=== PATIENT | female | born 1935 | race Caucasian/White ===

== ENCOUNTER 2017-09-07 16:40 | Inpatient (IN) | payer MEDICARE, BC ==
[~2017-09-07] VITALS: Ht 160 cm; Wt 63.6 kg
[~2017-09-07 16:40] MED LIST: AMLO2.5T2 PO; CLON0.1T PO; CLON0.5T23 PO; HYDR-4069 PO; LEVO15TA5 PO; VALS80TA2 PO
[2017-09-07] MEDS ORDERED: ipratropium/albuterol 3ml nebule NEB ONE (17:30)
[2017-09-07 17:44] LABS: BASOPHILS # (AUTO) 0.1 X10'3 (0-0.2); BASOPHILS % (AUTO) 1.2 % (0-1); EOSINOPHILS # (AUTO) 0.1 X10'3 (0-0.9); EOSINOPHILS % (AUTO) 2.3 % (0-6); HEMATOCRIT 30.7 % (35.0-45.0); HEMOGLOBIN 10.6 g/dl (12.0-16.0); LYMPHOCYTES # (AUTO) 1.5 X10'3 (1.1-4.8); LYMPHOCYTES % (AUTO) 27.3 % (21-51); MEAN CORPUSCULAR HGB CONC 34.6 % (33.0-36.5); MEAN CORPUSCULAR VOLUME 89.5 FL (78-98); MEAN PLATELET VOLUME 7.1 FL (7.4-10.4); MONOCYTES # (AUTO) 0.6 X10'3 (0-0.9); MONOCYTES % (AUTO) 10.8 % (2-12); NEUTROPHILS # (AUTO) 3.1 X10'3 (1.8-7.7); NEUTROPHILS % (AUTO) 58.4 % (42-75); PLATELET COUNT 258 X10'3 (140-440); RED BLOOD COUNT 3.44 X10'6 (4.20-5.60); RED CELL DISTRIBUTION WIDTH 14.5 % (11.5-14.5); WHITE BLOOD COUNT 5.4 X10'3 (4.5-11.0)
[2017-09-07 17:52] LABS: PARTIAL THROMBOPLASTIN TIME 29 SECONDS (22-32); PROTHROMBIN TIME 10.6 SECONDS (9.0-12.0)
[2017-09-07 18:00] LABS: ALANINE AMINOTRANSFERASE 21 U/L (12-78); ALBUMIN 3.6 G/DL (3.4-5.0); ALBUMIN/GLOBULIN RATIO 0.8 (1.1-1.5); ALKALINE PHOSPHATASE 50 IU/L (46-116); ANION GAP 11 (8-16); ASPARTATE AMINO TRANSFERASE 23 U/L (10-37); BILIRUBIN,TOTAL 0.4 MG/DL (0.1-1.0); BLOOD UREA NITROGEN 20 MG/DL (7-18); BUN/CREATININE RATIO 16.4 (6.6-38.0); CALCIUM 9.5 MG/DL (8.5-10.1); CHLORIDE 88 MMOL/L (99-107); CREATININE 1.22 MG/DL (0.40-0.90); GLUCOSE 91 MG/DL (70-104); POTASSIUM 4.1 MMOL/L (3.5-5.1); SODIUM 123 MMOL/L (135-145); TOTAL CARBON DIOXIDE 24.3 MMOL/L (24-32); TOTAL PROTEIN 8.3 G/DL (6.4-8.2); eGFR 42 ML/MIN
[2017-09-07] MEDS ORDERED: cloNIDine 0.1 mg tablet PO ONE (18:45)
[2017-09-07] MEDS ORDERED: nitroGLYCERIN 1gm ointment UD TP ONE (19:55)
[2017-09-07] MEDS ORDERED: furosemide 10 MG/1 ML 10ml inj IV ONE (19:55)
[2017-09-07] MEDS ORDERED: HYDR-4069 PO (20:01)
[2017-09-07] MEDS ORDERED: CLIN-100 PO (20:01)
[2017-09-07] MEDS ORDERED: CLON0.5T23 PO (20:01)
[2017-09-07] MEDS ORDERED: VALS160T2 PO (20:01)
[2017-09-07] MEDS ORDERED: ASPI-611 PO (20:01)
[2017-09-07] MEDS ORDERED: TRAM50TA2 PO (20:01)
[2017-09-07] MEDS ORDERED: hydrALAZINE 20mg/ml inj. IV ONE (21:05)
[2017-09-07] MEDS ORDERED: mag hydrox/Alum hydrox/simeth 30ml oral suspension PO PRN (22:00)
[2017-09-07] MEDS ORDERED: acetaminophen 325mg tablet PO PRN (22:00)
[2017-09-07] MEDS ORDERED: magnesium hydroxide 30ml (MOM) UD suspension PO PRN (22:00)
[2017-09-07] MEDS ORDERED: ondansetron/PF 4mg/2ml inj IV PRN (22:00)
[2017-09-07] MEDS ORDERED: PREVCR TOP (22:18)
[2017-09-07] MEDS ORDERED: AMLO10TA13 PO (22:23)
[2017-09-07 23:50] VITALS: BP 205/74
[2017-09-08] VITALS (8 sets, daily range): BP systolic 122–236; BP diastolic 65–92
[2017-09-08] MEDS: hydrALAZINE 25 MG tablet PO SCH ×4 (00:07→23:09)
[2017-09-08] MEDS: heparin, porcine 5000 units/ml vial SQ SCH ×3 (00:14→16:05)
[2017-09-08] MEDS ORDERED: amLODIPine 5mg tablet PO STA (01:31)
[2017-09-08] MEDS ORDERED: nitroGLYCERIN 1gm ointment UD TP ONE ×2 (02:25→03:25)
[2017-09-08] MEDS: clindamycin 150mg capsule PO SCH ×4 (02:38→19:13)
[2017-09-08] MEDS ORDERED: enalaprilat dihydrate 2.5mg/2ml vial IV ONE (03:25)
[2017-09-08] MEDS ORDERED: losartan 50mg tablet PO ONE (04:15)
[2017-09-08 06:14] LABS: BASOPHILS # (AUTO) 0.1 X10'3 (0-0.2); EOSINOPHILS # (AUTO) 0.2 X10'3 (0-0.9); HEMATOCRIT 33.3 % (35.0-45.0); HEMOGLOBIN 11.4 g/dl (12.0-16.0); LYMPHOCYTES # (AUTO) 1.2 X10'3 (1.1-4.8); LYMPHOCYTES % (AUTO) 22.9 % (21-51); MEAN CORPUSCULAR HGB CONC 34.2 % (33.0-36.5); MEAN CORPUSCULAR VOLUME 90.7 FL (78-98); MEAN PLATELET VOLUME 7.7 FL (7.4-10.4); MONOCYTES # (AUTO) 0.7 X10'3 (0-0.9); MONOCYTES % (AUTO) 13.6 % (2-12); NEUTROPHILS # (AUTO) 3.1 X10'3 (1.8-7.7); NEUTROPHILS % (AUTO) 58.5 % (42-75); PLATELET COUNT 288 X10'3 (140-440); RED BLOOD COUNT 3.67 X10'6 (4.20-5.60); RED CELL DISTRIBUTION WIDTH 14.7 % (11.5-14.5); WHITE BLOOD COUNT 5.2 X10'3 (4.5-11.0)
[2017-09-08 06:27] LABS: ALANINE AMINOTRANSFERASE 23 U/L (12-78); ALBUMIN 3.8 G/DL (3.4-5.0); ALBUMIN/GLOBULIN RATIO 0.7 (1.1-1.5); ALKALINE PHOSPHATASE 54 IU/L (46-116); ANION GAP 10 (8-16); ASPARTATE AMINO TRANSFERASE 20 U/L (10-37); BILIRUBIN,TOTAL 0.4 MG/DL (0.1-1.0); BLOOD UREA NITROGEN 20 MG/DL (7-18); BUN/CREATININE RATIO 15.6 (6.6-38.0); CALCIUM 10.2 MG/DL (8.5-10.1); CHLORIDE 89 MMOL/L (99-107); CREATININE 1.28 MG/DL (0.40-0.90); GLUCOSE 97 MG/DL (70-104); POTASSIUM 3.7 MMOL/L (3.5-5.1); SODIUM 126 MMOL/L (135-145); TOTAL CARBON DIOXIDE 27.4 MMOL/L (24-32); TOTAL PROTEIN 8.9 G/DL (6.4-8.2); eGFR 40 ML/MIN
[2017-09-08] MEDS: traMADol 50MG tablet PO SCH ×2 (07:49→19:13)
[2017-09-08] MEDS: amLODIPine 5mg tablet PO SCH ×2 (07:49→19:13)
[2017-09-08] MEDS ORDERED: iohexol 350MG/ML 100ml bottle IV ONE (11:14)
[2017-09-08] MEDS ORDERED: CETI-102 PO (13:02)
[2017-09-08] MEDS ORDERED: FLUT16SP10 (13:03)
[2017-09-08] MEDS ORDERED: CALC-965 PO (13:04)
[2017-09-08] MEDS ORDERED: MULT-955 PO (13:05)
[2017-09-08] MEDS: lactobacillus rhamnosus 10,000 MMU CELLS/CAPSULE PO SCH (19:13)
[2017-09-08] MEDS ORDERED: non-formulary drug (Clonazepam 1 TAB) PO SCH (21:00)
[2017-09-08] MEDS ORDERED: non-formulary drug (Aspirin (Aspir 81) 1 TAB) PO SCH (21:00)
[2017-09-08] MEDS: clonazePAM 0.5mg tablet PO SCH (21:31)
[2017-09-08] MEDS: aspirin 81mg tablet.DR PO SCH (21:31)
[2017-09-09] VITALS (9 sets, daily range): BP systolic 132–213; BP diastolic 54–91
[2017-09-09] MEDS: clindamycin 150mg capsule PO SCH ×4 (01:05→20:41)
[2017-09-09] MEDS: heparin, porcine 5000 units/ml vial SQ SCH ×3 (01:05→15:46)
[2017-09-09 04:59] LABS: BASOPHILS # (AUTO) 0.1 X10'3 (0-0.2); BASOPHILS % (AUTO) 1.1 % (0-1); EOSINOPHILS # (AUTO) 0.3 X10'3 (0-0.9); EOSINOPHILS % (AUTO) 4.5 % (0-6); HEMATOCRIT 32.1 % (35.0-45.0); LYMPHOCYTES # (AUTO) 1.3 X10'3 (1.1-4.8); MEAN CORPUSCULAR HEMOGLOBIN 30.7 PG (27.0-31.0); MEAN CORPUSCULAR HGB CONC 34.3 % (33.0-36.5); MEAN CORPUSCULAR VOLUME 89.6 FL (78-98); MEAN PLATELET VOLUME 7.8 FL (7.4-10.4); MONOCYTES # (AUTO) 0.9 X10'3 (0-0.9); MONOCYTES % (AUTO) 13.2 % (2-12); NEUTROPHILS # (AUTO) 4.4 X10'3 (1.8-7.7); NEUTROPHILS % (AUTO) 63.2 % (42-75); PLATELET COUNT 270 X10'3 (140-440); RED BLOOD COUNT 3.59 X10'6 (4.20-5.60); RED CELL DISTRIBUTION WIDTH 14.5 % (11.5-14.5)
[2017-09-09 05:35] LABS: ALANINE AMINOTRANSFERASE 20 U/L (12-78); ALBUMIN 3.5 G/DL (3.4-5.0); ALBUMIN/GLOBULIN RATIO 0.7 (1.1-1.5); ALKALINE PHOSPHATASE 50 IU/L (46-116); ANION GAP 12 (8-16); ASPARTATE AMINO TRANSFERASE 22 U/L (10-37); BILIRUBIN,TOTAL 0.3 MG/DL (0.1-1.0); BLOOD UREA NITROGEN 29 MG/DL (7-18); BUN/CREATININE RATIO 17.5 (6.6-38.0); CALCIUM 9.3 MG/DL (8.5-10.1); CHLORIDE 91 MMOL/L (99-107); CREATININE 1.66 MG/DL (0.40-0.90); GLUCOSE 100 MG/DL (70-104); POTASSIUM 3.9 MMOL/L (3.5-5.1); SODIUM 127 MMOL/L (135-145); TOTAL PROTEIN 8.4 G/DL (6.4-8.2); eGFR 30 ML/MIN
[2017-09-09] MEDS: amLODIPine 5mg tablet PO SCH ×2 (07:42→20:41)
[2017-09-09] MEDS: traMADol 50MG tablet PO SCH ×2 (07:43→20:41)
[2017-09-09] MEDS: lactobacillus rhamnosus 10,000 MMU CELLS/CAPSULE PO SCH ×2 (07:43→20:41)
[2017-09-09] MEDS: hydrALAZINE 25 MG tablet PO SCH ×2 (07:43→15:46)
[2017-09-09] MEDS ORDERED: hydrALAZINE 20mg/ml inj. IV PRN (09:15)
[2017-09-09] MEDS: cloNIDine 0.1 mg tablet PO SCH ×3 (09:36→20:42)
[2017-09-09] MEDS: normal saline 1000ml 1,000 ML IV SCH (13:21)
[2017-09-09] MEDS: aspirin 81mg tablet.DR PO SCH (20:41)
[2017-09-09] MEDS: clonazePAM 0.5mg tablet PO SCH (20:44)
[2017-09-10] MEDS: hydrALAZINE 25 MG tablet PO SCH ×3 (00:53→17:02)
[2017-09-10] MEDS: heparin, porcine 5000 units/ml vial SQ SCH ×3 (00:53→17:00)
[2017-09-10] MEDS: clindamycin 150mg capsule PO SCH ×4 (01:00→20:43)
[2017-09-10 03:00] VITALS: BP 135/53
[2017-09-10] MEDS: normal saline 1000ml 1,000 ML IV SCH ×3 (03:28→21:02)
[2017-09-10 05:30] VITALS: BP 143/54
[2017-09-10 05:59] LABS: BASOPHILS # (AUTO) 0.1 X10'3 (0-0.2); BASOPHILS % (AUTO) 1.5 % (0-1); EOSINOPHILS # (AUTO) 0.4 X10'3 (0-0.9); EOSINOPHILS % (AUTO) 8.1 % (0-6); HEMATOCRIT 28.5 % (35.0-45.0); HEMOGLOBIN 9.8 g/dl (12.0-16.0); LYMPHOCYTES # (AUTO) 1.6 X10'3 (1.1-4.8); LYMPHOCYTES % (AUTO) 31.7 % (21-51); MEAN CORPUSCULAR HEMOGLOBIN 30.6 PG (27.0-31.0); MEAN CORPUSCULAR HGB CONC 34.2 % (33.0-36.5); MEAN CORPUSCULAR VOLUME 89.5 FL (78-98); MONOCYTES # (AUTO) 0.7 X10'3 (0-0.9); MONOCYTES % (AUTO) 15.1 % (2-12); NEUTROPHILS # (AUTO) 2.1 X10'3 (1.8-7.7); NEUTROPHILS % (AUTO) 43.6 % (42-75); PLATELET COUNT 227 X10'3 (140-440); RED BLOOD COUNT 3.19 X10'6 (4.20-5.60); RED CELL DISTRIBUTION WIDTH 14.5 % (11.5-14.5); WHITE BLOOD COUNT 4.9 X10'3 (4.5-11.0)
[2017-09-10 06:13] LABS: ALANINE AMINOTRANSFERASE 21 U/L (12-78); ALBUMIN/GLOBULIN RATIO 0.7 (1.1-1.5); ANION GAP 8 (8-16); ASPARTATE AMINO TRANSFERASE 21 U/L (10-37); BILIRUBIN,TOTAL 0.2 MG/DL (0.1-1.0); BLOOD UREA NITROGEN 38 MG/DL (7-18); BUN/CREATININE RATIO 17.9 (6.6-38.0); CALCIUM 8.1 MG/DL (8.5-10.1); CHLORIDE 95 MMOL/L (99-107); CREATININE 2.12 MG/DL (0.40-0.90); GLUCOSE 87 MG/DL (70-104); POTASSIUM 4.5 MMOL/L (3.5-5.1); SODIUM 127 MMOL/L (135-145); TOTAL CARBON DIOXIDE 24.5 MMOL/L (24-32); TOTAL PROTEIN 7.3 G/DL (6.4-8.2); eGFR 22 ML/MIN
[2017-09-10 06:14] LABS: ALKALINE PHOSPHATASE 44 IU/L (46-116)
[2017-09-10] MEDS: amLODIPine 5mg tablet PO SCH ×2 (07:33→20:43)
[2017-09-10] MEDS: traMADol 50MG tablet PO SCH ×2 (07:33→20:43)
[2017-09-10] MEDS: lactobacillus rhamnosus 10,000 MMU CELLS/CAPSULE PO SCH ×2 (07:33→20:43)
[2017-09-10] MEDS: cloNIDine 0.1 mg tablet PO SCH ×3 (07:33→20:43)
[2017-09-10 11:00] VITALS: BP 130/46
[2017-09-10 15:00] VITALS: BP 143/53
[2017-09-10 19:00] VITALS: BP 180/58
[2017-09-10] MEDS: aspirin 81mg tablet.DR PO SCH (20:43)
[2017-09-10] MEDS: clonazePAM 0.5mg tablet PO SCH (20:48)
[2017-09-10 23:00] VITALS: BP 166/60
[2017-09-11] MEDS: heparin, porcine 5000 units/ml vial SQ SCH ×2 (00:57→07:52)
[2017-09-11] MEDS: hydrALAZINE 25 MG tablet PO SCH ×2 (00:57→07:53)
[2017-09-11] MEDS: clindamycin 150mg capsule PO SCH ×2 (01:00→07:52)
[2017-09-11 03:00] VITALS: BP 170/55
[2017-09-11 05:34] LABS: BASOPHILS # (AUTO) 0.1 X10'3 (0-0.2); BASOPHILS % (AUTO) 1.5 % (0-1); EOSINOPHILS # (AUTO) 0.5 X10'3 (0-0.9); EOSINOPHILS % (AUTO) 8.6 % (0-6); HEMATOCRIT 26.8 % (35.0-45.0); HEMOGLOBIN 9.1 g/dl (12.0-16.0); LYMPHOCYTES # (AUTO) 1.6 X10'3 (1.1-4.8); LYMPHOCYTES % (AUTO) 28.1 % (21-51); MEAN CORPUSCULAR HEMOGLOBIN 30.4 PG (27.0-31.0); MEAN CORPUSCULAR HGB CONC 33.9 % (33.0-36.5); MEAN CORPUSCULAR VOLUME 89.8 FL (78-98); MEAN PLATELET VOLUME 7.9 FL (7.4-10.4); MONOCYTES # (AUTO) 0.7 X10'3 (0-0.9); MONOCYTES % (AUTO) 12.9 % (2-12); NEUTROPHILS # (AUTO) 2.7 X10'3 (1.8-7.7); NEUTROPHILS % (AUTO) 48.9 % (42-75); PLATELET COUNT 233 X10'3 (140-440); RED BLOOD COUNT 2.99 X10'6 (4.20-5.60); RED CELL DISTRIBUTION WIDTH 14.7 % (11.5-14.5); WHITE BLOOD COUNT 5.5 X10'3 (4.5-11.0)
[2017-09-11 05:59] LABS: ANION GAP 8 (8-16); BILIRUBIN,TOTAL 0.3 MG/DL (0.1-1.0); BLOOD UREA NITROGEN 31 MG/DL (7-18); BUN/CREATININE RATIO 19.5 (6.6-38.0); CALCIUM 8.1 MG/DL (8.5-10.1); CHLORIDE 97 MMOL/L (99-107); CREATININE 1.59 MG/DL (0.40-0.90); GLUCOSE 85 MG/DL (70-104); POTASSIUM 4.6 MMOL/L (3.5-5.1); SODIUM 127 MMOL/L (135-145); TOTAL CARBON DIOXIDE 22.5 MMOL/L (24-32); eGFR 31 ML/MIN
[2017-09-11 06:00] VITALS: BP 174/60
[2017-09-11 06:00] LABS: ALANINE AMINOTRANSFERASE 22 U/L (12-78); ALBUMIN/GLOBULIN RATIO 0.7 (1.1-1.5); ALKALINE PHOSPHATASE 47 IU/L (46-116); ASPARTATE AMINO TRANSFERASE 22 U/L (10-37); TOTAL PROTEIN 7.1 G/DL (6.4-8.2)
[2017-09-11] MEDS: cloNIDine 0.1 mg tablet PO SCH (07:53)
[2017-09-11] MEDS: lactobacillus rhamnosus 10,000 MMU CELLS/CAPSULE PO SCH (07:53)
[2017-09-11] MEDS: traMADol 50MG tablet PO SCH (07:53)
[2017-09-11] MEDS: amLODIPine 5mg tablet PO SCH (07:53)
[2017-09-11 11:00] VITALS: BP 134/58
== END 2017-09-11 15:00 | DRG 682 ==
LOC: ER 16:40 → ED HOLD 21:56 → PCU 3S 23:45
PROVIDERS: ADMIT Internal Medicine; ATTEND Family Medicine
PROC: B3201ZZ Computerized Tomography (CT Scan) of Thoracic Aorta using Low Osmolar Contrast (ICD-10-PCS; principal; 2017-09-08)
DX: N17.9 Acute kidney failure, unspecified (principal); J96.21 Acute and chronic respiratory failure with hypoxia; I16.1 Hypertensive emergency; E87.1 Hypo-osmolality and hyponatremia; G45.9 Transient cerebral ischemic attack, unspecified; I12.9 Hypertensive chronic kidney disease with stage 1 through stage 4 chronic kidney disease, or unspecified chronic kidney disease; I70.1 Atherosclerosis of renal artery; M35.00 Sjogren syndrome, unspecified; N18.9 Chronic kidney disease, unspecified; F17.200 Nicotine dependence, unspecified, uncomplicated; S99.929D Unspecified injury of unspecified foot, subsequent encounter; Z90.710 Acquired absence of both cervix and uterus; Z88.2 Allergy status to sulfonamides; Z88.0 Allergy status to penicillin; Z88.8 Allergy status to other drugs, medicaments and biological substances; Z79.82 Long term (current) use of aspirin; Z79.899 Other long term (current) drug therapy; Z85.41 Personal history of malignant neoplasm of cervix uteri; W20.8XXD Other cause of strike by thrown, projected or falling object, subsequent encounter; Y92.89 Other specified places as the place of occurrence of the external cause
CPT/HCPCS: 36415; 70450; 71045; 71275; 74174; 80053; 83880; 84484; 85025; 85610; 85730; 87070; 93005; 93306; 93975; 94640; 94760; 96374; 96375; 97116; 97162; 97530; 99285; J0360; J1644; J1940; J7030; Q9967

== ENCOUNTER 2017-10-09 22:32 | Inpatient (IN) | payer MEDICARE, BC ==
[~2017-10-09] VITALS: Ht 160 cm; Wt 62.7 kg
[~2017-10-09 22:32] MED LIST changes: -AMLO2.5T2 PO; +ASPI-611 PO; +CALC-965 PO; +CETI-102 PO; +FLUT16SP10; +MULT-955 PO; +PREVCR TOP; +TRAM50TA2 PO; +VALS160T2 PO; -VALS80TA2 PO
[2017-10-09 23:20] LABS: BASOPHILS % (AUTO) 0.3 % (0-1); EOSINOPHILS # (AUTO) 0.1 X10'3 (0-0.9); EOSINOPHILS % (AUTO) 1.1 % (0-6); HEMATOCRIT 37.1 % (35.0-45.0); HEMOGLOBIN 12.4 g/dl (12.0-16.0); LYMPHOCYTES % (AUTO) 15.1 % (21-51); MEAN CORPUSCULAR HEMOGLOBIN 30.3 PG (27.0-31.0); MEAN CORPUSCULAR HGB CONC 33.4 % (33.0-36.5); MEAN CORPUSCULAR VOLUME 90.6 FL (78-98); MEAN PLATELET VOLUME 7.6 FL (7.4-10.4); MONOCYTES # (AUTO) 0.3 X10'3 (0-0.9); MONOCYTES % (AUTO) 3.8 % (2-12); NEUTROPHILS # (AUTO) 5.3 X10'3 (1.8-7.7); NEUTROPHILS % (AUTO) 79.7 % (42-75); PLATELET COUNT 324 X10'3 (140-440); RED CELL DISTRIBUTION WIDTH 14.7 % (11.5-14.5); WHITE BLOOD COUNT 6.6 X10'3 (4.5-11.0)
[2017-10-09 23:33] LABS: PARTIAL THROMBOPLASTIN TIME 27 SECONDS (22-32); PROTHROMBIN TIME 10.7 SECONDS (9.0-12.0)
[2017-10-09 23:37] LABS: ALANINE AMINOTRANSFERASE 22 U/L (12-78); ALBUMIN 3.7 G/DL (3.4-5.0); ALBUMIN/GLOBULIN RATIO 0.6 (1.1-1.5); ALKALINE PHOSPHATASE 65 IU/L (46-116); ANION GAP 10 (8-16); ASPARTATE AMINO TRANSFERASE 20 U/L (10-37); BILIRUBIN,TOTAL 0.4 MG/DL (0.1-1.0); BLOOD UREA NITROGEN 21 MG/DL (7-18); BUN/CREATININE RATIO 22.3 (6.6-38.0); CHLORIDE 92 MMOL/L (99-107); CREATININE 0.94 MG/DL (0.40-0.90); GLUCOSE 176 MG/DL (70-104); SODIUM 127 MMOL/L (135-145); TOTAL CARBON DIOXIDE 24.8 MMOL/L (24-32); TOTAL PROTEIN 9.5 G/DL (6.4-8.2); eGFR 57 ML/MIN
[2017-10-09 23:41] LABS: CLARITY,URINE CLOUDY (Clear); COLOR,URINE YELLOW (Yellow); GLUCOSE, URINE NEGATIVE (Neg); KETONES,URINE 15 mg/dl (Neg); LEUKOCYTE ESTERASE ,URINE TRACE (Neg); NITRITES, URINE NEGATIVE (Neg); OCCULT BLOOD,URINE TRACE-INTACT (Neg); PROTEIN,URINE 100 mg/dl (Neg); UROBILINOGEN,URINE 0.2 E.U/dL (0.2-1.0)
[2017-10-09 23:46] LABS: UA COLLECTION TYPE FOLEY CATH
[2017-10-09 23:47] LABS: BACTERIA,URINE 4+ /HPF (Neg); SQUAMOUS EPITHELIAL CELL,UR FEW /LPF (FEW); WBC CLUMPS,URINE MODERATE /HPF (NEGATIVE); WBC,URINE 50-100 /HPF (0-4)
[2017-10-09] MEDS ORDERED: hydrALAZINE 20mg/ml inj. IV ONE (23:50)
[2017-10-10] MEDS ORDERED: normal saline 1000ML IV soln IVB ONE ×2 (00:15→03:25)
[2017-10-10] MEDS ORDERED: cloNIDine 0.1 mg tablet PO ONE (00:15)
[2017-10-10] MEDS ORDERED: normal saline 1000ml 1,000 ML IV ONE (00:15)
[2017-10-10] MEDS ORDERED: hyDRALAzine 10mg tablet PO SCH ×2 (00:25→03:20)
[2017-10-10] MEDS: diatr meglu/diatrizoate 30ml oral sol.-(3 dose) bottle PO SCH ×3 (00:33→01:45)
[2017-10-10] MEDS ORDERED: CefTRIAXone 2gm/D5W 50ml 50 ML IV ONE (00:45)
[2017-10-10] MEDS ORDERED: iohexol 300mg/ml 100ml inj. ONE (01:45)
[2017-10-10] MEDS ORDERED: hyDRALAzine 10mg tablet PO ONE (03:20)
[2017-10-10] MEDS ORDERED: hydrALAZINE 20mg/ml inj. IV ONE (03:20)
[2017-10-10] MEDS ORDERED: magnesium hydroxide 30ml (MOM) UD suspension PO PRN (04:25)
[2017-10-10] MEDS ORDERED: morphine 4 MG/ML inj SYRINge IV PRN (04:25)
[2017-10-10] MEDS ORDERED: acetaminophen 325mg tablet PO PRN ×2 (04:25)
[2017-10-10] MEDS ORDERED: mag hydrox/Alum hydrox/simeth 30ml oral suspension PO PRN (04:25)
[2017-10-10] MEDS ORDERED: ondansetron/PF 4mg/2ml inj IV PRN (04:25)
[2017-10-10] MEDS: normal saline 1000ml 1,000 ML IV SCH ×2 (05:03→16:08)
[2017-10-10] MEDS: metroNIDAZOLE-Flagyl 500mg/NS 100 ML IV SCH ×3 (08:12→23:54)
[2017-10-10] MEDS: cloNIDine 0.1 mg tablet PO SCH ×3 (08:15→23:29)
[2017-10-10] MEDS: losartan 50mg tablet PO SCH (08:15)
[2017-10-10] MEDS: hydrALAZINE 25 MG tablet PO SCH ×3 (08:16→23:29)
[2017-10-10] MEDS: lactobacillus rhamnosus 10,000 MMU CELLS/CAPSULE PO SCH ×2 (08:16→20:04)
[2017-10-10] MEDS ORDERED: amLODIPine 5mg tablet PO ONE (09:25)
[2017-10-10] MEDS: levoFLOXACIN-Levaquin 500mg/D5 100 ML IV SCH (09:38)
[2017-10-10 11:25] VITALS: BP 150/71
[2017-10-10] MEDS ORDERED: nitroGLYCERIN 0.4mg/hour patch TD ONE (11:50)
[2017-10-10] MEDS ORDERED: AMLO10TA4 PO (12:07)
[2017-10-10] MEDS ORDERED: SINCALIDE IV ONE (12:10)
[2017-10-10] MEDS ORDERED: NORMAL SALINE IV ONE (12:10)
[2017-10-10 18:46] VITALS: BP 135/59
[2017-10-10] MEDS: clonazePAM 0.5mg tablet PO SCH (20:04)
[2017-10-10] MEDS ORDERED: non-formulary drug (Clonazepam 1 TAB) PO SCH (21:00)
[2017-10-10] MEDS ORDERED: clonazePAM 0.5mg tablet PO SCH (21:00)
[2017-10-10 23:26] VITALS: BP 103/76
[2017-10-11] MEDS: normal saline 1000ml 1,000 ML IV SCH ×3 (00:22→20:22)
[2017-10-11 05:13] LABS: BASOPHILS # (AUTO) 0.1 X10'3 (0-0.2); BASOPHILS % (AUTO) 0.9 % (0-1); EOSINOPHILS # (AUTO) 0.1 X10'3 (0-0.9); EOSINOPHILS % (AUTO) 1.7 % (0-6); HEMATOCRIT 29.2 % (35.0-45.0); HEMOGLOBIN 9.9 g/dl (12.0-16.0); LYMPHOCYTES # (AUTO) 1.4 X10'3 (1.1-4.8); LYMPHOCYTES % (AUTO) 18.2 % (21-51); MEAN CORPUSCULAR HEMOGLOBIN 30.4 PG (27.0-31.0); MEAN CORPUSCULAR HGB CONC 33.7 % (33.0-36.5); MEAN PLATELET VOLUME 7.7 FL (7.4-10.4); MONOCYTES # (AUTO) 0.7 X10'3 (0-0.9); MONOCYTES % (AUTO) 9.3 % (2-12); NEUTROPHILS # (AUTO) 5.6 X10'3 (1.8-7.7); NEUTROPHILS % (AUTO) 69.9 % (42-75); PLATELET COUNT 257 X10'3 (140-440); RED BLOOD COUNT 3.25 X10'6 (4.20-5.60); RED CELL DISTRIBUTION WIDTH 14.9 % (11.5-14.5)
[2017-10-11] MEDS: hydrALAZINE 20mg/ml inj. IV PRN (05:39)
[2017-10-11 06:07] LABS: ALBUMIN 2.8 G/DL (3.4-5.0); ANION GAP 9 (8-16); BLOOD UREA NITROGEN 22 MG/DL (7-18); BUN/CREATININE RATIO 21.6 (6.6-38.0); CALCIUM 7.9 MG/DL (8.5-10.1); CHLORIDE 102 MMOL/L (99-107); CREATININE 1.02 MG/DL (0.40-0.90); GLUCOSE 90 MG/DL (70-104); POTASSIUM 3.6 MMOL/L (3.5-5.1); SODIUM 132 MMOL/L (135-145); TOTAL CARBON DIOXIDE 21.3 MMOL/L (24-32); eGFR 52 ML/MIN
[2017-10-11 07:13] VITALS: BP 144/71
[2017-10-11] MEDS: levoFLOXACIN-Levaquin 500mg/D5 100 ML IV SCH (07:49)
[2017-10-11] MEDS: metroNIDAZOLE-Flagyl 500mg/NS 100 ML IV SCH ×3 (07:49→23:06)
[2017-10-11] MEDS: cloNIDine 0.1 mg tablet PO SCH ×3 (07:50→23:06)
[2017-10-11] MEDS: lactobacillus rhamnosus 10,000 MMU CELLS/CAPSULE PO SCH ×2 (07:50→20:31)
[2017-10-11] MEDS: amLODIPine 5mg tablet PO SCH (07:50)
[2017-10-11] MEDS: losartan 50mg tablet PO SCH (07:50)
[2017-10-11] MEDS: [UNRECOGNIZED DRUG - OTHER] PO SCH (07:50)
[2017-10-11] MEDS: hydrALAZINE 25 MG tablet PO SCH ×3 (07:50→23:06)
[2017-10-11] MEDS ORDERED: amLODIPine 5mg tablet PO SCH (08:00)
[2017-10-11] MEDS ORDERED: nitroGLYCERIN 0.4mg/hour patch TD SCH (08:00)
[2017-10-11 11:21] VITALS: BP 122/54
[2017-10-11 18:00] VITALS: BP 157/75
[2017-10-11] MEDS: clonazePAM 0.5mg tablet PO SCH (20:31)
[2017-10-11 22:00] VITALS: BP 142/67
[2017-10-12 06:32] LABS: BASOPHILS # (AUTO) 0.1 X10'3 (0-0.2); BASOPHILS % (AUTO) 0.8 % (0-1); EOSINOPHILS # (AUTO) 0.2 X10'3 (0-0.9); EOSINOPHILS % (AUTO) 3.2 % (0-6); HEMATOCRIT 27.2 % (35.0-45.0); LYMPHOCYTES # (AUTO) 1.6 X10'3 (1.1-4.8); LYMPHOCYTES % (AUTO) 23.6 % (21-51); MEAN CORPUSCULAR HEMOGLOBIN 30.1 PG (27.0-31.0); MEAN CORPUSCULAR HGB CONC 33.2 % (33.0-36.5); MEAN CORPUSCULAR VOLUME 90.8 FL (78-98); MEAN PLATELET VOLUME 7.7 FL (7.4-10.4); MONOCYTES # (AUTO) 0.8 X10'3 (0-0.9); MONOCYTES % (AUTO) 12.2 % (2-12); NEUTROPHILS % (AUTO) 60.2 % (42-75); PLATELET COUNT 226 X10'3 (140-440); RED BLOOD COUNT 2.99 X10'6 (4.20-5.60); RED CELL DISTRIBUTION WIDTH 14.9 % (11.5-14.5); WHITE BLOOD COUNT 6.7 X10'3 (4.5-11.0)
[2017-10-12] MEDS: hydrALAZINE 20mg/ml inj. IV PRN (06:36)
[2017-10-12 06:45] LABS: ALBUMIN 2.7 G/DL (3.4-5.0); ANION GAP 5 (8-16); BLOOD UREA NITROGEN 20 MG/DL (7-18); BUN/CREATININE RATIO 22.5 (6.6-38.0); CALCIUM 7.7 MG/DL (8.5-10.1); CHLORIDE 103 MMOL/L (99-107); CREATININE 0.89 MG/DL (0.40-0.90); GLUCOSE 89 MG/DL (70-104); POTASSIUM 3.4 MMOL/L (3.5-5.1); SODIUM 131 MMOL/L (135-145); TOTAL CARBON DIOXIDE 22.8 MMOL/L (24-32); eGFR 61 ML/MIN
[2017-10-12] MEDS: [UNRECOGNIZED DRUG - OTHER] PO SCH (08:00)
[2017-10-12] MEDS: levoFLOXACIN-Levaquin 500mg/D5 100 ML IV SCH ×2 (09:02→13:48)
[2017-10-12] MEDS: pantoprazole 40 MG vial IV SCH (09:02)
[2017-10-12] MEDS: metroNIDAZOLE-Flagyl 500mg/NS 100 ML IV SCH ×3 (09:02→23:52)
[2017-10-12] MEDS: losartan 50mg tablet PO SCH (09:03)
[2017-10-12] MEDS: lactobacillus rhamnosus 10,000 MMU CELLS/CAPSULE PO SCH ×2 (09:03→20:22)
[2017-10-12] MEDS: amLODIPine 5mg tablet PO SCH (09:03)
[2017-10-12] MEDS: cloNIDine 0.1 mg tablet PO SCH ×3 (09:03→23:52)
[2017-10-12] MEDS: hydrALAZINE 25 MG tablet PO SCH ×3 (09:03→23:53)
[2017-10-12] MEDS: normal saline 1000ml 1,000 ML IV SCH ×2 (09:04→16:22)
[2017-10-12 09:08] VITALS: BP 158/97
[2017-10-12] MEDS ORDERED: polyvinyl alcohol ophthalmic drops 15ml bottle EACHEYE PRN (13:10)
[2017-10-12 14:00] VITALS: BP 154/68
[2017-10-12 18:00] VITALS: BP 157/65
[2017-10-12] MEDS: clonazePAM 0.5mg tablet PO SCH (20:22)
[2017-10-12 22:00] VITALS: BP 144/59
[2017-10-13] MEDS: normal saline 1000ml 1,000 ML IV SCH (02:22)
[2017-10-13 05:00] VITALS: BP 154/69
[2017-10-13 07:17] LABS: ALBUMIN 3.1 G/DL (3.4-5.0); ANION GAP 11 (8-16); BLOOD UREA NITROGEN 16 MG/DL (7-18); BUN/CREATININE RATIO 15.7 (6.6-38.0); CALCIUM 8.1 MG/DL (8.5-10.1); CHLORIDE 100 MMOL/L (99-107); CREATININE 1.02 MG/DL (0.40-0.90); GLUCOSE 92 MG/DL (70-104); POTASSIUM 3.3 MMOL/L (3.5-5.1); SODIUM 132 MMOL/L (135-145); TOTAL CARBON DIOXIDE 20.9 MMOL/L (24-32); eGFR 52 ML/MIN
[2017-10-13 07:29] LABS: BASOPHILS % (AUTO) 0.4 % (0-1); EOSINOPHILS # (AUTO) 0.4 X10'3 (0-0.9); EOSINOPHILS % (AUTO) 4.8 % (0-6); HEMATOCRIT 30.5 % (35.0-45.0); HEMOGLOBIN 10.3 g/dl (12.0-16.0); LYMPHOCYTES # (AUTO) 1.5 X10'3 (1.1-4.8); MEAN CORPUSCULAR HEMOGLOBIN 30.3 PG (27.0-31.0); MEAN CORPUSCULAR HGB CONC 33.7 % (33.0-36.5); MONOCYTES # (AUTO) 0.9 X10'3 (0-0.9); MONOCYTES % (AUTO) 10.5 % (2-12); NEUTROPHILS # (AUTO) 5.7 X10'3 (1.8-7.7); NEUTROPHILS % (AUTO) 66.3 % (42-75); PLATELET COUNT 248 X10'3 (140-440); RED CELL DISTRIBUTION WIDTH 15.5 % (11.5-14.5); WHITE BLOOD COUNT 8.6 X10'3 (4.5-11.0)
[2017-10-13] MEDS: [UNRECOGNIZED DRUG - OTHER] PO SCH (08:00)
[2017-10-13] MEDS: amLODIPine 5mg tablet PO SCH (08:02)
[2017-10-13] MEDS: hydrALAZINE 25 MG tablet PO SCH ×2 (08:03→15:26)
[2017-10-13] MEDS: lactobacillus rhamnosus 10,000 MMU CELLS/CAPSULE PO SCH (08:03)
[2017-10-13] MEDS: pantoprazole 40 MG vial IV SCH (08:03)
[2017-10-13] MEDS: losartan 50mg tablet PO SCH (08:03)
[2017-10-13] MEDS: levoFLOXACIN-Levaquin 500mg/D5 100 ML IV SCH (08:03)
[2017-10-13] MEDS: cloNIDine 0.1 mg tablet PO SCH ×2 (08:03→15:26)
[2017-10-13 12:00] VITALS: BP 156/55
[2017-10-13] MEDS ORDERED: CIPR-230 PO (12:22)
[2017-10-13] MEDS: metroNIDAZOLE-Flagyl 500mg/NS 100 ML IV SCH ×2 (14:57→15:26)
[2017-10-13] MEDS ORDERED: potassium Cl 20 mEq SR tablet PO PRN ×2 (16:50)
[2017-10-13] MEDS ORDERED: potassium Cl 40MEQ/NS 500ml 500 ML IV PRN ×2 (16:50)
== END 2017-10-13 17:15 | disposition home health service (06) | DRG 690 ==
LOC: ER 22:34 → ED HOLD 10-10 04:22 → ORTHO 4S 10-10 11:31
PROVIDERS: ADMIT Internal Medicine; ATTEND Internal Medicine
PROC: BW211ZZ Computerized Tomography (CT Scan) of Abdomen and Pelvis using Low Osmolar Contrast (ICD-10-PCS; principal; 2017-10-10)
PROC: CF141ZZ Planar Nuclear Medicine Imaging of Gallbladder using Technetium 99m (Tc-99m) (ICD-10-PCS; 2017-10-10)
PROC: 5A09357 Assistance with Respiratory Ventilation, Less than 24 Consecutive Hours, Continuous Positive Airway Pressure (ICD-10-PCS; 2017-10-12)
DX: N39.0 Urinary tract infection, site not specified (principal); N17.9 Acute kidney failure, unspecified; E87.1 Hypo-osmolality and hyponatremia; K80.20 Calculus of gallbladder without cholecystitis without obstruction; I16.0 Hypertensive urgency; I12.9 Hypertensive chronic kidney disease with stage 1 through stage 4 chronic kidney disease, or unspecified chronic kidney disease; R29.810 Facial weakness; R47.1 Dysarthria and anarthria; B96.1 Klebsiella pneumoniae [K. pneumoniae] as the cause of diseases classified elsewhere; I70.1 Atherosclerosis of renal artery; N18.9 Chronic kidney disease, unspecified; Z85.41 Personal history of malignant neoplasm of cervix uteri; Z87.891 Personal history of nicotine dependence; Z88.0 Allergy status to penicillin; Z88.2 Allergy status to sulfonamides; Z88.8 Allergy status to other drugs, medicaments and biological substances; Z90.710 Acquired absence of both cervix and uterus; Z79.82 Long term (current) use of aspirin; Z79.899 Other long term (current) drug therapy; Z91.19 Patient's noncompliance with other medical treatment and regimen
CPT/HCPCS: 36415; 70450; 71045; 74177; 76700; 78226; 80048; 80053; 81001; 82948; 83690; 84145; 85025; 85610; 85730; 87040; 87077; 87088; 87186; 96365; 96375; 96376; 97110; 97116; 97162; 97530; 99285; A6250; A9537; C9113; J0360; J0696; J1956; J2805; J3490; J7030; J7040; Q9963; Q9967

== ENCOUNTER 2017-10-18 12:28 | Emergency (ER) | payer MEDICARE, BC ==
[~2017-10-18] VITALS: Ht 160 cm; Wt 76.4 kg
[~2017-10-18 12:28] MED LIST changes: +AMLO10TA4 PO; +CIPR-230 PO
[2017-10-18 13:18] LABS: BASOPHILS % (AUTO) 0.8 % (0-1); EOSINOPHILS # (AUTO) 0.2 X10'3 (0-0.9); EOSINOPHILS % (AUTO) 3.4 % (0-6); HEMATOCRIT 27.2 % (35.0-45.0); LYMPHOCYTES # (AUTO) 1.3 X10'3 (1.1-4.8); LYMPHOCYTES % (AUTO) 24.1 % (21-51); MEAN CORPUSCULAR HEMOGLOBIN 30.3 PG (27.0-31.0); MEAN CORPUSCULAR HGB CONC 32.9 % (33.0-36.5); MEAN PLATELET VOLUME 7.1 FL (7.4-10.4); MONOCYTES # (AUTO) 0.7 X10'3 (0-0.9); MONOCYTES % (AUTO) 13.6 % (2-12); NEUTROPHILS # (AUTO) 3.1 X10'3 (1.8-7.7); NEUTROPHILS % (AUTO) 58.1 % (42-75); PLATELET COUNT 267 X10'3 (140-440); RED BLOOD COUNT 2.96 X10'6 (4.20-5.60); RED CELL DISTRIBUTION WIDTH 16.3 % (11.5-14.5); WHITE BLOOD COUNT 5.4 X10'3 (4.5-11.0)
[2017-10-18 13:30] LABS: INR 1.1 INR; PROTHROMBIN TIME 10.9 SECONDS (9.0-12.0)
[2017-10-18 13:39] LABS: ALANINE AMINOTRANSFERASE 26 U/L (12-78); ALBUMIN 3.1 G/DL (3.4-5.0); ALBUMIN/GLOBULIN RATIO 0.7 (1.1-1.5); ALKALINE PHOSPHATASE 40 IU/L (46-116); AMYLASE 21 U/L (25-115); ANION GAP 9 (8-16); ASPARTATE AMINO TRANSFERASE 21 U/L (10-37); BILIRUBIN,TOTAL 0.3 MG/DL (0.1-1.0); BLOOD UREA NITROGEN 18 MG/DL (7-18); BUN/CREATININE RATIO 15.1 (6.6-38.0); CALCIUM 8.8 MG/DL (8.5-10.1); CHLORIDE 98 MMOL/L (99-107); CREATININE 1.19 MG/DL (0.40-0.90); GLUCOSE 98 MG/DL (70-104); LIPASE 73 U/L (73-393); POTASSIUM 3.6 MMOL/L (3.5-5.1); SODIUM 132 MMOL/L (135-145); TOTAL CARBON DIOXIDE 24.7 MMOL/L (24-32); TOTAL PROTEIN 7.5 G/DL (6.4-8.2); eGFR 44 ML/MIN
[2017-10-18] MEDS ORDERED: normal saline 1000ML IV soln IVB ONE (14:45)
[2017-10-18] MEDS ORDERED: dicyclomine 10 MG capsule PO ONE (16:25)
[2017-10-18 16:54] VITALS: BP 157/59
[2017-10-20 10:38] LABS: OCCULT BLOOD STOOL NEGATIVE (Neg)
== END 2017-10-18 16:55 | disposition home or self-care (01) ==
LOC: ER 12:28
DX: E86.0 Dehydration (principal); R19.7 Diarrhea, unspecified; N18.9 Chronic kidney disease, unspecified; I12.9 Hypertensive chronic kidney disease with stage 1 through stage 4 chronic kidney disease, or unspecified chronic kidney disease; Z90.710 Acquired absence of both cervix and uterus; Z88.0 Allergy status to penicillin; Z88.8 Allergy status to other drugs, medicaments and biological substances; Z79.82 Long term (current) use of aspirin; Z79.899 Other long term (current) drug therapy; Z88.2 Allergy status to sulfonamides
CPT/HCPCS: 36415; 80053; 82150; 82272; 83690; 85025; 85610; 99284; J7030

== ENCOUNTER 2018-03-28 08:27 | Inpatient (IN) | payer MEDICARE, BC | END 2018-03-30 13:40 | disposition home health service (06) | LOC: ER 08:27 → ED HOLD 12:37 → ORTHO 4S 20:02 | DX: I12.9 Hypertensive chronic kidney disease with stage 1 through stage 4 chronic kidney disease, or unspecified chronic kidney disease (principal); I63.9 Cerebral infarction, unspecified; N39.0 Urinary tract infection, site not specified; I65.09 Occlusion and stenosis of unspecified vertebral artery; J43.9 Emphysema, unspecified; N18.9 Chronic kidney disease, unspecified ==

== ENCOUNTER 2018-07-15 15:38 | Inpatient (IN) | payer MEDICARE, BC ==
[~2018-07-15] VITALS: Ht 160 cm; Wt 65.5 kg
[~2018-07-15 15:38] MED LIST changes: -AMLO10TA4 PO; +AMLO5TAB PO; +ATOR20TA66 PO; -CIPR-230 PO; +CLOP75TA35 PO; -FLUT16SP10; +LEVO500T89 PO; -PREVCR TOP; -TRAM50TA2 PO; -VALS160T2 PO
--- NOTE | 2018-07-15 15:49 | NUR ---
Patient to CT.
[2018-07-15 15:56] LABS: BASOPHILS # (AUTO) 0.1 X10'3 (0-0.2); EOSINOPHILS # (AUTO) 0.1 X10'3 (0-0.9); LYMPHOCYTES # (AUTO) 1.8 X10'3 (1.1-4.8); MEAN CORPUSCULAR HGB CONC 33.8 g/dL (33.0-36.5); MONOCYTES # (AUTO) 1.1 X10'3 (0-0.9); MONOCYTES % (AUTO) 14.9 % (2-12); RED BLOOD COUNT 3.99 X10'6 (4.20-5.60)
[2018-07-15 15:58] LABS: BASOPHILS % (AUTO) 1.7 % (0-1); EOSINOPHILS % (AUTO) 0.8 % (0-6); HEMATOCRIT 36.9 % (35.0-45.0); HEMOGLOBIN 12.5 g/dl (12.0-16.0); LYMPHOCYTES % (AUTO) 25.3 % (21-51); MEAN CORPUSCULAR HEMOGLOBIN 31.3 PG (27.0-31.0); MEAN CORPUSCULAR VOLUME 92.5 FL (78-98); MEAN PLATELET VOLUME 8.2 FL (7.4-10.4); NEUTROPHILS % (AUTO) 57.3 % (42-75); PLATELET COUNT 288 X10'3 (140-440); RED CELL DISTRIBUTION WIDTH 14.3 % (11.5-14.5); WHITE BLOOD COUNT 7.1 X10'3 (4.5-11.0)
[2018-07-15 16:10] LABS: ALANINE AMINOTRANSFERASE 23 U/L (12-78); ALBUMIN 4.3 G/DL (3.4-5.0); ALKALINE PHOSPHATASE 53 IU/L (46-116); ANION GAP 11 (8-16); ASPARTATE AMINO TRANSFERASE 26 U/L (10-37); BILIRUBIN,TOTAL 0.2 MG/DL (0.1-1.0); BLOOD UREA NITROGEN 21 MG/DL (7-18); BUN/CREATININE RATIO 17.9 (6.6-38.0); CALCIUM 10.4 MG/DL (8.5-10.1); CHLORIDE 95 MMOL/L (99-107); CREATININE 1.17 MG/DL (0.40-0.90); GLUCOSE 69 MG/DL (70-104); SODIUM 132 MMOL/L (135-145); TOTAL CARBON DIOXIDE 25.6 MMOL/L (24-32); TOTAL PROTEIN 8.8 G/DL (6.4-8.2); eGFR 44 ML/MIN
[2018-07-15 16:13] LABS: TROPONIN I 0.07 NG/ML (0.0-0.05)
[2018-07-15 16:18] LABS: POTASSIUM 3.8 MMOL/L (3.5-5.1)
[2018-07-15 16:19] LABS: INR 1.1 INR; PARTIAL THROMBOPLASTIN TIME 30 SECONDS (22-32)
[2018-07-15 17:57] LABS: CLARITY,URINE CLOUDY (Clear); COLOR,URINE YELLOW (Yellow); GLUCOSE, URINE NEGATIVE (Neg); KETONES,URINE NEGATIVE (Neg); LEUKOCYTE ESTERASE ,URINE LARGE (Neg); NITRITES, URINE NEGATIVE (Neg); OCCULT BLOOD,URINE NEGATIVE (Neg); PH,URINE 6.5 (4.8-8.0); PROTEIN,URINE TRACE mg/dl (Neg); UROBILINOGEN,URINE 0.2 E.U/dL (0.2-1.0)
[2018-07-15 18:17] LABS: UA COLLECTION TYPE NON-SPECIFIED
[2018-07-15 18:18] LABS: RBC,URINE 0-2 /HPF (0-2); WBC,URINE TNTC /HPF (0-4)
[2018-07-15 18:19] LABS: BACTERIA,URINE 3+ /HPF (Neg); HYALINE CASTS 0-3 /LPF (NEGATIVE); MUCUS STRANDS FEW /LPF (Neg); SQUAMOUS EPITHELIAL CELL,UR FEW /LPF (FEW); WBC CLUMPS,URINE MODERATE /HPF (NEGATIVE)
--- NOTE | 2018-07-15 18:32 | NUR ---
Tele Neuro consult in progress now, Rn Jo-Ann at bedside assisting with evaluation. Awaiting Stroke RN. Assuming care from Myranda Day shift RN.
--- NOTE | 2018-07-15 18:57 | NUR ---
daughter, fitz, at bedside (#[phone]). dell alvarez talking with pt and daughter about plan for admission d/t poss stroke and that pt has uti and plan for mri in the am also reports that pt can eat and drink. Pt lives alone and fell this am at 4 and was on the floor and found by caregiver at 10 am when ems collected her and brought her to hospital. daughter states pt "always has a uti" and pt states she has "only one kidney that works well". bp 178/83, denies any pain.
[2018-07-15] MEDS ORDERED: potassium Cl 20 mEq SR tablet PO PRN ×2 (20:10)
[2018-07-15] MEDS ORDERED: potassium Cl 40MEQ/NS 500ml 500 ML IV PRN ×2 (20:10)
[2018-07-15] MEDS ORDERED: magnesium Cl slow-release 64mg tablet PO PRN (20:10)
[2018-07-15] MEDS ORDERED: mag hydrox/Alum hydrox/simeth 30ml oral suspension PO PRN (20:10)
[2018-07-15] MEDS ORDERED: acetaminophen 325mg tablet PO PRN ×2 (20:10)
[2018-07-15] MEDS ORDERED: magnesium hydroxide 30ml (MOM) UD suspension PO PRN (20:10)
[2018-07-15] MEDS ORDERED: magnesium 2GM in 50ml NS 50 ML IV PRN (20:10)
[2018-07-15] MEDS ORDERED: magnesium 4gm in 100ml NS 100 ML IV PRN (20:10)
[2018-07-15] MEDS ORDERED: CLON-529 PO (21:27)
[2018-07-15] MEDS ORDERED: AMLO-94 PO (21:27)
[2018-07-15] MEDS ORDERED: PANT40SU2 PO (21:27)
[2018-07-16] VITALS (9 sets, daily range): BP systolic 176–218; BP diastolic 74–98
--- NOTE | 2018-07-16 01:56 | NUR ---
Patient in room ORTHO 4007. I have received report from Lary BARBOSA and had the opportunity to ask questions and assume patient care.
[2018-07-16 04:30] LABS: BASOPHILS % (AUTO) 0.2 % (0-1); EOSINOPHILS # (AUTO) 0.1 X10'3 (0-0.9); EOSINOPHILS % (AUTO) 1.8 % (0-6); HEMATOCRIT 33.1 % (35.0-45.0); HEMOGLOBIN 11.4 g/dl (12.0-16.0); LYMPHOCYTES % (AUTO) 28.4 % (21-51); MEAN CORPUSCULAR HEMOGLOBIN 31.4 PG (27.0-31.0); MEAN CORPUSCULAR HGB CONC 34.3 g/dL (33.0-36.5); MEAN CORPUSCULAR VOLUME 91.7 FL (78-98); MEAN PLATELET VOLUME 7.9 FL (7.4-10.4); MONOCYTES # (AUTO) 0.8 X10'3 (0-0.9); MONOCYTES % (AUTO) 11.7 % (2-12); NEUTROPHILS # (AUTO) 4.2 X10'3 (1.8-7.7); NEUTROPHILS % (AUTO) 57.9 % (42-75); PLATELET COUNT 289 X10'3 (140-440); RED BLOOD COUNT 3.61 X10'6 (4.20-5.60); RED CELL DISTRIBUTION WIDTH 14.5 % (11.5-14.5); WHITE BLOOD COUNT 7.2 X10'3 (4.5-11.0)
[2018-07-16 04:42] LABS: ALBUMIN 3.9 G/DL (3.4-5.0); ANION GAP 10 (8-16); BLOOD UREA NITROGEN 18 MG/DL (7-18); BUN/CREATININE RATIO 17.6 (6.6-38.0); CHLORIDE 97 MMOL/L (99-107); CHOL/HDL RATIO 2.7 (0.00-4.99); CHOLESTEROL 104 MG/DL (0-200); CREATININE 1.02 MG/DL (0.40-0.90); GLUCOSE 88 MG/DL (70-104); HDL CHOLESTEROL 39 MG/DL (35-60); LDL CHOLESTEROL 57 MG/DL (50-100); MAGNESIUM 1.8 MG/DL (1.5-2.4); POTASSIUM 3.7 MMOL/L (3.5-5.1); SODIUM 132 MMOL/L (135-145); TOTAL CARBON DIOXIDE 25.2 MMOL/L (24-32); TRIGLYCERIDES 51 MG/DL (20-135); TROPONIN I 0.05 NG/ML (0.0-0.05); eGFR 52 ML/MIN
--- NOTE | 2018-07-16 06:10 | NUR ---
Patient in room ORTHO 4007. I have received report from LETTY BARBOSA and had the opportunity to ask questions and assume patient care.
--- NOTE | 2018-07-16 06:30 | NUR ---
NOTED BP AT 0500 WAS 197/79, NO PRN HTN MEDS GIVEN OR ORDERED. ABOVE RECOMMENDED PARAMETERS. WILL CONTINUE TO MONITOR.
--- NOTE | 2018-07-16 06:46 | NUR ---
promotional table spacer PAGER ID: [phone] MESSAGE: DALLIN [phone] RE: WES 4007 BP 210/90 ONLY HAS HYDRALAZINE 25MG SCHEDULED AT 0800
[2018-07-16] MEDS ORDERED: hydrALAZINE 20mg/ml inj. IV PRN (06:55)
[2018-07-16] MEDS ORDERED: LEVOMEFOLATE CALCIUM PO SCH (08:00)
[2018-07-16] MEDS: K and/or MAG REPLACEMENT MC SCH (08:00)
[2018-07-16] MEDS: atorvastatin 20mg tablet PO SCH (09:50)
[2018-07-16] MEDS: hydrALAZINE 25 MG tablet PO SCH ×2 (09:50→20:29)
[2018-07-16] MEDS: multivitamins, therapeutics tablet PO SCH (09:51)
[2018-07-16] MEDS: enoxaparin 40mg/0.4ml syringe SQ SCH (09:51)
[2018-07-16] MEDS: clopidogrel 75mg tablet PO SCH (09:51)
[2018-07-16] MEDS: calcium carbonate/vitamin D3 tablet PO SCH (09:51)
--- NOTE | 2018-07-16 11:31 | NUR ---
PAGER ID: [phone] MESSAGE: DALLIN [phone] RE: POSITIVE STROKE, MRA REPORT RECOMMENDS CAROTID, NO ORDER.
--- NOTE | 2018-07-16 15:41 | NUR ---
PAGER ID: [phone] MESSAGE: DALLIN [phone] RE: WES [id number] PT'S SON IS HERE IF YOU HAVE TIME TO DISCUSS RESULTS.
--- NOTE | 2018-07-16 18:20 | NUR ---
Problems reprioritized. Patient report given, questions answered & plan of care reviewed with LETTY BARBOSA.
--- NOTE | 2018-07-16 19:00 | NUR ---
Patient in room ORTHO 4007. I have received report from Sandy BARBOSA and had the opportunity to ask questions and assume patient care.
[2018-07-16] MEDS: clonazePAM 0.5mg tablet PO SCH (20:29)
[2018-07-16] MEDS: aspirin 81mg tablet.DR PO SCH (20:29)
--- NOTE | 2018-07-16 21:49 | NUR ---
I called Dr. Faria the labor relations analyst hospitalist regarding need for antibiotic for positive UA and micro growing hemolytic strep in the urine. He does not want any antibiotics ordered at this time since it might be contaminated since she has no elevated wbc on lab and no fever.
[2018-07-17] VITALS (10 sets, daily range): BP systolic 186–225; BP diastolic 80–120
--- NOTE | 2018-07-17 02:47 | NUR ---
PT systolic blood pressure was slightly above the suggested parameter set by the neurologist. Dr Faria was called and he wanted to get a manual blood pressure. The manual blood pressure was lower and within the parameter. DR Faria was satisfied with that, no new orders for now.
--- NOTE | 2018-07-17 06:10 | NUR ---
Patient in room ORTHO 4007. I have received report from LETTY BARBOSA and had the opportunity to ask questions and assume patient care.
[2018-07-17 06:59] LABS: BASOPHILS # (AUTO) 0.1 X10'3 (0-0.2); BASOPHILS % (AUTO) 1.4 % (0-1); EOSINOPHILS # (AUTO) 0.1 X10'3 (0-0.9); EOSINOPHILS % (AUTO) 1.3 % (0-6); HEMATOCRIT 36.5 % (35.0-45.0); HEMOGLOBIN 12.5 g/dl (12.0-16.0); LYMPHOCYTES # (AUTO) 1.8 X10'3 (1.1-4.8); LYMPHOCYTES % (AUTO) 23.5 % (21-51); MEAN CORPUSCULAR HEMOGLOBIN 31.4 PG (27.0-31.0); MEAN CORPUSCULAR HGB CONC 34.1 g/dL (33.0-36.5); MEAN CORPUSCULAR VOLUME 92.1 FL (78-98); MONOCYTES # (AUTO) 0.9 X10'3 (0-0.9); MONOCYTES % (AUTO) 11.6 % (2-12); NEUTROPHILS # (AUTO) 4.7 X10'3 (1.8-7.7); NEUTROPHILS % (AUTO) 62.2 % (42-75); PLATELET COUNT 308 X10'3 (140-440); RED BLOOD COUNT 3.96 X10'6 (4.20-5.60); RED CELL DISTRIBUTION WIDTH 14.4 % (11.5-14.5); WHITE BLOOD COUNT 7.6 X10'3 (4.5-11.0)
[2018-07-17 07:14] LABS: ALBUMIN 4.1 G/DL (3.4-5.0); ANION GAP 12 (8-16); BLOOD UREA NITROGEN 15 MG/DL (7-18); BUN/CREATININE RATIO 15.2 (6.6-38.0); CALCIUM 9.7 MG/DL (8.5-10.1); CHLORIDE 96 MMOL/L (99-107); CREATININE 0.99 MG/DL (0.40-0.90); GLUCOSE 95 MG/DL (70-104); MAGNESIUM 1.7 MG/DL (1.5-2.4); POTASSIUM 3.9 MMOL/L (3.5-5.1); SODIUM 132 MMOL/L (135-145); TOTAL CARBON DIOXIDE 23.8 MMOL/L (24-32); eGFR 54 ML/MIN
[2018-07-17] MEDS: hydrALAZINE 25 MG tablet PO SCH ×2 (07:20→16:01)
[2018-07-17] MEDS: enoxaparin 40mg/0.4ml syringe SQ SCH (07:21)
[2018-07-17] MEDS: atorvastatin 20mg tablet PO SCH (07:21)
[2018-07-17] MEDS: clopidogrel 75mg tablet PO SCH (07:21)
[2018-07-17] MEDS: multivitamins, therapeutics tablet PO SCH (07:21)
[2018-07-17] MEDS: calcium carbonate/vitamin D3 tablet PO SCH (07:21)
[2018-07-17] MEDS: K and/or MAG REPLACEMENT MC SCH (07:26)
[2018-07-17] MEDS: polyvinyl alcohol ophthalmic drops 15ml bottle EACHEYE PRN (07:26)
--- NOTE | 2018-07-17 09:41 | NUR ---
PAGER ID: [phone] MESSAGE: DALLIN [phone] RE: WES 4007 BP STILL ELEVATED, 191/92 DO YOU STILL WANT TO KEEP IT THIS HIGH??
[2018-07-17] MEDS ORDERED: amLODIPine 5mg tablet PO SCH (11:30)
[2018-07-17] MEDS ORDERED: lisinopril 20mg tablet PO SCH (11:30)
[2018-07-17] MEDS: pantoprazole 40mg Tablet.DR PO SCH (11:35)
--- NOTE | 2018-07-17 14:20 | NUR ---
PAGER ID: [phone] MESSAGE: DALLIN [phone] RE: WES [id number] FYI PT UNABLE TO TAKE LISINOPRIL, HAS ALLERGY. GAVE AMLODIPINE BP NOW 210/91.
[2018-07-17] MEDS: AMLODIPINE BENAZEPRIL PO SCH (16:30)
--- NOTE | 2018-07-17 18:05 | NUR ---
Problems reprioritized. Patient report given, questions answered & plan of care reviewed with LETTY BARBOSA.
--- NOTE | 2018-07-17 19:00 | NUR ---
Patient in room ORTHO 4007. I have received report from Sandy BARBOSA and had the opportunity to ask questions and assume patient care.
--- NOTE | 2018-07-17 19:54 | NUR ---
Pt ataxia on RUE is worse, all other deficits appear to be the same. Dr Faria notified, He also want to go off of the neurologist's recommendations for one more day regarding the parameters for blood pressure.
[2018-07-17] MEDS: clonazePAM 0.5mg tablet PO SCH (20:43)
[2018-07-17] MEDS: aspirin 81mg tablet.DR PO SCH (20:43)
[2018-07-17] MEDS: ciprofloxacin 250mg tablet PO SCH (22:00)
[2018-07-18 02:00] VITALS: BP 205/97
[2018-07-18 06:00] VITALS: BP 220/103
[2018-07-18 07:13] LABS: ALBUMIN 3.9 G/DL (3.4-5.0); ANION GAP 10 (8-16); BASOPHILS # (AUTO) 0.1 X10'3 (0-0.2); BASOPHILS % (AUTO) 1.4 % (0-1); BLOOD UREA NITROGEN 19 MG/DL (7-18); BUN/CREATININE RATIO 18.8 (6.6-38.0); CALCIUM 9.4 MG/DL (8.5-10.1); CHLORIDE 94 MMOL/L (99-107); CREATININE 1.01 MG/DL (0.40-0.90); EOSINOPHILS # (AUTO) 0.1 X10'3 (0-0.9); EOSINOPHILS % (AUTO) 1.6 % (0-6); GLUCOSE 98 MG/DL (70-104); HEMATOCRIT 36.5 % (35.0-45.0); HEMOGLOBIN 12.5 g/dl (12.0-16.0); LYMPHOCYTES # (AUTO) 1.8 X10'3 (1.1-4.8); LYMPHOCYTES % (AUTO) 24.7 % (21-51); MAGNESIUM 1.7 MG/DL (1.5-2.4); MEAN CORPUSCULAR HEMOGLOBIN 31.6 PG (27.0-31.0); MEAN CORPUSCULAR HGB CONC 34.2 g/dL (33.0-36.5); MEAN CORPUSCULAR VOLUME 92.3 FL (78-98); MONOCYTES # (AUTO) 0.8 X10'3 (0-0.9); MONOCYTES % (AUTO) 11.4 % (2-12); NEUTROPHILS # (AUTO) 4.5 X10'3 (1.8-7.7); NEUTROPHILS % (AUTO) 60.9 % (42-75); PLATELET COUNT 286 X10'3 (140-440); RED BLOOD COUNT 3.95 X10'6 (4.20-5.60); RED CELL DISTRIBUTION WIDTH 14.3 % (11.5-14.5); SODIUM 129 MMOL/L (135-145); TOTAL CARBON DIOXIDE 24.8 MMOL/L (24-32); WHITE BLOOD COUNT 7.4 X10'3 (4.5-11.0); eGFR 53 ML/MIN
[2018-07-18] MEDS: multivitamins, therapeutics tablet PO SCH (07:17)
[2018-07-18] MEDS: atorvastatin 20mg tablet PO SCH (07:17)
[2018-07-18] MEDS: pantoprazole 40mg Tablet.DR PO SCH (07:17)
[2018-07-18] MEDS: hydrALAZINE 25 MG tablet PO SCH ×3 (07:17→16:18)
[2018-07-18] MEDS: clopidogrel 75mg tablet PO SCH (07:17)
[2018-07-18] MEDS: enoxaparin 40mg/0.4ml syringe SQ SCH (07:18)
[2018-07-18] MEDS: polyvinyl alcohol ophthalmic drops 15ml bottle EACHEYE PRN (07:18)
[2018-07-18] MEDS: K and/or MAG REPLACEMENT MC SCH (07:31)
[2018-07-18] MEDS: AMLODIPINE BENAZEPRIL PO SCH (07:31)
[2018-07-18] MEDS: ondansetron/PF 4mg/2ml inj IV PRN ×2 (08:59→17:46)
[2018-07-18 10:00] VITALS: BP 170/82
[2018-07-18] MEDS: ciprofloxacin 250mg tablet PO SCH ×2 (10:09→20:37)
[2018-07-18] MEDS ORDERED: LOSA50TA3 PO (10:16)
[2018-07-18] MEDS ORDERED: AMLO10TA13 PO (10:23)
--- NOTE | 2018-07-18 10:25 | NUR ---
Paged Dr Garza regarding updated med rec and need for losartan to be addressed.
[2018-07-18] MEDS: amLODIPine 5mg tablet PO SCH (11:20)
[2018-07-18 14:00] VITALS: BP 193/90
--- NOTE | 2018-07-18 15:10 | NUR ---
Dr Garza here, discussed updated med rec, Dr states she will address order for losartan.
--- NOTE | 2018-07-18 17:30 | NUR ---
Call to Dr Garza regarding losartan. New order
--- NOTE | 2018-07-18 17:47 | NUR ---
PT CO NAUSEA, TREATED WITH ZOFRAN
[2018-07-18] MEDS: losartan 50mg tablet PO SCH (17:48)
[2018-07-18 18:00] VITALS: BP 211/133
--- NOTE | 2018-07-18 18:33 | NUR ---
Report to Isha BARBOSA
--- NOTE | 2018-07-18 19:05 | NUR ---
REPORT REC'D FROM CHELSEY MANZANO.
[2018-07-18] MEDS: aspirin 81mg tablet.DR PO SCH (20:37)
[2018-07-18] MEDS: clonazePAM 0.5mg tablet PO SCH (20:37)
[2018-07-18] MEDS: lactobacillus rhamnosus 10,000 MMU CELLS/CAPSULE PO SCH (20:37)
[2018-07-18 22:00] VITALS: BP 191/92
[2018-07-19] MEDS: hydrALAZINE 25 MG tablet PO SCH ×2 (00:18→07:46)
[2018-07-19 05:27] LABS: BASOPHILS # (AUTO) 0.1 X10'3 (0-0.2); EOSINOPHILS # (AUTO) 0.1 X10'3 (0-0.9); EOSINOPHILS % (AUTO) 1.4 % (0-6); HEMATOCRIT 36.2 % (35.0-45.0); HEMOGLOBIN 12.2 g/dl (12.0-16.0); MEAN CORPUSCULAR HEMOGLOBIN 31.5 PG (27.0-31.0); MEAN CORPUSCULAR HGB CONC 33.8 g/dL (33.0-36.5); MEAN CORPUSCULAR VOLUME 93.1 FL (78-98); MEAN PLATELET VOLUME 7.7 FL (7.4-10.4); MONOCYTES # (AUTO) 0.7 X10'3 (0-0.9); MONOCYTES % (AUTO) 12.2 % (2-12); NEUTROPHILS # (AUTO) 3.2 X10'3 (1.8-7.7); NEUTROPHILS % (AUTO) 52.4 % (42-75); PLATELET COUNT 281 X10'3 (140-440); RED BLOOD COUNT 3.89 X10'6 (4.20-5.60); RED CELL DISTRIBUTION WIDTH 14.5 % (11.5-14.5); WHITE BLOOD COUNT 6.1 X10'3 (4.5-11.0)
[2018-07-19 05:43] LABS: ALBUMIN 3.7 G/DL (3.4-5.0); ANION GAP 9 (8-16); BLOOD UREA NITROGEN 25 MG/DL (7-18); BUN/CREATININE RATIO 21.2 (6.6-38.0); CALCIUM 9.1 MG/DL (8.5-10.1); CHLORIDE 94 MMOL/L (99-107); CREATININE 1.18 MG/DL (0.40-0.90); GLUCOSE 98 MG/DL (70-104); MAGNESIUM 1.8 MG/DL (1.5-2.4); SODIUM 128 MMOL/L (135-145); TOTAL CARBON DIOXIDE 25.5 MMOL/L (24-32); eGFR 44 ML/MIN
[2018-07-19 06:00] VITALS: BP 159/64
--- NOTE | 2018-07-19 06:23 | NUR ---
Patient in room ORTHO 4007. I have received report from Hanna BARBOSA and had the opportunity to ask questions and assume patient care.
[2018-07-19] MEDS: pantoprazole 40mg Tablet.DR PO SCH (07:43)
[2018-07-19] MEDS: losartan 50mg tablet PO SCH (07:49)
[2018-07-19] MEDS: lactobacillus rhamnosus 10,000 MMU CELLS/CAPSULE PO SCH (07:50)
[2018-07-19] MEDS: atorvastatin 20mg tablet PO SCH (07:52)
[2018-07-19] MEDS: amLODIPine 5mg tablet PO SCH (07:53)
[2018-07-19] MEDS: clopidogrel 75mg tablet PO SCH (07:55)
[2018-07-19] MEDS: multivitamins, therapeutics tablet PO SCH (07:57)
[2018-07-19] MEDS: K and/or MAG REPLACEMENT MC SCH (08:00)
[2018-07-19] MEDS: enoxaparin 40mg/0.4ml syringe SQ SCH (08:00)
[2018-07-19 08:57] VITALS: BP 154/69
[2018-07-19] MEDS ORDERED: HYDR-4069 PO (08:58)
[2018-07-19] MEDS ORDERED: CIPR250T4 PO (08:58)
[2018-07-19] MEDS: ciprofloxacin 250mg tablet PO SCH (10:58)
--- NOTE | 2018-07-19 11:58 | NUR ---
Student Medication Administration:For this medication-pass time frame [id number], all medications were reviewed, administered and documented per hospital policy by Latesha Lee. Student documentation:I have reviewed and agree with all interventions, assessments performed and documented by Latesha Lee.
[2018-07-19 12:07] VITALS: BP 152/58
== END 2018-07-19 13:30 | DRG 65 ==
LOC: ER 15:38 → ORTHO 4S 07-16 01:37 → CMPBEDREQ 07-17 15:12
PROVIDERS: ADMIT Hospitalist; ATTEND Internal Medicine
DX: I63.9 Cerebral infarction, unspecified (principal); N39.0 Urinary tract infection, site not specified; N18.9 Chronic kidney disease, unspecified; R32 Unspecified urinary incontinence; F43.10 Post-traumatic stress disorder, unspecified; I12.9 Hypertensive chronic kidney disease with stage 1 through stage 4 chronic kidney disease, or unspecified chronic kidney disease; B95.2 Enterococcus as the cause of diseases classified elsewhere; Z79.02 Long term (current) use of antithrombotics/antiplatelets; Z90.710 Acquired absence of both cervix and uterus; Z87.891 Personal history of nicotine dependence; Z88.0 Allergy status to penicillin; Z88.2 Allergy status to sulfonamides; Z88.8 Allergy status to other drugs, medicaments and biological substances; Z90.49 Acquired absence of other specified parts of digestive tract; Z85.41 Personal history of malignant neoplasm of cervix uteri; W18.39XA Other fall on same level, initial encounter; Y93.89 Activity, other specified; Y92.89 Other specified places as the place of occurrence of the external cause; Y99.8 Other external cause status
CPT/HCPCS: 36415; 70450; 70544; 70547; 70551; 71045; 80048; 80053; 80061; 81001; 83735; 84484; 85025; 85610; 85730; 87070; 87077; 87088; 87186; 93005; 93306; 93880; 97110; 97116; 97162; 97530; 99285; G0378; J0360; J1650; J2405

== ENCOUNTER 2018-10-07 15:40 | Inpatient (IN) | payer MEDICARE, BC ==
[~2018-10-07] VITALS: Ht 160 cm; Wt 65.0 kg
[~2018-10-07 15:40] MED LIST changes: +AMLO10TA13 PO; -AMLO5TAB PO; -CETI-102 PO; +CIPR250T4 PO; +CLON-529 PO; -CLON0.1T PO; -LEVO500T89 PO; +LOSA50TA3 PO; +PANT40SU2 PO
--- NOTE | 2018-10-07 16:13 | NUR ---
BIB WC WITH DAUGHTER. C/O GENERAL WEAKNESS X 2 WEEKS. HX UTI. LABWORK DONE AT PMD OFFICE AND SUGGESTED THAT PATIENT COME TO ER FOR FURTHER WORKUP.
--- NOTE | 2018-10-07 17:09 | NUR ---
straight cath for urinalysis and sent to the lab. tolerated well.
[2018-10-07 17:22] LABS: BASOPHILS # (AUTO) 0.1 X10'3 (0-0.2); BASOPHILS % (AUTO) 1.9 % (0-1); EOSINOPHILS # (AUTO) 0.2 X10'3 (0-0.9); EOSINOPHILS % (AUTO) 5.5 % (0-6); HEMATOCRIT 27.9 % (35.0-45.0); HEMOGLOBIN 9.4 g/dl (12.0-16.0); LYMPHOCYTES # (AUTO) 1.3 X10'3 (1.1-4.8); MEAN CORPUSCULAR HEMOGLOBIN 31.2 PG (27.0-31.0); MEAN CORPUSCULAR HGB CONC 33.8 g/dL (33.0-36.5); MEAN CORPUSCULAR VOLUME 92.2 FL (78-98); MEAN PLATELET VOLUME 7.3 FL (7.4-10.4); MONOCYTES # (AUTO) 0.6 X10'3 (0-0.9); MONOCYTES % (AUTO) 14.3 % (2-12); NEUTROPHILS # (AUTO) 2.1 X10'3 (1.8-7.7); NEUTROPHILS % (AUTO) 48.3 % (42-75); PLATELET COUNT 281 X10'3 (140-440); RED BLOOD COUNT 3.02 X10'6 (4.20-5.60); RED CELL DISTRIBUTION WIDTH 14.3 % (11.5-14.5); WHITE BLOOD COUNT 4.3 X10'3 (4.5-11.0)
[2018-10-07 17:23] LABS: CLARITY,URINE SLIGHTLY CLOUDY (Clear); COLOR,URINE YELLOW (Yellow); GLUCOSE, URINE NEGATIVE (Neg); KETONES,URINE NEGATIVE (Neg); LEUKOCYTE ESTERASE ,URINE LARGE (Neg); NITRITES, URINE POSITIVE (Neg); OCCULT BLOOD,URINE TRACE-INTACT (Neg); PROTEIN,URINE NEGATIVE (Neg); UROBILINOGEN,URINE 0.2 E.U/dL (0.2-1.0)
[2018-10-07 17:27] LABS: UA COLLECTION TYPE STRAIGHT CATH
[2018-10-07 17:30] LABS: BACTERIA,URINE 3+ /HPF (Neg); RBC,URINE 0-2 /HPF (0-2); SQUAMOUS EPITHELIAL CELL,UR FEW /LPF (FEW)
[2018-10-07 17:31] LABS: RENAL CELLS, URINE FEW /HPF; TRANSITIONAL EPI CELLS,URINE FEW /HPF; WBC CLUMPS,URINE MODERATE /HPF (NEGATIVE)
[2018-10-07 17:42] LABS: ALANINE AMINOTRANSFERASE 27 U/L (12-78); ALBUMIN 3.7 G/DL (3.4-5.0); ALBUMIN/GLOBULIN RATIO 0.8 (1.1-1.5); ALKALINE PHOSPHATASE 58 IU/L (46-116); ANION GAP 11 (8-16); ASPARTATE AMINO TRANSFERASE 22 U/L (10-37); BILIRUBIN,TOTAL 0.3 MG/DL (0.1-1.0); BLOOD UREA NITROGEN 30 MG/DL (7-18); BUN/CREATININE RATIO 15.6 (6.6-38.0); CHLORIDE 92 MMOL/L (99-107); CREATININE 1.92 MG/DL (0.40-0.90); GLUCOSE 94 MG/DL (70-104); POTASSIUM 4.8 MMOL/L (3.5-5.1); SODIUM 126 MMOL/L (135-145); TOTAL CARBON DIOXIDE 23.5 MMOL/L (24-32); TOTAL PROTEIN 8.1 G/DL (6.4-8.2); eGFR 25 ML/MIN
[2018-10-07] MEDS ORDERED: normal saline 1000ML IV soln IVB ONE (18:10)
[2018-10-07 18:31] LABS: OCCULT BLOOD STOOL NEGATIVE (Neg)
[2018-10-07] MEDS ORDERED: potassium Cl 20 mEq SR tablet PO PRN ×2 (20:05)
[2018-10-07] MEDS ORDERED: mag hydrox/Alum hydrox/simeth 30ml oral suspension PO PRN (20:05)
[2018-10-07] MEDS ORDERED: potassium CL 10mEq/100ml bag 100 ML IV PRN ×2 (20:05)
[2018-10-07] MEDS ORDERED: ondansetron/PF 4mg/2ml inj IV PRN (20:05)
[2018-10-07] MEDS ORDERED: magnesium 2GM in 50ml NS 50 ML IV PRN (20:05)
[2018-10-07] MEDS ORDERED: magnesium Cl slow-release 64mg tablet PO PRN (20:05)
[2018-10-07] MEDS ORDERED: magnesium 4gm in 100ml NS 100 ML IV PRN (20:05)
[2018-10-07] MEDS ORDERED: docusate sod 100mg capsule PO PRN (20:05)
[2018-10-07] MEDS ORDERED: acetaminophen 325mg tablet PO PRN (20:05)
[2018-10-07] MEDS: CefTRIAXone/D5W-Rocephin 1gm 50 ML IV SCH (20:12)
[2018-10-07] MEDS: normal saline 1000ml 1,000 ML IV SCH (20:13)
--- NOTE | 2018-10-07 21:30 | NUR ---
Patient in room ORTHO 4012. I have received report from CHELSEY De La Torre and had the opportunity to ask questions and assume patient care.
[2018-10-07 22:00] VITALS: BP 189/71
[2018-10-07 23:00] VITALS: BP 190/78
[2018-10-07] MEDS ORDERED: cloNIDine 0.1 mg tablet PO ONE (23:15)
[2018-10-07] MEDS ORDERED: lactobacillus rhamnosus 10,000 MMU CELLS/CAPSULE PO ONE (23:15)
[2018-10-07] MEDS ORDERED: clonazePAM 0.5mg tablet PO ONE (23:20)
[2018-10-07] MEDS: Melatonin 3mg tablet PO SCH (23:22)
[2018-10-07] MEDS: hydrALAZINE 25 MG tablet PO SCH (23:23)
[2018-10-08 01:40] VITALS: BP 148/63
[2018-10-08 06:00] VITALS: BP 191/72
[2018-10-08] MEDS: normal saline 1000ml 1,000 ML IV SCH ×2 (06:04→16:42)
[2018-10-08 06:24] LABS: BASOPHILS # (AUTO) 0.1 X10'3 (0-0.2); EOSINOPHILS # (AUTO) 0.2 X10'3 (0-0.9); EOSINOPHILS % (AUTO) 3.3 % (0-6); HEMOGLOBIN 10.3 g/dl (12.0-16.0); LYMPHOCYTES # (AUTO) 1.2 X10'3 (1.1-4.8); LYMPHOCYTES % (AUTO) 17.5 % (21-51); MEAN CORPUSCULAR HEMOGLOBIN 31.3 PG (27.0-31.0); MEAN CORPUSCULAR HGB CONC 34.2 g/dL (33.0-36.5); MEAN CORPUSCULAR VOLUME 91.8 FL (78-98); MEAN PLATELET VOLUME 7.3 FL (7.4-10.4); MONOCYTES # (AUTO) 0.5 X10'3 (0-0.9); MONOCYTES % (AUTO) 8.2 % (2-12); NEUTROPHILS # (AUTO) 4.7 X10'3 (1.8-7.7); PLATELET COUNT 303 X10'3 (140-440); RED BLOOD COUNT 3.27 X10'6 (4.20-5.60); RED CELL DISTRIBUTION WIDTH 14.3 % (11.5-14.5); WHITE BLOOD COUNT 6.7 X10'3 (4.5-11.0)
--- NOTE | 2018-10-08 06:37 | NUR ---
Problems reprioritized. Patient report given, questions answered & plan of care reviewed with Joe Moreira.
[2018-10-08 06:54] LABS: ALANINE AMINOTRANSFERASE 24 U/L (12-78); ALBUMIN 3.4 G/DL (3.4-5.0); ALBUMIN/GLOBULIN RATIO 0.8 (1.1-1.5); ALKALINE PHOSPHATASE 54 IU/L (46-116); ANION GAP 11 (8-16); ASPARTATE AMINO TRANSFERASE 19 U/L (10-37); BILIRUBIN,TOTAL 0.3 MG/DL (0.1-1.0); BLOOD UREA NITROGEN 22 MG/DL (7-18); BUN/CREATININE RATIO 15.7 (6.6-38.0); CALCIUM 8.7 MG/DL (8.5-10.1); CHLORIDE 100 MMOL/L (99-107); GLUCOSE 78 MG/DL (70-104); MAGNESIUM 1.7 MG/DL (1.5-2.4); POTASSIUM 4.1 MMOL/L (3.5-5.1); SODIUM 134 MMOL/L (135-145); TOTAL CARBON DIOXIDE 23.2 MMOL/L (24-32); TOTAL PROTEIN 7.9 G/DL (6.4-8.2); eGFR 36 ML/MIN
[2018-10-08] MEDS ORDERED: clopidogrel 75mg tablet PO SCH (08:00)
[2018-10-08] MEDS: K and/or MAG REPLACEMENT MC SCH (08:00)
[2018-10-08] MEDS: LEVOMEFOLATE CALCIUM PO SCH (08:00)
[2018-10-08] MEDS: calcium carbonate/vitamin D3 tablet PO SCH (09:25)
[2018-10-08] MEDS: lactobacillus rhamnosus 10,000 MMU CELLS/CAPSULE PO SCH ×2 (09:25→20:02)
[2018-10-08] MEDS: losartan 50mg tablet PO SCH (09:25)
[2018-10-08] MEDS: multivitamins, therapeutics tablet PO SCH (09:25)
[2018-10-08] MEDS: CefTRIAXone/D5W-Rocephin 1gm 50 ML IV SCH (09:25)
[2018-10-08] MEDS: amLODIPine 5mg tablet PO SCH (09:26)
[2018-10-08] MEDS: atorvastatin 20mg tablet PO SCH (09:26)
[2018-10-08] MEDS: pantoprazole 40mg Tablet.DR PO SCH (09:26)
[2018-10-08] MEDS: hydrALAZINE 25 MG tablet PO SCH ×2 (09:27→16:42)
[2018-10-08] MEDS: cloNIDine 0.1 mg tablet PO SCH ×2 (09:27→20:02)
[2018-10-08] MEDS: clopidogrel 75mg tablet PO SCH (09:27)
[2018-10-08] MEDS: aspirin 81mg tablet.DR PO SCH (09:27)
--- NOTE | 2018-10-08 15:14 | NUR ---
PRESSURE ULCER EDUCATION: DEFINITION: A pressure ulcer is an area of skin that breaks down when you stay in one position too long. The constant pressure against the skin reduces the blood flow to that area and the affected tissue dies. CAUSES: "Being bedridden or in a wheelchair "Fragile skin "Having a chronic condition, such as diabetes or vascular disease "Inability to move certain parts of your body without assistance "Older age "Incontinence of urine or stool SYMPTOMS: "A reddened area that DOES NOT turn white when pressed on - this can be the beginning of a pressure ulcer "A blister, deep sore or a crater - these can be advanced pressure ulcers FIRST AID: "Relieve the pressure on this area "Keep the area clean and dry "Call your primary doctor if you see any of the above symptoms "DO NOT massage the area "DO NOT use a donut shaped or ring shaped pillow- these actually interfere with the blood flow and cause complications PREVENTION: "Check for pressure ulcers everyday "Change position at least every two hours to relieve pressure "Use items that help relieve pressure- pillows, sheepskin, foam padding, and powders. "Keep skin clean and dry "Eat healthy well balanced meals "Exercise daily IF YOU SEE ANY OF THESE SYMPTOMS WHILE IN THE HOSPITAL - TELL YOUR NURSE IMMEDIATELY. IF YOU SEE ANY OF THESE SYMPTOMS WHILE AT HOME OR HAVE ANY QUESTIONS OR CONCERNS ABOUT PRESSURE ULCERS - CALL YOUR PRIMARY DOCTOR IMMEDIATELY. Addendum: 10/08/18 at 1514 by Maria Alejandra Prince RN Amended: Links added.
--- NOTE | 2018-10-08 17:27 | NUR ---
Pt satting at 87-90 at rest. Request PRN O2. Dr Junior verbal Ok for order.
[2018-10-08 18:00] VITALS: BP 148/58
[2018-10-08] MEDS: ipratropium/albuterol 3ml nebule NEB SCH (19:38)
[2018-10-08] MEDS: Melatonin 3mg tablet PO SCH (20:01)
[2018-10-08] MEDS: clonazePAM 0.5mg tablet PO SCH (20:02)
[2018-10-08] MEDS ORDERED: aspirin 81mg tablet.DR PO SCH (21:00)
[2018-10-08 22:00] VITALS: BP 161/63
[2018-10-09] MEDS: hydrALAZINE 25 MG tablet PO SCH ×3 (00:06→15:09)
[2018-10-09] MEDS: normal saline 1000ml 1,000 ML IV SCH ×2 (02:01→12:14)
[2018-10-09 06:10] VITALS: BP 176/66
--- NOTE | 2018-10-09 06:12 | NUR ---
Problems reprioritized. Patient report given, questions answered & plan of care reviewed with CHELSEY JAVIER. Patient slept well throughout the night. Easily aroused for medications and VS. Home CPAP in place during sleeping hours.
--- NOTE | 2018-10-09 06:31 | NUR ---
Patient in room ORTHO 4012. I have received report from Kassidy BARBOSA and had the opportunity to ask questions and assume patient care.
[2018-10-09 07:49] LABS: ALBUMIN 3.1 G/DL (3.4-5.0); ANION GAP 9 (8-16); BILIRUBIN,TOTAL 0.2 MG/DL (0.1-1.0); BLOOD UREA NITROGEN 19 MG/DL (7-18); BUN/CREATININE RATIO 17.3 (6.6-38.0); CALCIUM 8.4 MG/DL (8.5-10.1); CHLORIDE 104 MMOL/L (99-107); GLUCOSE 76 MG/DL (70-104); MAGNESIUM 1.8 MG/DL (1.5-2.4); SODIUM 136 MMOL/L (135-145); TOTAL CARBON DIOXIDE 22.6 MMOL/L (24-32); TOTAL PROTEIN 7.3 G/DL (6.4-8.2); eGFR 48 ML/MIN
[2018-10-09 07:50] LABS: ALANINE AMINOTRANSFERASE 21 U/L (12-78); ALBUMIN/GLOBULIN RATIO 0.7 (1.1-1.5); ALKALINE PHOSPHATASE 50 IU/L (46-116); ASPARTATE AMINO TRANSFERASE 18 U/L (10-37)
[2018-10-09 07:54] LABS: BASOPHILS # (AUTO) 0.1 X10'3 (0-0.2); BASOPHILS % (AUTO) 1.3 % (0-1); EOSINOPHILS # (AUTO) 0.2 X10'3 (0-0.9); EOSINOPHILS % (AUTO) 5.1 % (0-6); HEMATOCRIT 27.3 % (35.0-45.0); LYMPHOCYTES # (AUTO) 1.3 X10'3 (1.1-4.8); LYMPHOCYTES % (AUTO) 33.9 % (21-51); MEAN CORPUSCULAR HEMOGLOBIN 31.1 PG (27.0-31.0); MEAN CORPUSCULAR HGB CONC 33.1 g/dL (33.0-36.5); MEAN PLATELET VOLUME 7.6 FL (7.4-10.4); MONOCYTES # (AUTO) 0.5 X10'3 (0-0.9); MONOCYTES % (AUTO) 12.2 % (2-12); NEUTROPHILS # (AUTO) 1.9 X10'3 (1.8-7.7); NEUTROPHILS % (AUTO) 47.5 % (42-75); PLATELET COUNT 262 X10'3 (140-440); RED CELL DISTRIBUTION WIDTH 14.6 % (11.5-14.5)
[2018-10-09] MEDS: K and/or MAG REPLACEMENT MC SCH (08:00)
[2018-10-09] MEDS: LEVOMEFOLATE CALCIUM PO SCH (08:00)
[2018-10-09] MEDS: ipratropium/albuterol 3ml nebule NEB SCH ×2 (08:34→18:51)
[2018-10-09] MEDS: pantoprazole 40mg Tablet.DR PO SCH (08:52)
[2018-10-09] MEDS: clopidogrel 75mg tablet PO SCH (08:52)
[2018-10-09] MEDS: cloNIDine 0.1 mg tablet PO SCH ×2 (08:52→19:16)
[2018-10-09] MEDS: amLODIPine 5mg tablet PO SCH (08:52)
[2018-10-09] MEDS: aspirin 81mg tablet.DR PO SCH (08:52)
[2018-10-09] MEDS: lactobacillus rhamnosus 10,000 MMU CELLS/CAPSULE PO SCH ×2 (08:52→19:16)
[2018-10-09] MEDS: calcium carbonate/vitamin D3 tablet PO SCH (08:52)
[2018-10-09] MEDS: atorvastatin 20mg tablet PO SCH (08:52)
[2018-10-09] MEDS: losartan 50mg tablet PO SCH (08:52)
[2018-10-09] MEDS: multivitamins, therapeutics tablet PO SCH (08:52)
[2018-10-09] MEDS: CefTRIAXone/D5W-Rocephin 1gm 50 ML IV SCH (08:53)
[2018-10-09 10:00] VITALS: BP 173/70
--- NOTE | 2018-10-09 10:31 | NUR ---
Nutrition consult re: altered healing, multiple comorbidities. Per [facility] notes patient with SDTI to coccygeal area with no noted open areas. Maurizio 18. Pt currently on heart healthy diet with documented 50-100% PO intake meeting nutrient needs. Pt admit with metabolic encephalopathy secondary to UTI, blood and urine cultures pending. Pt with hx inflammatory bowel disease, currently receiving routine MVI and Oysco D tablet. No further nutrition intervention warranted at this time. Will continue to follow. Addendum: 10/09/18 at [address] Amended: Links added.
[2018-10-09 13:14] VITALS: BP 171/74
[2018-10-09] MEDS ORDERED: hydrALAZINE 20mg/ml inj. IV ONE (17:10)
--- NOTE | 2018-10-09 17:54 | NUR ---
I paged Dr. Junior about patient BP not coming down, he ordered hydralazine IV. Addendum: 10/09/18 at 1755 by Nai Klein RN Dr. Junior decreased IV fluids to 50ml/hr also.
[2018-10-09 18:00] VITALS: BP 178/70
--- NOTE | 2018-10-09 18:20 | NUR ---
Patient report given to Kassidy Cochran RN
[2018-10-09] MEDS: Melatonin 3mg tablet PO SCH (19:16)
[2018-10-09] MEDS: clonazePAM 0.5mg tablet PO SCH (19:16)
[2018-10-09 22:00] VITALS: BP 153/58
[2018-10-10] MEDS: hydrALAZINE 25 MG tablet PO SCH ×4 (00:12→23:16)
[2018-10-10] MEDS: normal saline 1000ml 1,000 ML IV SCH ×2 (03:34→22:51)
[2018-10-10 06:00] VITALS: BP 162/72
--- NOTE | 2018-10-10 06:00 | NUR ---
Patient in room ORTHO 4012. I have received report from and had the opportunity to ask questions and assume patient care CHELSEY Beverly.
--- NOTE | 2018-10-10 06:40 | NUR ---
Problems reprioritized. Patient report given, questions answered & plan of care reviewed with CHELSEY Moreira.
[2018-10-10 06:45] LABS: BASOPHILS # (AUTO) 0.1 X10'3 (0-0.2); BASOPHILS % (AUTO) 1.5 % (0-1); EOSINOPHILS # (AUTO) 0.4 X10'3 (0-0.9); EOSINOPHILS % (AUTO) 6.6 % (0-6); HEMATOCRIT 24.9 % (35.0-45.0); HEMOGLOBIN 8.5 g/dl (12.0-16.0); LYMPHOCYTES # (AUTO) 1.6 X10'3 (1.1-4.8); LYMPHOCYTES % (AUTO) 27.3 % (21-51); MEAN CORPUSCULAR HEMOGLOBIN 31.5 PG (27.0-31.0); MEAN CORPUSCULAR VOLUME 92.7 FL (78-98); MEAN PLATELET VOLUME 7.6 FL (7.4-10.4); MONOCYTES # (AUTO) 0.7 X10'3 (0-0.9); MONOCYTES % (AUTO) 11.2 % (2-12); NEUTROPHILS # (AUTO) 3.2 X10'3 (1.8-7.7); NEUTROPHILS % (AUTO) 53.4 % (42-75); PLATELET COUNT 239 X10'3 (140-440); RED BLOOD COUNT 2.68 X10'6 (4.20-5.60); RED CELL DISTRIBUTION WIDTH 14.3 % (11.5-14.5)
[2018-10-10 06:50] LABS: ALBUMIN 2.9 G/DL (3.4-5.0); ALBUMIN/GLOBULIN RATIO 0.7 (1.1-1.5); ANION GAP 10 (8-16); ASPARTATE AMINO TRANSFERASE 12 U/L (10-37); BILIRUBIN,TOTAL 0.2 MG/DL (0.1-1.0); BLOOD UREA NITROGEN 17 MG/DL (7-18); BUN/CREATININE RATIO 17.7 (6.6-38.0); CALCIUM 8.7 MG/DL (8.5-10.1); CHLORIDE 105 MMOL/L (99-107); CREATININE 0.96 MG/DL (0.40-0.90); GLUCOSE 84 MG/DL (70-104); MAGNESIUM 1.8 MG/DL (1.5-2.4); POTASSIUM 4.1 MMOL/L (3.5-5.1); SODIUM 137 MMOL/L (135-145); TOTAL CARBON DIOXIDE 21.8 MMOL/L (24-32); eGFR 56 ML/MIN
[2018-10-10 06:51] LABS: ALANINE AMINOTRANSFERASE 19 U/L (12-78); ALKALINE PHOSPHATASE 43 IU/L (46-116)
[2018-10-10] MEDS: ipratropium/albuterol 3ml nebule NEB SCH ×2 (07:13→19:50)
[2018-10-10] MEDS: K and/or MAG REPLACEMENT MC SCH (08:00)
[2018-10-10] MEDS: LEVOMEFOLATE CALCIUM PO SCH (08:00)
[2018-10-10] MEDS: lactobacillus rhamnosus 10,000 MMU CELLS/CAPSULE PO SCH ×2 (08:53→20:04)
[2018-10-10] MEDS: aspirin 81mg tablet.DR PO SCH (08:53)
[2018-10-10] MEDS: losartan 50mg tablet PO SCH (08:53)
[2018-10-10] MEDS: atorvastatin 20mg tablet PO SCH (08:53)
[2018-10-10] MEDS: clopidogrel 75mg tablet PO SCH (08:53)
[2018-10-10] MEDS: multivitamins, therapeutics tablet PO SCH (08:53)
[2018-10-10] MEDS: calcium carbonate/vitamin D3 tablet PO SCH (08:53)
[2018-10-10] MEDS: pantoprazole 40mg Tablet.DR PO SCH (08:53)
[2018-10-10] MEDS: cloNIDine 0.1 mg tablet PO SCH ×2 (08:54→20:04)
[2018-10-10] MEDS: CefTRIAXone/D5W-Rocephin 1gm 50 ML IV SCH (08:54)
[2018-10-10] MEDS: amLODIPine 5mg tablet PO SCH (08:54)
[2018-10-10 10:00] VITALS: BP 170/80
[2018-10-10 17:00] VITALS: BP 183/74
--- NOTE | 2018-10-10 18:00 | NUR ---
Problems reprioritized. Patient report given, questions answered & plan of care reviewed with CHELSEY Payton.
[2018-10-10 18:30] VITALS: BP 134/80
[2018-10-10] MEDS: clonazePAM 0.5mg tablet PO SCH (20:04)
[2018-10-10] MEDS: Melatonin 3mg tablet PO SCH (20:04)
[2018-10-10] MEDS: hydrALAZINE 20mg/ml inj. IV PRN (21:50)
[2018-10-10 22:00] VITALS: BP 173/63
[2018-10-11 00:43] VITALS: BP 161/66
--- NOTE | 2018-10-11 06:13 | NUR ---
Problems reprioritized. Patient report given, questions answered & plan of care reviewed with CHELSEY Sheriff.
[2018-10-11] MEDS: hydrALAZINE 20mg/ml inj. IV PRN (06:18)
--- NOTE | 2018-10-11 06:37 | NUR ---
Received report from Tata BARBOSA
[2018-10-11 06:43] VITALS: BP 200/74
[2018-10-11 07:10] LABS: BASOPHILS # (AUTO) 0.1 X10'3 (0-0.2); BASOPHILS % (AUTO) 1.1 % (0-1); EOSINOPHILS # (AUTO) 0.4 X10'3 (0-0.9); EOSINOPHILS % (AUTO) 4.6 % (0-6); HEMOGLOBIN 9.3 g/dl (12.0-16.0); LYMPHOCYTES # (AUTO) 1.2 X10'3 (1.1-4.8); LYMPHOCYTES % (AUTO) 14.9 % (21-51); MEAN CORPUSCULAR HEMOGLOBIN 31.5 PG (27.0-31.0); MEAN CORPUSCULAR HGB CONC 34.4 g/dL (33.0-36.5); MEAN CORPUSCULAR VOLUME 91.6 FL (78-98); MEAN PLATELET VOLUME 7.4 FL (7.4-10.4); MONOCYTES # (AUTO) 0.9 X10'3 (0-0.9); MONOCYTES % (AUTO) 10.9 % (2-12); NEUTROPHILS # (AUTO) 5.5 X10'3 (1.8-7.7); NEUTROPHILS % (AUTO) 68.5 % (42-75); PLATELET COUNT 270 X10'3 (140-440); RED BLOOD COUNT 2.95 X10'6 (4.20-5.60); RED CELL DISTRIBUTION WIDTH 14.6 % (11.5-14.5)
[2018-10-11 07:20] LABS: CHLORIDE 102 MMOL/L (99-107); GLUCOSE 89 MG/DL (70-104); POTASSIUM 3.9 MMOL/L (3.5-5.1); SODIUM 137 MMOL/L (135-145)
[2018-10-11 07:21] LABS: ALANINE AMINOTRANSFERASE 19 U/L (12-78); ALBUMIN 3.1 G/DL (3.4-5.0); ALBUMIN/GLOBULIN RATIO 0.7 (1.1-1.5); ALKALINE PHOSPHATASE 45 IU/L (46-116); ANION GAP 14 (8-16); ASPARTATE AMINO TRANSFERASE 18 U/L (10-37); BILIRUBIN,TOTAL 0.3 MG/DL (0.1-1.0); BLOOD UREA NITROGEN 15 MG/DL (7-18); BUN/CREATININE RATIO 17.2 (6.6-38.0); CALCIUM 8.5 MG/DL (8.5-10.1); CREATININE 0.87 MG/DL (0.40-0.90); MAGNESIUM 1.7 MG/DL (1.5-2.4); TOTAL PROTEIN 7.3 G/DL (6.4-8.2); eGFR 62 ML/MIN
[2018-10-11] MEDS: K and/or MAG REPLACEMENT MC SCH (08:00)
[2018-10-11] MEDS: LEVOMEFOLATE CALCIUM PO SCH (08:00)
[2018-10-11] MEDS: ipratropium/albuterol 3ml nebule NEB SCH (08:15)
[2018-10-11] MEDS: CefTRIAXone/D5W-Rocephin 1gm 50 ML IV SCH (08:23)
[2018-10-11] MEDS: multivitamins, therapeutics tablet PO SCH (08:23)
[2018-10-11] MEDS: clopidogrel 75mg tablet PO SCH (08:23)
[2018-10-11] MEDS: atorvastatin 20mg tablet PO SCH (08:24)
[2018-10-11] MEDS: aspirin 81mg tablet.DR PO SCH (08:24)
[2018-10-11] MEDS: hydrALAZINE 25 MG tablet PO SCH (08:24)
[2018-10-11] MEDS: amLODIPine 5mg tablet PO SCH (08:24)
[2018-10-11] MEDS: losartan 50mg tablet PO SCH (08:24)
[2018-10-11] MEDS: cloNIDine 0.1 mg tablet PO SCH (08:24)
[2018-10-11] MEDS: pantoprazole 40mg Tablet.DR PO SCH (08:24)
[2018-10-11] MEDS: calcium carbonate/vitamin D3 tablet PO SCH (08:24)
[2018-10-11] MEDS: lactobacillus rhamnosus 10,000 MMU CELLS/CAPSULE PO SCH (08:24)
[2018-10-11 10:35] VITALS: BP 144/60
[2018-10-11 11:44] VITALS: BP 126/58
--- NOTE | 2018-10-11 11:53 | NUR ---
F/u: Pt PO 50% avg meals fluctuating decent given age and AOx1. Receiving MVI. Pt refused breakfast this AM; LBM documented 10/06 receiving colace but per RN LBM 10/10 in report. Will continue to monitor. Rec: 1. continue heart healthy diet 2. routine bowel care; hx IBD 3. wt per rx Addendum: 10/11/18 at [address] Amended: Links added.
[2018-10-11] MEDS ORDERED: CEPH500C5 PO (12:18)
[2018-10-11] MEDS ORDERED: LACT1CAP26 PO (12:18)
--- NOTE | 2018-10-11 15:20 | NUR ---
Patient was discharged iv and tele was removed from patient. Patient was alert and oriented at time of discharge. Patient left with son in there car together.
== END 2018-10-11 15:19 | disposition home health service (06) | DRG 91 ==
LOC: ER 15:41 → ORTHO 4S 21:03 → CMPBEDREQ 21:34
PROVIDERS: ADMIT Family Medicine; ATTEND Family Medicine
PROC: 5A09357 Assistance with Respiratory Ventilation, Less than 24 Consecutive Hours, Continuous Positive Airway Pressure (ICD-10-PCS; principal; 2018-10-08)
PROC: 5A09357 Assistance with Respiratory Ventilation, Less than 24 Consecutive Hours, Continuous Positive Airway Pressure (ICD-10-PCS; 2018-10-09)
PROC: 5A09357 Assistance with Respiratory Ventilation, Less than 24 Consecutive Hours, Continuous Positive Airway Pressure (ICD-10-PCS; 2018-10-10)
DX: G92 Toxic encephalopathy (principal); N17.0 Acute kidney failure with tubular necrosis; N39.0 Urinary tract infection, site not specified; D62 Acute posthemorrhagic anemia; E87.1 Hypo-osmolality and hyponatremia; E86.0 Dehydration; I65.09 Occlusion and stenosis of unspecified vertebral artery; E78.5 Hyperlipidemia, unspecified; I12.9 Hypertensive chronic kidney disease with stage 1 through stage 4 chronic kidney disease, or unspecified chronic kidney disease; N18.9 Chronic kidney disease, unspecified; I65.03 Occlusion and stenosis of bilateral vertebral arteries; T36.8X5A Adverse effect of other systemic antibiotics, initial encounter; Z79.02 Long term (current) use of antithrombotics/antiplatelets; Z79.82 Long term (current) use of aspirin; Z82.49 Family history of ischemic heart disease and other diseases of the circulatory system; Z85.41 Personal history of malignant neoplasm of cervix uteri; Z86.73 Personal history of transient ischemic attack (TIA), and cerebral infarction without residual deficits; Z90.710 Acquired absence of both cervix and uterus; Z88.0 Allergy status to penicillin; Z88.2 Allergy status to sulfonamides; Z88.8 Allergy status to other drugs, medicaments and biological substances; Z90.49 Acquired absence of other specified parts of digestive tract; Z79.899 Other long term (current) drug therapy; Z87.891 Personal history of nicotine dependence; Y92.89 Other specified places as the place of occurrence of the external cause
CPT/HCPCS: 36415; 80053; 81001; 82272; 83605; 83735; 85025; 87040; 87081; 87088; 94640; 94760; 96360; 97110; 97116; 97162; 97530; 99285; G0378; J0360; J0696; J7030

== ENCOUNTER 2018-11-07 18:48 | Inpatient (IN) | payer MEDICARE, BC ==
[~2018-11-07] VITALS: Ht 160 cm; Wt 65.0 kg
[~2018-11-07 18:48] MED LIST changes: +CEPH500C5 PO; -CIPR250T4 PO; +LACT1CAP26 PO
[2018-11-07] MEDS ORDERED: normal saline 1000ML IV soln IV ONE (19:55)
[2018-11-07 20:17] LABS: CLARITY,URINE CLOUDY (Clear); COLOR,URINE YELLOW (Yellow); GLUCOSE, URINE NEGATIVE (Neg); KETONES,URINE NEGATIVE (Neg); LEUKOCYTE ESTERASE ,URINE LARGE (Neg); NITRITES, URINE POSITIVE (Neg); OCCULT BLOOD,URINE SMALL (Neg); PH,URINE 5.5 (4.8-8.0); PROTEIN,URINE TRACE mg/dl (Neg); UROBILINOGEN,URINE 0.2 E.U/dL (0.2-1.0)
[2018-11-07 20:18] LABS: UA COLLECTION TYPE CLN CATCH MIDSTREAM
[2018-11-07 20:25] LABS: BACTERIA,URINE 3+ /HPF (Neg); WBC,URINE TNTC /HPF (0-4)
[2018-11-07 20:26] LABS: MUCUS STRANDS NONE SEEN /LPF (Neg); SQUAMOUS EPITHELIAL CELL,UR NONE SEEN /LPF (FEW)
[2018-11-07 20:34] LABS: BASOPHILS # (AUTO) 0.1 X10'3 (0-0.2); BASOPHILS % (AUTO) 1.4 % (0-1); EOSINOPHILS # (AUTO) 0.3 X10'3 (0-0.9); EOSINOPHILS % (AUTO) 3.5 % (0-6); HEMATOCRIT 27.1 % (35.0-45.0); LYMPHOCYTES # (AUTO) 2.1 X10'3 (1.1-4.8); LYMPHOCYTES % (AUTO) 27.4 % (21-51); MEAN CORPUSCULAR HEMOGLOBIN 30.8 PG (27.0-31.0); MEAN CORPUSCULAR HGB CONC 33.2 g/dL (33.0-36.5); MEAN CORPUSCULAR VOLUME 92.8 FL (78-98); MEAN PLATELET VOLUME 7.6 FL (7.4-10.4); MONOCYTES # (AUTO) 0.8 X10'3 (0-0.9); MONOCYTES % (AUTO) 10.8 % (2-12); NEUTROPHILS # (AUTO) 4.3 X10'3 (1.8-7.7); NEUTROPHILS % (AUTO) 56.9 % (42-75); PLATELET COUNT 253 X10'3 (140-440); RED BLOOD COUNT 2.92 X10'6 (4.20-5.60); RED CELL DISTRIBUTION WIDTH 14.4 % (11.5-14.5); WHITE BLOOD COUNT 7.6 X10'3 (4.5-11.0)
[2018-11-07] MEDS ORDERED: CefTRIAXone 2gm/D5W 50ml 50 ML IV ONE (20:45)
[2018-11-07 20:51] LABS: ALANINE AMINOTRANSFERASE 19 U/L (12-78); ALBUMIN 3.7 G/DL (3.4-5.0); ALBUMIN/GLOBULIN RATIO 0.8 (1.1-1.5); ALKALINE PHOSPHATASE 54 IU/L (46-116); ANION GAP 12 (8-16); ASPARTATE AMINO TRANSFERASE 18 U/L (10-37); BILIRUBIN,TOTAL 0.3 MG/DL (0.1-1.0); BLOOD UREA NITROGEN 49 MG/DL (7-18); BUN/CREATININE RATIO 18.9 (6.6-38.0); CALCIUM 9.3 MG/DL (8.5-10.1); CHLORIDE 95 MMOL/L (99-107); CREATININE 2.59 MG/DL (0.40-0.90); GLUCOSE 89 MG/DL (70-104); POTASSIUM 4.8 MMOL/L (3.5-5.1); SODIUM 130 MMOL/L (135-145); TOTAL CARBON DIOXIDE 22.9 MMOL/L (24-32); TOTAL PROTEIN 8.5 G/DL (6.4-8.2); eGFR 18 ML/MIN
[2018-11-07] MEDS ORDERED: magnesium 4gm in 100ml NS 100 ML IV PRN (21:10)
[2018-11-07] MEDS ORDERED: acetaminophen 325mg tablet PO PRN ×2 (21:10)
[2018-11-07] MEDS ORDERED: magnesium Cl slow-release 64mg tablet PO PRN (21:10)
[2018-11-07] MEDS ORDERED: potassium Cl 20 mEq SR tablet PO PRN ×2 (21:10)
[2018-11-07] MEDS ORDERED: potassium CL 10mEq/100ml bag 100 ML IV PRN ×2 (21:10)
[2018-11-07] MEDS ORDERED: magnesium hydroxide 30ml (MOM) UD suspension PO PRN (21:10)
[2018-11-07] MEDS ORDERED: mag hydrox/Alum hydrox/simeth 30ml oral suspension PO PRN (21:10)
[2018-11-07] MEDS ORDERED: magnesium 2GM in 50ml NS 50 ML IV PRN (21:10)
[2018-11-07] MEDS ORDERED: ondansetron/PF 4mg/2ml inj IV PRN (21:10)
--- NOTE | 2018-11-07 21:15 | NUR ---
DAUGHTER, KYLIE PINEDA, CELL # [phone].SHE HAS BEEN AT BEDSIDE AND IS THE ONE WHO BROUGHT HER HERE. SHE IS LEAVING NOW. PRIMARY CONTACT IS NELLIE PINEDA, HOME # [phone], CELL [phone]. NELLIE HAS BEEN LEFT A MESSAGE OF THE PLAN FOR ADMISSION. AWAITING NELLIE TO CALL BACK TO PROVIDE THE PTS MED REC PT IS UNAWARE OF HER CURRENT MEDS.
[2018-11-07] MEDS ORDERED: LEVO15TA5 PO (21:19)
[2018-11-07] MEDS ORDERED: UNABLE TO OBTAIN (21:20)
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
[2018-11-07] MEDS: normal saline 1000ml 1,000 ML IV SCH (21:29)
--- NOTE | 2018-11-07 22:09 | NUR ---
Patient in room RACHELLE 359. I have received report from SURY BARBOSA and had the opportunity to ask questions and assume patient care. Addendum: 11/07/18 at 2209 by Vilma Gomez RN Amended: Links added.
--- NOTE | 2018-11-07 22:10 | NUR ---
RECIEVED PT ON THE FLOOR. ON ARRIVAL PT STATED SHE WAS INC OF URINE. USED SLIDE BOARD TO GET HER INTO BED TRANSFERRED WITH 4 PEOPLE THEN TURNED SKIN CARE DONE AND PT TOLERATED WELL. AFTER DOING THIS WICC PUT IN PLACE.
[2018-11-07] MEDS: cloNIDine 0.1 mg tablet PO SCH (22:42)
[2018-11-07] MEDS: hydrALAZINE 25 MG tablet PO SCH (22:43)
--- NOTE | 2018-11-07 23:10 | NUR ---
PAGE OUT TO HOSPITALIST FOR PT. HER DAUGHTER DID NOT BRING LIST OF HER HOME MEDS IN WITH HER OR HER CPAP MACHINE. PT STATED SHE TAKES MELATONIN AT NIGHT AND CLONAZEPAM AND WOULD LIKE IT.
[2018-11-07 23:15] VITALS: BP 189/66
--- NOTE | 2018-11-07 23:27 | NUR ---
OBTAINED ORDERS FOR HER HS MEDS SHE TAKES.
--- NOTE | 2018-11-08 00:34 | NUR ---
resting eyes closed without s&s of distress at this time.
--- NOTE | 2018-11-08 00:44 | NUR ---
medicated earlier for the elevated bp Addendum: 11/08/18 at 0045 by Vilma Gomez RN Amended: Links added.
[2018-11-08] MEDS: normal saline 1000ml 1,000 ML IV SCH ×2 (01:51→12:59)
--- NOTE | 2018-11-08 02:40 | NUR ---
resting eyes closed without changes.
--- NOTE | 2018-11-08 04:25 | NUR ---
pt inc of urine and wicc filled canister. skin care done and liens changed. pt positioned to comfort. states feeling better now.
--- NOTE | 2018-11-08 05:31 | NUR ---
pt resting eyes closed without changes.
--- NOTE | 2018-11-08 06:04 | NUR ---
Problems reprioritized. Patient report given, questions answered & plan of care reviewed with Flory Diaz.
[2018-11-08 06:07] LABS: BASOPHILS # (AUTO) 0.1 X10'3 (0-0.2); BASOPHILS % (AUTO) 1.4 % (0-1); EOSINOPHILS # (AUTO) 0.3 X10'3 (0-0.9); EOSINOPHILS % (AUTO) 5.9 % (0-6); HEMATOCRIT 25.3 % (35.0-45.0); HEMOGLOBIN 8.6 g/dl (12.0-16.0); LYMPHOCYTES # (AUTO) 1.8 X10'3 (1.1-4.8); LYMPHOCYTES % (AUTO) 30.4 % (21-51); MEAN CORPUSCULAR HEMOGLOBIN 31.4 PG (27.0-31.0); MEAN CORPUSCULAR HGB CONC 33.9 g/dL (33.0-36.5); MEAN CORPUSCULAR VOLUME 92.6 FL (78-98); MEAN PLATELET VOLUME 7.8 FL (7.4-10.4); MONOCYTES # (AUTO) 0.6 X10'3 (0-0.9); MONOCYTES % (AUTO) 10.8 % (2-12); NEUTROPHILS % (AUTO) 51.5 % (42-75); PLATELET COUNT 236 X10'3 (140-440); RED BLOOD COUNT 2.73 X10'6 (4.20-5.60); RED CELL DISTRIBUTION WIDTH 14.2 % (11.5-14.5); WHITE BLOOD COUNT 5.9 X10'3 (4.5-11.0)
[2018-11-08 06:13] LABS: ANION GAP 10 (8-16); BLOOD UREA NITROGEN 43 MG/DL (7-18); CALCIUM 8.3 MG/DL (8.5-10.1); CHLORIDE 104 MMOL/L (99-107); CREATININE 2.05 MG/DL (0.40-0.90); GLUCOSE 86 MG/DL (70-104); MAGNESIUM 1.8 MG/DL (1.5-2.4); POTASSIUM 4.3 MMOL/L (3.5-5.1); SODIUM 137 MMOL/L (135-145); TOTAL CARBON DIOXIDE 22.9 MMOL/L (24-32); eGFR 23 ML/MIN
[2018-11-08] MEDS: K and/or MAG REPLACEMENT MC SCH (06:47)
[2018-11-08 07:00] VITALS: BP 202/72
[2018-11-08] MEDS ORDERED: LOSA50TA3 PO (07:09)
[2018-11-08] MEDS ORDERED: FURO-149 PO (07:10)
[2018-11-08] MEDS ORDERED: VALS1TAB75 PO (07:11)
[2018-11-08] MEDS ORDERED: VALS1TAB77 PO (07:11)
[2018-11-08] MEDS ORDERED: DILT90TA22 PO (07:13)
[2018-11-08] MEDS ORDERED: CLOP75TA33 PO (07:48)
[2018-11-08] MEDS ORDERED: ATOR20TA66 PO (07:48)
[2018-11-08] MEDS: cloNIDine 0.1 mg tablet PO SCH ×2 (07:49→20:27)
[2018-11-08] MEDS: hydrALAZINE 25 MG tablet PO SCH ×3 (07:49→20:22)
[2018-11-08] MEDS: lactobacillus rhamnosus 10,000 MMU CELLS/CAPSULE PO SCH ×2 (07:49→20:22)
[2018-11-08] MEDS: heparin, porcine 5000 units/ml vial SQ SCH ×2 (07:50→20:37)
[2018-11-08] MEDS ORDERED: AMLO10TA13 PO (07:51)
[2018-11-08] MEDS ORDERED: CARSR60C PO (07:51)
[2018-11-08] MEDS ORDERED: DILT90CA PO (07:52)
[2018-11-08] MEDS ORDERED: POTA8TAB8 PO (07:54)
[2018-11-08 11:50] VITALS: BP 166/63
[2018-11-08] MEDS ORDERED: cloNIDine 0.1 mg tablet PO ONE (13:50)
[2018-11-08 14:00] VITALS: BP 163/61
[2018-11-08] MEDS ORDERED: hydrALAZINE 25 MG tablet PO SCH (16:00)
--- NOTE | 2018-11-08 18:38 | NUR ---
Patient in room RACHELLE 359. I have received report from CHELSEY Ruth and had the opportunity to ask questions and assume patient care.
--- NOTE | 2018-11-08 18:48 | NUR ---
Problems reprioritized. Patient report given, questions answered & plan of care reviewed with MONA RN.
[2018-11-08 20:00] VITALS: BP 207/77
[2018-11-08] MEDS ORDERED: cloNIDine 0.1 mg tablet PO SCH (20:00)
[2018-11-08] MEDS ORDERED: HYDROCHLOROTHIAZIDE PO SCH (20:00)
[2018-11-08] MEDS ORDERED: non-formulary drug (Diltiazem HCl (Diltiazem ER) 1 CAP) PO SCH (20:00)
[2018-11-08] MEDS ORDERED: VALSARTAN PO SCH (20:00)
[2018-11-08] MEDS: DILTIAZEM 90 MG PO SCH (20:00)
[2018-11-08] MEDS ORDERED: lactobacillus rhamnosus 10,000 MMU CELLS/CAPSULE PO SCH (20:00)
[2018-11-08] MEDS ORDERED: [UNRECOGNIZED DRUG - OTHER] PO SCH (20:00)
[2018-11-08] MEDS: CefTRIAXone 2gm/D5W 50ml 50 ML IV SCH (20:15)
[2018-11-08] MEDS: HYDROchlorothiazide 25mg tablet PO SCH (20:22)
[2018-11-08] MEDS: aspirin 81mg tablet.DR PO SCH (20:28)
[2018-11-08] MEDS: clonazePAM 0.5mg tablet PO SCH (20:28)
[2018-11-08] MEDS: Melatonin 3mg tablet PO SCH (20:28)
[2018-11-08] MEDS: losartan 50mg tablet PO SCH (20:30)
[2018-11-08] MEDS ORDERED: non-formulary drug (Aspirin (Aspir 81) 1 TAB) PO SCH (21:00)
[2018-11-08] MEDS ORDERED: clonazePAM 0.5mg tablet PO SCH (21:00)
[2018-11-08] MEDS ORDERED: non-formulary drug (Clonazepam 1 TAB) PO SCH (21:00)
[2018-11-08] MEDS: hydrALAZINE 20mg/ml inj. IV PRN (21:36)
[2018-11-09] VITALS (7 sets, daily range): BP systolic 123–221; BP diastolic 65–91
[2018-11-09] MEDS: normal saline 1000ml 1,000 ML IV SCH ×2 (03:09→15:58)
[2018-11-09 05:31] LABS: BASOPHILS # (AUTO) 0.1 X10'3 (0-0.2); EOSINOPHILS # (AUTO) 0.4 X10'3 (0-0.9); EOSINOPHILS % (AUTO) 6.3 % (0-6); HEMATOCRIT 25.6 % (35.0-45.0); HEMOGLOBIN 8.6 g/dl (12.0-16.0); LYMPHOCYTES # (AUTO) 1.8 X10'3 (1.1-4.8); LYMPHOCYTES % (AUTO) 30.4 % (21-51); MEAN CORPUSCULAR HEMOGLOBIN 31.1 PG (27.0-31.0); MEAN CORPUSCULAR HGB CONC 33.6 g/dL (33.0-36.5); MEAN CORPUSCULAR VOLUME 92.5 FL (78-98); MEAN PLATELET VOLUME 7.5 FL (7.4-10.4); MONOCYTES # (AUTO) 0.6 X10'3 (0-0.9); MONOCYTES % (AUTO) 10.3 % (2-12); NEUTROPHILS # (AUTO) 3.1 X10'3 (1.8-7.7); PLATELET COUNT 254 X10'3 (140-440); RED BLOOD COUNT 2.76 X10'6 (4.20-5.60); WHITE BLOOD COUNT 6.1 X10'3 (4.5-11.0)
[2018-11-09 05:51] LABS: ALBUMIN 3.1 G/DL (3.4-5.0); ANION GAP 13 (8-16); BLOOD UREA NITROGEN 33 MG/DL (7-18); BUN/CREATININE RATIO 22.1 (6.6-38.0); CALCIUM 8.7 MG/DL (8.5-10.1); CHLORIDE 105 MMOL/L (99-107); CREATININE 1.49 MG/DL (0.40-0.90); GLUCOSE 81 MG/DL (70-104); MAGNESIUM 1.9 MG/DL (1.5-2.4); PHOSPHORUS 3.5 MG/DL (2.3-4.5); SODIUM 139 MMOL/L (135-145); TOTAL CARBON DIOXIDE 21.2 MMOL/L (24-32); eGFR 34 ML/MIN
--- NOTE | 2018-11-09 06:23 | NUR ---
Problems reprioritized. Patient report given, questions answered & plan of care reviewed with CHELSEY Landis.
[2018-11-09] MEDS ORDERED: VITAMIN D3 PO SCH (08:00)
[2018-11-09] MEDS ORDERED: LEVOMEFOLATE CALCIUM PO SCH (08:00)
[2018-11-09] MEDS: DILTIAZEM 90 MG PO SCH ×2 (08:00→20:25)
[2018-11-09] MEDS: K and/or MAG REPLACEMENT MC SCH (08:00)
[2018-11-09] MEDS ORDERED: non-formulary drug (Pantoprazole Sodium (Protonix) 40 MG) PO SCH (08:00)
[2018-11-09] MEDS ORDERED: CIT PO SCH (08:00)
[2018-11-09] MEDS: [UNRECOGNIZED DRUG - OTHER] PO SCH (08:00)
[2018-11-09] MEDS: LEVOMEFOLATE CALCIUM PO SCH (08:00)
[2018-11-09] MEDS ORDERED: CALCIUM CARB PO SCH (08:00)
[2018-11-09] MEDS ORDERED: non-formulary drug (Amlodipine Besylate 1 TAB) PO SCH (08:00)
[2018-11-09] MEDS ORDERED: non-formulary drug (Multivitamin (Daily Value) 1 TAB) PO SCH (08:00)
[2018-11-09] MEDS: losartan 50mg tablet PO SCH ×2 (08:13→20:22)
[2018-11-09] MEDS: calcium carbonate/vitamin D3 tablet PO SCH (08:13)
[2018-11-09] MEDS: HYDROchlorothiazide 25mg tablet PO SCH ×2 (08:13→20:21)
[2018-11-09] MEDS: cloNIDine 0.1 mg tablet PO SCH ×2 (08:13→20:22)
[2018-11-09] MEDS: amLODIPine 5mg tablet PO SCH ×2 (08:13→08:16)
[2018-11-09] MEDS: lactobacillus rhamnosus 10,000 MMU CELLS/CAPSULE PO SCH ×2 (08:15→20:21)
[2018-11-09] MEDS: furosemide 40mg tablet PO SCH (08:15)
[2018-11-09] MEDS: pantoprazole 40mg Tablet.DR PO SCH (08:15)
[2018-11-09] MEDS: hydrALAZINE 25 MG tablet PO SCH ×4 (08:15→20:22)
[2018-11-09] MEDS: multivitamins, therapeutics tablet PO SCH (08:16)
[2018-11-09] MEDS: atorvastatin 20mg tablet PO SCH (08:16)
[2018-11-09] MEDS: clopidogrel 75mg tablet PO SCH (08:16)
[2018-11-09] MEDS: heparin, porcine 5000 units/ml vial SQ SCH ×2 (08:17→20:23)
[2018-11-09] MEDS: hydrALAZINE 20mg/ml inj. IV PRN (09:34)
[2018-11-09] MEDS ORDERED: amLODIPine 5mg tablet PO SCH (10:20)
[2018-11-09] MEDS ORDERED: hydrALAZINE 25 MG tablet PO ONE (11:10)
--- NOTE | 2018-11-09 18:25 | NUR ---
Patient in room RACHELLE 359. I have received report from CHELSEY Landis and had the opportunity to ask questions and assume patient care.
[2018-11-09] MEDS: CefTRIAXone 2gm/D5W 50ml 50 ML IV SCH (20:20)
[2018-11-09] MEDS: Melatonin 3mg tablet PO SCH (20:21)
[2018-11-09] MEDS: aspirin 81mg tablet.DR PO SCH (20:22)
[2018-11-09] MEDS: clonazePAM 0.5mg tablet PO SCH (20:22)
[2018-11-10] VITALS: BP 152/70
[2018-11-10 05:53] LABS: HEMOGLOBIN 9.2 g/dl (12.0-16.0); LYMPHOCYTES # (AUTO) 1.7 X10'3 (1.1-4.8); LYMPHOCYTES % (AUTO) 27.8 % (21-51); WHITE BLOOD COUNT 6.1 X10'3 (4.5-11.0)
[2018-11-10 05:56] LABS: BASOPHILS # (AUTO) 0.2 X10'3 (0-0.2); BASOPHILS % (AUTO) 2.5 % (0-1); EOSINOPHILS # (AUTO) 0.3 X10'3 (0-0.9); EOSINOPHILS % (AUTO) 5.7 % (0-6); HEMATOCRIT 27.8 % (35.0-45.0); MEAN CORPUSCULAR HEMOGLOBIN 30.7 PG (27.0-31.0); MEAN CORPUSCULAR HGB CONC 33.2 g/dL (33.0-36.5); MEAN CORPUSCULAR VOLUME 92.4 FL (78-98); MONOCYTES # (AUTO) 0.7 X10'3 (0-0.9); NEUTROPHILS # (AUTO) 3.2 X10'3 (1.8-7.7); PLATELET COUNT 242 X10'3 (140-440); RED CELL DISTRIBUTION WIDTH 13.9 % (11.5-14.5)
--- NOTE | 2018-11-10 06:07 | NUR ---
Problems reprioritized. Patient report given, questions answered & plan of care reviewed with CHELSEY Long.
[2018-11-10 06:10] LABS: ALBUMIN 3.1 G/DL (3.4-5.0); ANION GAP 12 (8-16); BLOOD UREA NITROGEN 32 MG/DL (7-18); BUN/CREATININE RATIO 24.8 (6.6-38.0); CALCIUM 8.7 MG/DL (8.5-10.1); CHLORIDE 102 MMOL/L (99-107); CREATININE 1.29 MG/DL (0.40-0.90); GLUCOSE 80 MG/DL (70-104); MAGNESIUM 1.8 MG/DL (1.5-2.4); PHOSPHORUS 3.8 MG/DL (2.3-4.5); SODIUM 137 MMOL/L (135-145); TOTAL CARBON DIOXIDE 23.3 MMOL/L (24-32); eGFR 40 ML/MIN
[2018-11-10 07:00] VITALS: BP 222/100
--- NOTE | 2018-11-10 07:00 | NUR ---
Patient in room RACHELLE 359. I have received report from Michael BARBOSA and had the opportunity to ask questions and assume patient care.
[2018-11-10] MEDS: [UNRECOGNIZED DRUG - OTHER] PO SCH (07:21)
[2018-11-10] MEDS: LEVOMEFOLATE CALCIUM PO SCH (07:21)
[2018-11-10] MEDS: multivitamins, therapeutics tablet PO SCH (07:22)
[2018-11-10] MEDS: lactobacillus rhamnosus 10,000 MMU CELLS/CAPSULE PO SCH (07:22)
[2018-11-10] MEDS: pantoprazole 40mg Tablet.DR PO SCH (07:22)
[2018-11-10] MEDS: losartan 50mg tablet PO SCH (07:23)
[2018-11-10] MEDS: HYDROchlorothiazide 25mg tablet PO SCH (07:24)
[2018-11-10] MEDS: hydrALAZINE 25 MG tablet PO SCH ×2 (07:25→13:31)
[2018-11-10] MEDS: calcium carbonate/vitamin D3 tablet PO SCH (07:25)
[2018-11-10] MEDS: clopidogrel 75mg tablet PO SCH (07:26)
[2018-11-10] MEDS: atorvastatin 20mg tablet PO SCH (07:27)
[2018-11-10] MEDS: furosemide 40mg tablet PO SCH (07:27)
[2018-11-10] MEDS: heparin, porcine 5000 units/ml vial SQ SCH (07:34)
[2018-11-10] MEDS: cloNIDine 0.1 mg tablet PO SCH (07:54)
[2018-11-10] MEDS: amLODIPine 5mg tablet PO SCH (07:55)
[2018-11-10] MEDS: DILTIAZEM 90 MG PO SCH (07:56)
[2018-11-10] MEDS: K and/or MAG REPLACEMENT MC SCH (08:00)
[2018-11-10 11:00] VITALS: BP 112/51
[2018-11-10] MEDS: normal saline 1000ml 1,000 ML IV SCH (12:11)
[2018-11-10] MEDS ORDERED: CEFD300C3 PO (12:26)
[2018-11-10] MEDS ORDERED: MELA3TAB64 PO (12:26)
[2018-11-10] MEDS ORDERED: HYDR-4069 PO (12:26)
--- NOTE | 2018-11-10 15:30 | NUR ---
Patients discharge instructions reviewed with patient and patients deangelo Gao at bedside all questions answered. Patients medications were delivered bedside by daron. Patients home medications retrieved from our pharmacy and sent home with patient. Patients IV Dc'd cannula intact. Patient was dressed in her clothing and depends. Patient was taken to vehicle where grandson was waiting for her. Patient has all belongings.
== END 2018-11-10 15:46 | disposition home health service (06) | DRG 871 ==
LOC: ER 18:48 → SUR 3N 22:03 → CMPBEDREQ 11-08 19:35 → SUR 3N 11-10 10:05
PROVIDERS: ADMIT Hospitalist; ATTEND Family Medicine
DX: A41.9 Sepsis, unspecified organism (principal); N17.0 Acute kidney failure with tubular necrosis; N39.0 Urinary tract infection, site not specified; I69.351 Hemiplegia and hemiparesis following cerebral infarction affecting right dominant side; E86.0 Dehydration; B95.2 Enterococcus as the cause of diseases classified elsewhere; B96.20 Unspecified Escherichia coli [E. coli] as the cause of diseases classified elsewhere; D64.9 Anemia, unspecified; I12.9 Hypertensive chronic kidney disease with stage 1 through stage 4 chronic kidney disease, or unspecified chronic kidney disease; N18.9 Chronic kidney disease, unspecified; B96.1 Klebsiella pneumoniae [K. pneumoniae] as the cause of diseases classified elsewhere; Z88.0 Allergy status to penicillin; Z88.2 Allergy status to sulfonamides; Z88.6 Allergy status to analgesic agent; Z88.8 Allergy status to other drugs, medicaments and biological substances; Z79.82 Long term (current) use of aspirin; Z79.899 Other long term (current) drug therapy; Z90.49 Acquired absence of other specified parts of digestive tract; Z90.710 Acquired absence of both cervix and uterus; Z85.41 Personal history of malignant neoplasm of cervix uteri; Z87.440 Personal history of urinary (tract) infections; Z82.49 Family history of ischemic heart disease and other diseases of the circulatory system
CPT/HCPCS: 36415; 80048; 80053; 81001; 82948; 83605; 83735; 84100; 84145; 85025; 85610; 87040; 87077; 87081; 87088; 87186; 96361; 96365; 97110; 97116; 97161; 99285; G0378; J0360; J0696; J1644; J7030

== ENCOUNTER 2018-12-21 14:17 | Outpatient (CLI) | payer MEDICARE, BC ==
[~2018-12-21 14:17] MED LIST changes: -CEPH500C5 PO; +CLOP75TA33 PO; -CLOP75TA35 PO; +DILT90CA PO; +FURO-149 PO; +MELA3TAB64 PO; +POTA8TAB8 PO; +VALS1TAB75 PO; +VALS1TAB77 PO
== END 2018-12-21 23:59 | disposition home or self-care (01) ==
LOC: RAD 14:17
DX: I12.9 Hypertensive chronic kidney disease with stage 1 through stage 4 chronic kidney disease, or unspecified chronic kidney disease (principal); N18.4 Chronic kidney disease, stage 4 (severe)
CPT/HCPCS: 76857

== ENCOUNTER 2019-01-10 20:39 | Inpatient (IN) | payer MEDICARE, BC ==
[~2019-01-10] VITALS: Ht 160 cm; Wt 65.9 kg
[2019-01-10 21:04] LABS: BASOPHILS # (AUTO) 0.1 X10'3 (0-0.2); BASOPHILS % (AUTO) 1.9 % (0-1); EOSINOPHILS # (AUTO) 0.2 X10'3 (0-0.9); EOSINOPHILS % (AUTO) 3.2 % (0-6); HEMATOCRIT 28.4 % (35.0-45.0); LYMPHOCYTES # (AUTO) 1.5 X10'3 (1.1-4.8); LYMPHOCYTES % (AUTO) 30.2 % (21-51); MEAN CORPUSCULAR HEMOGLOBIN 31.9 PG (27.0-31.0); MEAN CORPUSCULAR HGB CONC 35.2 g/dL (33.0-36.5); MEAN CORPUSCULAR VOLUME 90.6 FL (78-98); MEAN PLATELET VOLUME 7.1 FL (7.4-10.4); MONOCYTES # (AUTO) 0.7 X10'3 (0-0.9); MONOCYTES % (AUTO) 14.3 % (2-12); NEUTROPHILS # (AUTO) 2.5 X10'3 (1.8-7.7); NEUTROPHILS % (AUTO) 50.4 % (42-75); PLATELET COUNT 242 X10'3 (140-440); RED BLOOD COUNT 3.13 X10'6 (4.20-5.60); RED CELL DISTRIBUTION WIDTH 14.5 % (11.5-14.5); WHITE BLOOD COUNT 4.9 X10'3 (4.5-11.0)
[2019-01-10 21:13] LABS: PARTIAL THROMBOPLASTIN TIME 29 SECONDS (22-32)
[2019-01-10 21:26] LABS: ALANINE AMINOTRANSFERASE 16 U/L (12-78); ALBUMIN 3.6 G/DL (3.4-5.0); ALBUMIN/GLOBULIN RATIO 0.8 (1.1-1.5); ALKALINE PHOSPHATASE 48 IU/L (46-116); ANION GAP 9 (8-16); ASPARTATE AMINO TRANSFERASE 21 U/L (10-37); BILIRUBIN,TOTAL 0.3 MG/DL (0.1-1.0); BLOOD UREA NITROGEN 22 MG/DL (7-18); BUN/CREATININE RATIO 13.2 (6.6-38.0); CALCIUM 8.7 MG/DL (8.5-10.1); CHLORIDE 85 MMOL/L (99-107); CREATININE 1.67 MG/DL (0.40-0.90); GLUCOSE 100 MG/DL (70-104); MAGNESIUM 1.8 MG/DL (1.5-2.4); POTASSIUM 4.6 MMOL/L (3.5-5.1); TOTAL CARBON DIOXIDE 24.9 MMOL/L (24-32); TOTAL PROTEIN 8.1 G/DL (6.4-8.2); eGFR 29 ML/MIN
[2019-01-10 21:30] LABS: SODIUM 119 MMOL/L (135-145)
[2019-01-10] MEDS ORDERED: CLON0.2T PO (21:58)
[2019-01-10] MEDS ORDERED: HYDR-4069 PO (22:02)
[2019-01-10] MEDS ORDERED: LOSA50TA64 PO (22:03)
[2019-01-10 22:18] LABS: ALBUMIN 3.5 G/DL (3.4-5.0); ANION GAP 6 (8-16); BLOOD UREA NITROGEN 22 MG/DL (7-18); BUN/CREATININE RATIO 13.5 (6.6-38.0); CALCIUM 8.5 MG/DL (8.5-10.1); CHLORIDE 86 MMOL/L (99-107); CREATININE 1.63 MG/DL (0.40-0.90); GLUCOSE 95 MG/DL (70-104); POTASSIUM 4.3 MMOL/L (3.5-5.1); TOTAL CARBON DIOXIDE 27.5 MMOL/L (24-32); eGFR 30 ML/MIN
[2019-01-10 22:32] LABS: SODIUM 119 MMOL/L (135-145)
[2019-01-10] MEDS ORDERED: hydrALAZINE 25 MG tablet PO ONE (23:20)
[2019-01-11] VITALS (9 sets, daily range): BP systolic 162–211; BP diastolic 70–98
[2019-01-11] MEDS ORDERED: mag hydrox/Alum hydrox/simeth 30ml oral suspension PO PRN
[2019-01-11] MEDS ORDERED: ondansetron/PF 4mg/2ml inj IV PRN
[2019-01-11] MEDS ORDERED: magnesium hydroxide 30ml (MOM) UD suspension PO PRN
[2019-01-11] MEDS ORDERED: acetaminophen 325mg tablet PO PRN ×2
--- NOTE | 2019-01-11 00:20 | NUR ---
recieved pt report from Stephanie BARBOSA ER, had the oportunity to ask questions, stated that pt has had SBP in the 180s-190s and DBP in the 110s in the ER, MD is aware and this is slightly higher than her normal. These bp are not to be worried about. she was in the mid 200s ealier in the day. awaiting pt on unit
--- NOTE | 2019-01-11 00:40 | NUR ---
pt arrived on unit with all belongings via gabo, VS stable, tele attached, pt oriented to room and unit, call light in reach, will continue to monitor.
[2019-01-11 01:08] LABS: CLARITY,URINE CLEAR (Clear); COLOR,URINE YELLOW (Yellow); GLUCOSE, URINE NEGATIVE (Neg); KETONES,URINE NEGATIVE (Neg); LEUKOCYTE ESTERASE ,URINE SMALL (Neg); NITRITES, URINE NEGATIVE (Neg); OCCULT BLOOD,URINE NEGATIVE (Neg); PROTEIN,URINE NEGATIVE (Neg); UROBILINOGEN,URINE 0.2 E.U/dL (0.2-1.0)
[2019-01-11 01:11] LABS: UA COLLECTION TYPE STRAIGHT CATH
[2019-01-11 01:18] LABS: RBC,URINE 0-2 /HPF (0-2)
[2019-01-11 01:19] LABS: AMORPHOUS PHOSPHATES 2+; BACTERIA,URINE 3+ /HPF (Neg); SQUAMOUS EPITHELIAL CELL,UR FEW /LPF (FEW)
[2019-01-11] MEDS ORDERED: hydrALAZINE 20mg/ml inj. IV ONE (02:30)
[2019-01-11 03:39] LABS: BASOPHILS # (AUTO) 0.1 X10'3 (0-0.2); BASOPHILS % (AUTO) 1.5 % (0-1); EOSINOPHILS # (AUTO) 0.2 X10'3 (0-0.9); EOSINOPHILS % (AUTO) 4.3 % (0-6); HEMATOCRIT 29.2 % (35.0-45.0); LYMPHOCYTES # (AUTO) 1.6 X10'3 (1.1-4.8); LYMPHOCYTES % (AUTO) 31.9 % (21-51); MEAN CORPUSCULAR HEMOGLOBIN 31.1 PG (27.0-31.0); MEAN CORPUSCULAR HGB CONC 34.3 g/dL (33.0-36.5); MEAN CORPUSCULAR VOLUME 90.5 FL (78-98); MEAN PLATELET VOLUME 7.1 FL (7.4-10.4); MONOCYTES # (AUTO) 0.6 X10'3 (0-0.9); MONOCYTES % (AUTO) 12.5 % (2-12); NEUTROPHILS # (AUTO) 2.5 X10'3 (1.8-7.7); NEUTROPHILS % (AUTO) 49.8 % (42-75); PLATELET COUNT 222 X10'3 (140-440); RED BLOOD COUNT 3.23 X10'6 (4.20-5.60)
[2019-01-11 03:51] LABS: ALBUMIN 3.5 G/DL (3.4-5.0); ANION GAP 9 (8-16); BLOOD UREA NITROGEN 22 MG/DL (7-18); BUN/CREATININE RATIO 13.9 (6.6-38.0); CALCIUM 8.8 MG/DL (8.5-10.1); CHLORIDE 88 MMOL/L (99-107); CREATININE 1.58 MG/DL (0.40-0.90); GLUCOSE 90 MG/DL (70-104); SODIUM 121 MMOL/L (135-145); TOTAL CARBON DIOXIDE 23.6 MMOL/L (24-32); eGFR 31 ML/MIN
--- NOTE | 2019-01-11 06:15 | NUR ---
Patient in room PCU 3024. I have received report from CHELSEY Ceballos and had the opportunity to ask questions and assume patient care.
--- NOTE | 2019-01-11 06:30 | NUR ---
Problems reprioritized. Patient report given, questions answered & plan of care reviewed with Jo-Ann Gonzalez RN.
[2019-01-11] MEDS: LEVOMEFOLATE CALCIUM 15 MG PO SCH (08:00)
[2019-01-11] MEDS ORDERED: furosemide 40mg tablet PO SCH (08:00)
[2019-01-11] MEDS: cloNIDine 0.1 mg tablet PO SCH ×2 (08:21→20:49)
[2019-01-11] MEDS: calcium carbonate/vitamin D3 tablet PO SCH (08:21)
[2019-01-11] MEDS: pantoprazole 40mg Tablet.DR PO SCH (08:21)
[2019-01-11] MEDS: losartan 50mg tablet PO SCH (08:21)
[2019-01-11] MEDS: amLODIPine 5mg tablet PO SCH (08:21)
[2019-01-11] MEDS: multivitamins, therapeutics tablet PO SCH (08:21)
[2019-01-11] MEDS: atorvastatin 20mg tablet PO SCH (08:22)
[2019-01-11] MEDS: hydrALAZINE 25 MG tablet PO SCH ×4 (08:22→20:50)
[2019-01-11] MEDS: clopidogrel 75mg tablet PO SCH (08:23)
[2019-01-11] MEDS: enoxaparin 30mg/0.3ml syringe SUBCUT SCH (08:25)
[2019-01-11] MEDS: furosemide 20 MG/2 ML vial IV SCH ×2 (08:41→20:49)
[2019-01-11 13:15] LABS: ALBUMIN 3.8 G/DL (3.4-5.0); ANION GAP 10 (8-16); BLOOD UREA NITROGEN 23 MG/DL (7-18); BUN/CREATININE RATIO 12.4 (6.6-38.0); CALCIUM 9.2 MG/DL (8.5-10.1); CHLORIDE 92 MMOL/L (99-107); CREATININE 1.85 MG/DL (0.40-0.90); GLUCOSE 88 MG/DL (70-104); POTASSIUM 4.7 MMOL/L (3.5-5.1); SODIUM 126 MMOL/L (135-145); TOTAL CARBON DIOXIDE 23.9 MMOL/L (24-32); eGFR 26 ML/MIN
[2019-01-11] MEDS ORDERED: tuberculin, purif. prot. deriv. 5 units/0.1ml ID ONE (17:15)
--- NOTE | 2019-01-11 18:34 | NUR ---
Problems reprioritized. Patient report given, questions answered & plan of care reviewed with Tucker RN.
--- NOTE | 2019-01-11 18:45 | NUR ---
Patient in room PCU 3024. I have received report from Jo-Ann Gonzalez RN and had the opportunity to ask questions and assume patient care.
[2019-01-11] MEDS: clonazePAM 0.5mg tablet PO SCH (20:49)
[2019-01-11] MEDS: aspirin 81mg tablet.DR PO SCH (20:49)
[2019-01-12 00:08] LABS: ALBUMIN 3.5 G/DL (3.4-5.0); ANION GAP 9 (8-16); BLOOD UREA NITROGEN 27 MG/DL (7-18); CALCIUM 8.9 MG/DL (8.5-10.1); CHLORIDE 94 MMOL/L (99-107); GLUCOSE 99 MG/DL (70-104); POTASSIUM 4.4 MMOL/L (3.5-5.1); SODIUM 127 MMOL/L (135-145); TOTAL CARBON DIOXIDE 23.7 MMOL/L (24-32); eGFR 27 ML/MIN
[2019-01-12 03:00] VITALS: BP 164/76
[2019-01-12 03:12] LABS: ALBUMIN 3.6 G/DL (3.4-5.0); ANION GAP 10 (8-16); BLOOD UREA NITROGEN 26 MG/DL (7-18); BUN/CREATININE RATIO 13.9 (6.6-38.0); CALCIUM 9.4 MG/DL (8.5-10.1); CHLORIDE 92 MMOL/L (99-107); CREATININE 1.87 MG/DL (0.40-0.90); GLUCOSE 90 MG/DL (70-104); POTASSIUM 4.2 MMOL/L (3.5-5.1); SODIUM 126 MMOL/L (135-145); TOTAL CARBON DIOXIDE 24.3 MMOL/L (24-32); eGFR 26 ML/MIN
[2019-01-12 04:42] LABS: BASOPHILS # (AUTO) 0.1 X10'3 (0-0.2); BASOPHILS % (AUTO) 1.4 % (0-1); EOSINOPHILS # (AUTO) 0.2 X10'3 (0-0.9); HEMATOCRIT 30.2 % (35.0-45.0); HEMOGLOBIN 10.3 g/dl (12.0-16.0); LYMPHOCYTES # (AUTO) 1.2 X10'3 (1.1-4.8); LYMPHOCYTES % (AUTO) 21.4 % (21-51); MEAN CORPUSCULAR HEMOGLOBIN 31.5 PG (27.0-31.0); MEAN CORPUSCULAR HGB CONC 34.2 g/dL (33.0-36.5); MEAN CORPUSCULAR VOLUME 92.1 FL (78-98); MEAN PLATELET VOLUME 7.5 FL (7.4-10.4); MONOCYTES # (AUTO) 0.8 X10'3 (0-0.9); MONOCYTES % (AUTO) 14.1 % (2-12); NEUTROPHILS # (AUTO) 3.2 X10'3 (1.8-7.7); NEUTROPHILS % (AUTO) 59.1 % (42-75); PLATELET COUNT 234 X10'3 (140-440); RED BLOOD COUNT 3.27 X10'6 (4.20-5.60); WHITE BLOOD COUNT 5.5 X10'3 (4.5-11.0)
[2019-01-12 06:00] VITALS: BP 142/80
[2019-01-12] MEDS: pantoprazole 40mg Tablet.DR PO SCH (07:30)
[2019-01-12] MEDS: atorvastatin 20mg tablet PO SCH (07:45)
[2019-01-12] MEDS: clopidogrel 75mg tablet PO SCH (07:45)
[2019-01-12] MEDS: hydrALAZINE 25 MG tablet PO SCH ×4 (07:46→20:17)
[2019-01-12] MEDS: furosemide 20 MG/2 ML vial IV SCH ×2 (07:46→20:17)
[2019-01-12] MEDS: losartan 50mg tablet PO SCH (07:46)
[2019-01-12] MEDS: enoxaparin 30mg/0.3ml syringe SUBCUT SCH (07:47)
[2019-01-12] MEDS: LEVOMEFOLATE CALCIUM 15 MG PO SCH (08:00)
[2019-01-12] MEDS: amLODIPine 5mg tablet PO SCH (08:00)
[2019-01-12] MEDS: multivitamins, therapeutics tablet PO SCH (08:00)
[2019-01-12] MEDS: calcium carbonate/vitamin D3 tablet PO SCH (08:00)
[2019-01-12] MEDS: cloNIDine 0.1 mg tablet PO SCH ×2 (08:10→16:20)
[2019-01-12 09:36] LABS: ALBUMIN 3.5 G/DL (3.4-5.0); ANION GAP 10 (8-16); BLOOD UREA NITROGEN 29 MG/DL (7-18); BUN/CREATININE RATIO 16.1 (6.6-38.0); CALCIUM 8.8 MG/DL (8.5-10.1); CHLORIDE 94 MMOL/L (99-107); GLUCOSE 87 MG/DL (70-104); POTASSIUM 4.1 MMOL/L (3.5-5.1); SODIUM 128 MMOL/L (135-145); TOTAL CARBON DIOXIDE 23.8 MMOL/L (24-32); eGFR 27 ML/MIN
[2019-01-12 09:44] LABS: D-DIMER 0.83 MG/L FEU (0-0.50)
[2019-01-12 15:00] VITALS: BP 140/61
--- NOTE | 2019-01-12 18:34 | NUR ---
Patient in room PCU 3024. I have received report from Cuong BARBOSA and had the opportunity to ask questions and assume patient care.
[2019-01-12 19:00] VITALS: BP 140/70
--- NOTE | 2019-01-12 19:08 | NUR ---
Problems reprioritized. Patient report given, questions answered & plan of care reviewed with Tucker RN.
[2019-01-12] MEDS: clonazePAM 0.5mg tablet PO SCH (20:17)
[2019-01-12] MEDS: aspirin 81mg tablet.DR PO SCH (20:17)
[2019-01-12 23:00] VITALS: BP 132/80
[2019-01-13 00:09] LABS: ALBUMIN 3.5 G/DL (3.4-5.0); ANION GAP 9 (8-16); BLOOD UREA NITROGEN 34 MG/DL (7-18); BUN/CREATININE RATIO 17.4 (6.6-38.0); CHLORIDE 94 MMOL/L (99-107); CREATININE 1.95 MG/DL (0.40-0.90); GLUCOSE 91 MG/DL (70-104); POTASSIUM 4.3 MMOL/L (3.5-5.1); SODIUM 128 MMOL/L (135-145); TOTAL CARBON DIOXIDE 25.1 MMOL/L (24-32); eGFR 25 ML/MIN
[2019-01-13] MEDS: cloNIDine 0.1 mg tablet PO SCH ×2 (00:17→10:25)
[2019-01-13 03:00] VITALS: BP 151/64
[2019-01-13 05:30] LABS: BASOPHILS # (AUTO) 0.1 X10'3 (0-0.2); BASOPHILS % (AUTO) 1.6 % (0-1); EOSINOPHILS # (AUTO) 0.2 X10'3 (0-0.9); EOSINOPHILS % (AUTO) 4.3 % (0-6); HEMATOCRIT 28.9 % (35.0-45.0); HEMOGLOBIN 9.8 g/dl (12.0-16.0); LYMPHOCYTES # (AUTO) 1.5 X10'3 (1.1-4.8); LYMPHOCYTES % (AUTO) 26.6 % (21-51); MEAN CORPUSCULAR HEMOGLOBIN 31.2 PG (27.0-31.0); MEAN CORPUSCULAR HGB CONC 33.9 g/dL (33.0-36.5); MEAN CORPUSCULAR VOLUME 91.9 FL (78-98); MEAN PLATELET VOLUME 7.3 FL (7.4-10.4); MONOCYTES # (AUTO) 0.7 X10'3 (0-0.9); NEUTROPHILS % (AUTO) 54.5 % (42-75); PLATELET COUNT 245 X10'3 (140-440); RED BLOOD COUNT 3.14 X10'6 (4.20-5.60); RED CELL DISTRIBUTION WIDTH 14.9 % (11.5-14.5); WHITE BLOOD COUNT 5.5 X10'3 (4.5-11.0)
[2019-01-13 05:43] LABS: ALBUMIN 3.4 G/DL (3.4-5.0); ANION GAP 9 (8-16); BLOOD UREA NITROGEN 38 MG/DL (7-18); BUN/CREATININE RATIO 18.9 (6.6-38.0); CALCIUM 8.9 MG/DL (8.5-10.1); CHLORIDE 95 MMOL/L (99-107); CREATININE 2.01 MG/DL (0.40-0.90); GLUCOSE 86 MG/DL (70-104); POTASSIUM 4.4 MMOL/L (3.5-5.1); SODIUM 128 MMOL/L (135-145); TOTAL CARBON DIOXIDE 24.2 MMOL/L (24-32); eGFR 24 ML/MIN
[2019-01-13 06:00] VITALS: BP 120/60
--- NOTE | 2019-01-13 06:10 | NUR ---
Patient in room PCU 3024. I have received report from Tucker RN and had the opportunity to ask questions and assume patient care.
--- NOTE | 2019-01-13 06:21 | NUR ---
Problems reprioritized. Patient report given, questions answered & plan of care reviewed with Onofre BARBOSA.
[2019-01-13] MEDS: LEVOMEFOLATE CALCIUM 15 MG PO SCH (08:00)
[2019-01-13] MEDS: furosemide 20 MG/2 ML vial IV SCH (08:47)
[2019-01-13] MEDS: clopidogrel 75mg tablet PO SCH (08:47)
[2019-01-13] MEDS: pantoprazole 40mg Tablet.DR PO SCH (08:47)
[2019-01-13] MEDS: calcium carbonate/vitamin D3 tablet PO SCH (08:47)
[2019-01-13] MEDS: atorvastatin 20mg tablet PO SCH (08:48)
[2019-01-13] MEDS: multivitamins, therapeutics tablet PO SCH (08:48)
[2019-01-13] MEDS: losartan 50mg tablet PO SCH (08:55)
[2019-01-13] MEDS: hydrALAZINE 25 MG tablet PO SCH ×2 (08:55→12:52)
[2019-01-13] MEDS: enoxaparin 30mg/0.3ml syringe SUBCUT SCH (08:59)
[2019-01-13] MEDS: amLODIPine 5mg tablet PO SCH (10:25)
[2019-01-13 11:00] VITALS: BP 121/66
--- NOTE | 2019-01-13 11:49 | NUR ---
promotional table spacer PAGER ID: [phone] MESSAGE: RE: Hoda Jarquin. Room: 3024 A. Speech therapist recommends thickened liquids and mechanical chopped diet. -[facility] #[id number] Dr. Calero paged concerning swallow eval results.
[2019-01-13 12:38] LABS: ALBUMIN 3.5 G/DL (3.4-5.0); ANION GAP 11 (8-16); BLOOD UREA NITROGEN 38 MG/DL (7-18); BUN/CREATININE RATIO 19.9 (6.6-38.0); CALCIUM 8.6 MG/DL (8.5-10.1); CHLORIDE 96 MMOL/L (99-107); CREATININE 1.91 MG/DL (0.40-0.90); GLUCOSE 97 MG/DL (70-104); POTASSIUM 4.3 MMOL/L (3.5-5.1); SODIUM 132 MMOL/L (135-145); eGFR 25 ML/MIN
--- NOTE | 2019-01-13 13:00 | NUR ---
Pt DC'd home with son. IV removed, canula intact. Tele-box removed and returned to tele-tech. Pt stable and vitals WNL upon DC. DC paperwork and instructions gone over with Pt. Allowed Pt to ask questions concerning DC and then answer them. No new medications for Pt. Pt will make follow up appt with PCP, Dr. Chavez, post DC. Pt had PPD ID shot on 01/11/19 at 2300 during admission. Pt informed that she needs to have PPD read by a healthcare provider on 01/14/19. Pt stated that she will have her caregiver drive her into town to have PPD read at [facility] on 01/14/19. Pt's belongings gathered and sent with Pt. Pt wheeled down to lobby in wheelchair by nursing students where she left with son in private vehicle for home.
== END 2019-01-13 15:03 | disposition home or self-care (01) | DRG 291 ==
LOC: ER 20:39 → ED HOLD 01-11 00:06 → PCU 3S 01-11 00:40
PROVIDERS: ADMIT Hospitalist; ATTEND Internal Medicine
PROC: 5A09357 Assistance with Respiratory Ventilation, Less than 24 Consecutive Hours, Continuous Positive Airway Pressure (ICD-10-PCS; principal; 2019-01-12)
PROC: 5A09357 Assistance with Respiratory Ventilation, Less than 24 Consecutive Hours, Continuous Positive Airway Pressure (ICD-10-PCS; 2019-01-13)
DX: I13.0 Hypertensive heart and chronic kidney disease with heart failure and stage 1 through stage 4 chronic kidney disease, or unspecified chronic kidney disease (principal); I50.33 Acute on chronic diastolic (congestive) heart failure; E87.1 Hypo-osmolality and hyponatremia; N18.4 Chronic kidney disease, stage 4 (severe); E78.5 Hyperlipidemia, unspecified; G47.30 Sleep apnea, unspecified; Z60.2 Problems related to living alone; Z79.02 Long term (current) use of antithrombotics/antiplatelets; I69.391 Dysphagia following cerebral infarction; Z79.899 Other long term (current) drug therapy; Z85.41 Personal history of malignant neoplasm of cervix uteri; Z90.710 Acquired absence of both cervix and uterus; Z88.0 Allergy status to penicillin; Z88.2 Allergy status to sulfonamides; Z88.8 Allergy status to other drugs, medicaments and biological substances; Z90.49 Acquired absence of other specified parts of digestive tract; Z82.49 Family history of ischemic heart disease and other diseases of the circulatory system
CPT/HCPCS: 36415; 71046; 80048; 80053; 81001; 83735; 83880; 83930; 83935; 84484; 85025; 85379; 85610; 85730; 87081; 87088; 92508; 92616; 93306; 93970; 97110; 97116; 97162; 97530; 99285; G0378; J0360; J1650; J1940

== ENCOUNTER 2019-02-08 14:43 | Inpatient (IN) | payer MEDICARE, BC ==
[~2019-02-08] VITALS: Ht 160 cm; Wt 75.0 kg
[~2019-02-08 14:43] MED LIST changes: -CLON-529 PO; +CLON0.2T PO; -LACT1CAP26 PO; -LOSA50TA3 PO; -MELA3TAB64 PO; -VALS1TAB75 PO
[2019-02-08 15:32] LABS: CLARITY,URINE SLIGHTLY CLOUDY (Clear); COLOR,URINE YELLOW (Yellow); GLUCOSE, URINE NEGATIVE (Neg); KETONES,URINE NEGATIVE (Neg); LEUKOCYTE ESTERASE ,URINE LARGE (Neg); NITRITES, URINE NEGATIVE (Neg); OCCULT BLOOD,URINE NEGATIVE (Neg); PROTEIN,URINE NEGATIVE (Neg); UROBILINOGEN,URINE 0.2 E.U/dL (0.2-1.0)
[2019-02-08 15:36] LABS: UA COLLECTION TYPE STRAIGHT CATH
[2019-02-08 15:37] LABS: RBC,URINE NONE SEEN /HPF (0-2); WBC,URINE TNTC /HPF (0-4)
[2019-02-08 15:38] LABS: BACTERIA,URINE FEW /HPF (Neg); MUCUS STRANDS NONE SEEN /LPF (Neg); SQUAMOUS EPITHELIAL CELL,UR FEW /LPF (FEW)
[2019-02-08 15:54] LABS: BASOPHILS # (AUTO) 0.1 X10'3 (0-0.2); BASOPHILS % (AUTO) 1.9 % (0-1); EOSINOPHILS # (AUTO) 0.2 X10'3 (0-0.9); HEMATOCRIT 29.6 % (35.0-45.0); LYMPHOCYTES # (AUTO) 1.7 X10'3 (1.1-4.8); LYMPHOCYTES % (AUTO) 33.2 % (21-51); MEAN CORPUSCULAR HGB CONC 33.8 g/dL (33.0-36.5); MEAN CORPUSCULAR VOLUME 91.9 FL (78-98); MEAN PLATELET VOLUME 7.1 FL (7.4-10.4); MONOCYTES # (AUTO) 0.7 X10'3 (0-0.9); NEUTROPHILS # (AUTO) 2.4 X10'3 (1.8-7.7); NEUTROPHILS % (AUTO) 46.9 % (42-75); PLATELET COUNT 298 X10'3 (140-440); RED BLOOD COUNT 3.22 X10'6 (4.20-5.60); RED CELL DISTRIBUTION WIDTH 15.7 % (11.5-14.5); WHITE BLOOD COUNT 5.2 X10'3 (4.5-11.0)
[2019-02-08 16:10] LABS: ALANINE AMINOTRANSFERASE 18 U/L (12-78); ALBUMIN 3.9 G/DL (3.4-5.0); ALBUMIN/GLOBULIN RATIO 0.9 (1.1-1.5); ALKALINE PHOSPHATASE 50 IU/L (46-116); ANION GAP 12 (8-16); ASPARTATE AMINO TRANSFERASE 19 U/L (10-37); BILIRUBIN,TOTAL 0.3 MG/DL (0.1-1.0); BLOOD UREA NITROGEN 36 MG/DL (7-18); BUN/CREATININE RATIO 16.4 (6.6-38.0); CALCIUM 9.4 MG/DL (8.5-10.1); CHLORIDE 90 MMOL/L (99-107); GLUCOSE 97 MG/DL (70-104); POTASSIUM 5.1 MMOL/L (3.5-5.1); SODIUM 125 MMOL/L (135-145); TOTAL CARBON DIOXIDE 23.5 MMOL/L (24-32); TOTAL PROTEIN 8.2 G/DL (6.4-8.2); eGFR 21 ML/MIN
--- NOTE | 2019-02-08 17:21 | NUR ---
pt voided and cleaned up
[2019-02-08] MEDS ORDERED: normal saline 1000ML IV soln IVB ONE (17:35)
[2019-02-08] MEDS ORDERED: CefTRIAXone/D5W-Rocephin 1gm 50 ML IV ONE (17:35)
[2019-02-08] MEDS ORDERED: OCUVITE PO (17:47)
[2019-02-08] MEDS ORDERED: CLOP75TA35 PO (18:00)
[2019-02-08] MEDS ORDERED: ASPI-611 PO (18:00)
[2019-02-08] MEDS ORDERED: VALS160T30 PO (18:00)
[2019-02-08] MEDS ORDERED: PANT40TA4 PO (18:00)
[2019-02-08] MEDS ORDERED: LEVO15TA6 PO (18:00)
[2019-02-08] MEDS ORDERED: FERR270T PO (18:02)
[2019-02-08] MEDS ORDERED: DOCU-264 PO (18:03)
[2019-02-08] MEDS ORDERED: B1/B1TAB PO (18:06)
[2019-02-08] MEDS ORDERED: LACTC PO (18:06)
[2019-02-08] MEDS ORDERED: LACT1CAP65 PO (18:06)
[2019-02-08] MEDS ORDERED: FURO40TA4 PO (18:12)
[2019-02-08] MEDS ORDERED: CLON0.5T4 PO (18:14)
--- NOTE | 2019-02-08 18:55 | NUR ---
PATIENT HAD INCONTINENT VOID AT THIS TIME, PATIENT STATES SHE IS UNABLE TO HOLD HER URINE AND HYGIENE WAS PROVIDED, REPOSITIONED FOR COMFORT.
--- NOTE | 2019-02-08 19:37 | NUR ---
Patient resting comfortably in bed. IV in left wrist infiltrated and new 22g IV placed in left forearm. Patient updated on POC.
[2019-02-08] MEDS ORDERED: mag hydrox/Alum hydrox/simeth 30ml oral suspension PO PRN (19:55)
[2019-02-08] MEDS ORDERED: ondansetron/PF 4mg/2ml inj IV PRN (19:55)
[2019-02-08] MEDS ORDERED: magnesium hydroxide 30ml (MOM) UD suspension PO PRN (19:55)
[2019-02-08] MEDS ORDERED: acetaminophen 325mg tablet PO PRN (19:55)
[2019-02-08] MEDS ORDERED: non-formulary drug (Diltiazem HCl (Diltiazem ER) 1 CAP) PO SCH (20:00)
[2019-02-08] MEDS: normal saline 1000ml 1,000 ML IV SCH (20:15)
[2019-02-08] MEDS: heparin, porcine 5000 units/ml vial SQ SCH (20:15)
--- NOTE | 2019-02-08 20:21 | NUR ---
Spoke to Dr. Palma about patients blood pressure of 217/122. He requests to get her routine evening medications, which have not yet been verified by the pharmacy at this time, and than she is normally hypertensive. Patient denies any related symptoms at this time.
[2019-02-08] MEDS: cloNIDine 0.1 mg tablet PO SCH (22:09)
[2019-02-09] VITALS: BP 176/75
--- NOTE | 2019-02-09 00:38 | NUR ---
Patient in room RACHELLE 357. I have received report from Medhat in the ER and had the opportunity to ask questions and assume patient care. Pt arrived on the unit via gurney. Slide board was used for transfer as pt could not ambulate. Pt had no signs of distress. Will continue to monitor.
[2019-02-09 05:08] LABS: BASOPHILS # (AUTO) 0.1 X10'3 (0-0.2); BASOPHILS % (AUTO) 1.8 % (0-1); EOSINOPHILS # (AUTO) 0.2 X10'3 (0-0.9); HEMATOCRIT 27.5 % (35.0-45.0); HEMOGLOBIN 9.4 g/dl (12.0-16.0); LYMPHOCYTES # (AUTO) 1.3 X10'3 (1.1-4.8); LYMPHOCYTES % (AUTO) 26.1 % (21-51); MEAN CORPUSCULAR HEMOGLOBIN 31.5 PG (27.0-31.0); MEAN CORPUSCULAR HGB CONC 34.2 g/dL (33.0-36.5); MEAN PLATELET VOLUME 7.1 FL (7.4-10.4); MONOCYTES # (AUTO) 0.6 X10'3 (0-0.9); MONOCYTES % (AUTO) 12.5 % (2-12); NEUTROPHILS # (AUTO) 2.9 X10'3 (1.8-7.7); NEUTROPHILS % (AUTO) 55.6 % (42-75); PLATELET COUNT 261 X10'3 (140-440); RED BLOOD COUNT 2.99 X10'6 (4.20-5.60); RED CELL DISTRIBUTION WIDTH 15.4 % (11.5-14.5); WHITE BLOOD COUNT 5.1 X10'3 (4.5-11.0)
[2019-02-09 05:16] LABS: ALBUMIN 3.2 G/DL (3.4-5.0); ANION GAP 8 (8-16); BLOOD UREA NITROGEN 31 MG/DL (7-18); BUN/CREATININE RATIO 19.4 (6.6-38.0); CALCIUM 8.5 MG/DL (8.5-10.1); CHLORIDE 98 MMOL/L (99-107); GLUCOSE 87 MG/DL (70-104); POTASSIUM 4.6 MMOL/L (3.5-5.1); SODIUM 131 MMOL/L (135-145); TOTAL CARBON DIOXIDE 24.6 MMOL/L (24-32); eGFR 31 ML/MIN
--- NOTE | 2019-02-09 06:30 | NUR ---
Patient in room RACHELLE 357. I have received report from Vandana BARBOSA and had the opportunity to ask questions and assume patient care.
--- NOTE | 2019-02-09 06:37 | NUR ---
Problems reprioritized. Patient report given, questions answered & plan of care reviewed with Demarco RN.
--- NOTE | 2019-02-09 06:39 | NUR ---
Problems reprioritized. Patient report given, questions answered & plan of care reviewed with Demarco RN.
[2019-02-09 07:35] VITALS: BP 214/96
[2019-02-09] MEDS ORDERED: vitamin B comp w/Vit. C tab 1 TAB TABLET PO SCH (08:00)
[2019-02-09] MEDS ORDERED: losartan 50mg tablet PO SCH (08:00)
[2019-02-09] MEDS ORDERED: clopidogrel 75mg tablet PO SCH (08:00)
[2019-02-09] MEDS ORDERED: clonazePAM 0.5mg tablet PO SCH (08:00)
[2019-02-09] MEDS ORDERED: ferrous gluconate 324mg tablet PO SCH (08:00)
[2019-02-09] MEDS ORDERED: lactobacillus rhamnosus 10,000 MMU CELLS/CAPSULE PO SCH (08:00)
[2019-02-09] MEDS ORDERED: furosemide 40mg tablet PO SCH (08:00)
[2019-02-09] MEDS ORDERED: multivitamins, therapeutics tablet PO SCH (08:00)
[2019-02-09] MEDS ORDERED: diltiazem CD 180mg cap (once-daily) PO SCH (08:00)
[2019-02-09] MEDS ORDERED: atorvastatin 20mg tablet PO SCH (08:00)
[2019-02-09] MEDS ORDERED: docusate sod 100mg capsule PO SCH (08:00)
[2019-02-09] MEDS ORDERED: pantoprazole 40mg Tablet.DR PO SCH (08:00)
[2019-02-09] MEDS ORDERED: calcium carbonate/vitamin D3 tablet PO SCH (08:00)
[2019-02-09] MEDS: heparin, porcine 5000 units/ml vial SQ SCH (08:00)
[2019-02-09] MEDS ORDERED: potassium chloride 8mEq ER tablet PO SCH (08:00)
[2019-02-09] MEDS ORDERED: aspirin 81mg tab.chew PO SCH (08:30)
[2019-02-09] MEDS: cloNIDine 0.1 mg tablet PO SCH (08:59)
[2019-02-09] MEDS: normal saline 1000ml 1,000 ML IV SCH (09:12)
[2019-02-09] MEDS ORDERED: LEVO500T2 PO (09:51)
[2019-02-09 12:37] VITALS: BP 213/81
--- NOTE | 2019-02-09 12:50 | NUR ---
Patient discharged back into the care of [facility]. Patient was discharged with new medication called into the [facility] Closed door. Patient IV taken out at this time, canula was whole and intact upon removal, and patient was transported home via [facility] transportation. Patient left floor by wheelchair.
[2019-02-09] MEDS ORDERED: CefTRIAXone/D5W-Rocephin 1gm 50 ML IV SCH (17:00)
== END 2019-02-09 12:45 | disposition home health service (06) | DRG 690 ==
LOC: ER 14:44 → ED HOLD 19:59 → SUR 3N 20:55
PROVIDERS: ADMIT Hospitalist; ATTEND Internal Medicine
DX: N39.0 Urinary tract infection, site not specified (principal); E87.1 Hypo-osmolality and hyponatremia; N17.9 Acute kidney failure, unspecified; N18.3 Chronic kidney disease, stage 3 (moderate); Z66 Do not resuscitate; B96.89 Other specified bacterial agents as the cause of diseases classified elsewhere; Z88.0 Allergy status to penicillin; Z88.2 Allergy status to sulfonamides; Z88.8 Allergy status to other drugs, medicaments and biological substances; Z90.49 Acquired absence of other specified parts of digestive tract; Z90.710 Acquired absence of both cervix and uterus; Z86.73 Personal history of transient ischemic attack (TIA), and cerebral infarction without residual deficits; D64.9 Anemia, unspecified; I12.9 Hypertensive chronic kidney disease with stage 1 through stage 4 chronic kidney disease, or unspecified chronic kidney disease; Z87.440 Personal history of urinary (tract) infections; Z79.899 Other long term (current) drug therapy
CPT/HCPCS: 36415; 80048; 80053; 81001; 82948; 84484; 85025; 87077; 87081; 87088; 87186; 93005; 94760; 96365; 97162; 99285; G0378; J0696; J1644; J7030

== ENCOUNTER 2019-06-03 16:38 | Emergency (ER) | payer MEDICARE, BC ==
[~2019-06-03] VITALS: Ht 160 cm; Wt 59.1 kg
[~2019-06-03 16:38] MED LIST changes: -AMLO10TA13 PO; +B1/B1TAB PO; -CLON0.5T23 PO; +CLON0.5T4 PO; -CLOP75TA33 PO; +CLOP75TA35 PO; +DOCU-264 PO; +FERR270T PO; -FURO-149 PO; +FURO40TA4 PO; -HYDR-4069 PO; +LACTC PO; -LEVO15TA5 PO; +LEVO15TA6 PO; +OCUVITE PO; -PANT40SU2 PO; +PANT40TA4 PO; +VALS160T30 PO; -VALS1TAB77 PO
[2019-06-03 17:41] LABS: CLARITY,URINE CLOUDY (Clear); COLOR,URINE YELLOW (Yellow); GLUCOSE, URINE NEGATIVE (Neg); KETONES,URINE NEGATIVE (Neg); LEUKOCYTE ESTERASE ,URINE LARGE (Neg); NITRITES, URINE NEGATIVE (Neg); OCCULT BLOOD,URINE SMALL (Neg); PROTEIN,URINE NEGATIVE (Neg); UROBILINOGEN,URINE 0.2 E.U/dL (0.2-1.0)
[2019-06-03 17:47] LABS: BACTERIA,URINE 4+ /HPF (Neg); RBC,URINE 0-2 /HPF (0-2); UA COLLECTION TYPE STRAIGHT CATH; WBC,URINE TNTC /HPF (0-4)
[2019-06-03 17:48] LABS: MUCUS STRANDS NONE SEEN /LPF (Neg); SQUAMOUS EPITHELIAL CELL,UR NONE SEEN /LPF (FEW)
[2019-06-03] MEDS ORDERED: CEPH500C5 PO (17:57)
[2019-06-03 18:10] VITALS: BP 169/92
--- NOTE | 2019-06-03 18:19 | NUR ---
CALLED TOMY CARGO AT 1815 FOR RIDE BACK TO [facility]. PENDING SON WHO HAS POA
--- NOTE | 2019-06-03 18:26 | NUR ---
TOMY CARGO CALLED BACK AT 1824 AWAITING SON TO CALL BACK FOR APPROVAL FOR TRANSPORT
--- NOTE | 2019-06-08 13:22 | NUR ---
UNABLE TO REACH PT BY PHONE, CALLED FAMILY MEMBER AND WAS TOLD PT IS A RESIDENT AT [facility]. [facility] CALLED AND SPOKE TO PT'S NURSE, CHERYL. STATED THAT PT CLAIMS SHE IS FEELING MUCH BETTER. INFORMED PT'S NURSE THAT URINE CULTURE WAS POSITIVE FOR E.COLI FAECALIS AND THAT IF SHE WASN'T FEELING BETTER THAT THE MEDICATION WOULD BE CHANGED FROM KEFLEX TO MACROBID 100MG PO, BID X 5DAYS. NURSE REQUESTED THAT NEW MEDICATION BE FAXED TO [facility] AND SHE WOULD SPEAK TO THE PT'S PMD FOR POSSIBLE CHANGE IN MEDICATION IF NEEDED. MEDICATION ORDER FAXED REQUESTED TO [phone]
== END 2019-06-03 19:06 | disposition home or self-care (01) ==
LOC: ER 16:38
DX: N39.0 Urinary tract infection, site not specified (principal); I12.9 Hypertensive chronic kidney disease with stage 1 through stage 4 chronic kidney disease, or unspecified chronic kidney disease; N18.9 Chronic kidney disease, unspecified; Z86.73 Personal history of transient ischemic attack (TIA), and cerebral infarction without residual deficits; Z87.440 Personal history of urinary (tract) infections; Z90.710 Acquired absence of both cervix and uterus; Z90.49 Acquired absence of other specified parts of digestive tract; Z88.0 Allergy status to penicillin; Z88.2 Allergy status to sulfonamides; Z88.8 Allergy status to other drugs, medicaments and biological substances; Z88.5 Allergy status to narcotic agent; Z79.82 Long term (current) use of aspirin; Z79.899 Other long term (current) drug therapy
CPT/HCPCS: 81001; 87077; 87088; 87186; 99284

== ENCOUNTER 2020-07-18 13:14 | Emergency (ER) | payer MEDICARE, BC ==
[~2020-07-18] VITALS: Ht 160 cm; Wt 76.4 kg
[~2020-07-18 13:14] MED LIST changes: +CLOP75TA34 PO; -CLOP75TA35 PO; -PANT40TA4 PO; +PANT40TA54 PO
[2020-07-18 13:58] LABS: BASOPHILS # (AUTO) 0.1 X10'3 (0-0.2); BASOPHILS % (AUTO) 1.3 % (0-1); EOSINOPHILS # (AUTO) 0.2 X10'3 (0-0.9); EOSINOPHILS % (AUTO) 3.7 % (0-6); LYMPHOCYTES # (AUTO) 1.4 X10'3 (1.1-4.8); LYMPHOCYTES % (AUTO) 20.2 % (21-51); MEAN CORPUSCULAR HGB CONC 31.7 g/dL (33.0-36.5); MEAN CORPUSCULAR VOLUME 101.1 FL (78-98); MEAN PLATELET VOLUME 7.8 FL (7.4-10.4); MONOCYTES # (AUTO) 0.5 X10'3 (0-0.9); MONOCYTES % (AUTO) 7.8 % (2-12); NEUTROPHILS # (AUTO) 4.5 X10'3 (1.8-7.7); PLATELET COUNT 287 X10'3 (140-440); RED CELL DISTRIBUTION WIDTH 16.9 % (11.5-14.5); WHITE BLOOD COUNT 6.7 X10'3 (4.5-11.0)
[2020-07-18 14:03] LABS: HEMATOCRIT 19.2 % (35.0-45.0); HEMOGLOBIN 6.1 g/dl (12.0-16.0)
[2020-07-18 14:07] LABS: PARTIAL THROMBOPLASTIN TIME 25 SECONDS (22-32)
[2020-07-18 14:09] LABS: ALANINE AMINOTRANSFERASE 19 U/L (12-78); ALBUMIN 3.1 G/DL (3.4-5.0); ALBUMIN/GLOBULIN RATIO 0.7 (1.1-1.5); ALKALINE PHOSPHATASE 58 IU/L (46-116); ANION GAP 15 (8-16); ASPARTATE AMINO TRANSFERASE 15 U/L (10-37); BILIRUBIN,TOTAL 0.2 MG/DL (0.1-1.0); BLOOD UREA NITROGEN 35 MG/DL (7-18); BUN/CREATININE RATIO 16.8 (6.6-38.0); CALCIUM 8.8 MG/DL (8.5-10.1); CHLORIDE 111 MMOL/L (99-107); CREATININE 2.08 MG/DL (0.40-0.90); GLUCOSE 124 MG/DL (70-104); POTASSIUM 3.8 MMOL/L (3.5-5.1); SODIUM 147 MMOL/L (135-145); TOTAL CARBON DIOXIDE 21.2 MMOL/L (24-32); TOTAL PROTEIN 7.3 G/DL (6.4-8.2); eGFR 23 ML/MIN
[2020-07-18 15:26] VITALS: BP 163/76
[2020-07-18 15:50] VITALS: BP 170/78
[2020-07-18 16:33] VITALS: BP 160/79
[2020-07-18 17:15] VITALS: BP 190/84
[2020-07-18 17:45] VITALS: BP 186/79
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
--- NOTE | 2020-07-18 20:24 | NUR ---
Transport arrived in room 3, pt was discharge, return in her facility. Denies pain or discomfort, calm and cooperative. Alert and oriented as habitual. Received document and discharge instruction. verbaize understanding.
== END 2020-07-18 20:29 | disposition home or self-care (01) ==
LOC: ER 13:15
DX: D64.9 Anemia, unspecified (principal); R42 Dizziness and giddiness; R53.1 Weakness; I12.9 Hypertensive chronic kidney disease with stage 1 through stage 4 chronic kidney disease, or unspecified chronic kidney disease; N18.9 Chronic kidney disease, unspecified; Z86.2 Personal history of diseases of the blood and blood-forming organs and certain disorders involving the immune mechanism; Z86.73 Personal history of transient ischemic attack (TIA), and cerebral infarction without residual deficits; Z85.41 Personal history of malignant neoplasm of cervix uteri; Z90.49 Acquired absence of other specified parts of digestive tract; Z90.710 Acquired absence of both cervix and uterus; Z98.890 Other specified postprocedural states; Z88.0 Allergy status to penicillin; Z88.2 Allergy status to sulfonamides; Z88.6 Allergy status to analgesic agent; Z88.8 Allergy status to other drugs, medicaments and biological substances; Z79.82 Long term (current) use of aspirin; Z79.899 Other long term (current) drug therapy
CPT/HCPCS: 36415; 36430; 80053; 85025; 85610; 85730; 86885; 86900; 86901; 86920; 99285; P9016

== ENCOUNTER 2020-07-19 08:34 | Emergency (ER) | payer MEDICARE, BC ==
[~2020-07-19] VITALS: Ht 160 cm; Wt 76.4 kg
--- NOTE | 2020-07-19 09:56 | NUR ---
after speaking with dr van and review of ct, isabel eason removed. pt marivel well
[2020-07-19] MEDS ORDERED: hyDRALAzine 10mg tablet PO SCH (10:10)
[2020-07-19 10:28] LABS: BASOPHILS # (AUTO) 0.1 X10'3 (0-0.2); BASOPHILS % (AUTO) 1.1 % (0-1); EOSINOPHILS # (AUTO) 0.2 X10'3 (0-0.9); EOSINOPHILS % (AUTO) 2.4 % (0-6); HEMATOCRIT 26.6 % (35.0-45.0); HEMOGLOBIN 8.4 g/dl (12.0-16.0); LYMPHOCYTES % (AUTO) 11.9 % (21-51); MEAN CORPUSCULAR HEMOGLOBIN 31.5 PG (27.0-31.0); MEAN CORPUSCULAR HGB CONC 31.5 g/dL (33.0-36.5); MEAN CORPUSCULAR VOLUME 100.1 FL (78-98); MONOCYTES # (AUTO) 0.6 X10'3 (0-0.9); MONOCYTES % (AUTO) 6.4 % (2-12); NEUTROPHILS # (AUTO) 6.9 X10'3 (1.8-7.7); NEUTROPHILS % (AUTO) 78.2 % (42-75); PLATELET COUNT 287 X10'3 (140-440); RED BLOOD COUNT 2.65 X10'6 (4.20-5.60); RED CELL DISTRIBUTION WIDTH 16.8 % (11.5-14.5); WHITE BLOOD COUNT 8.8 X10'3 (4.5-11.0)
--- NOTE | 2020-07-19 10:53 | NUR ---
CALL TO [facility] FOR UPDATE. THEY WILL ARRANGE TRANSPORT BACK VIA [facility]. REPORT GIVEN
[2020-07-19 13:41] VITALS: BP 185/96
== END 2020-07-19 13:44 | disposition home or self-care (01) ==
LOC: ER 08:35
DX: D64.9 Anemia, unspecified (principal); I12.9 Hypertensive chronic kidney disease with stage 1 through stage 4 chronic kidney disease, or unspecified chronic kidney disease; N18.9 Chronic kidney disease, unspecified; Z86.73 Personal history of transient ischemic attack (TIA), and cerebral infarction without residual deficits; Z86.2 Personal history of diseases of the blood and blood-forming organs and certain disorders involving the immune mechanism; Z87.440 Personal history of urinary (tract) infections; Z85.41 Personal history of malignant neoplasm of cervix uteri; Z90.49 Acquired absence of other specified parts of digestive tract; Z90.710 Acquired absence of both cervix and uterus; Z98.890 Other specified postprocedural states; Z88.0 Allergy status to penicillin; Z88.2 Allergy status to sulfonamides; Z88.6 Allergy status to analgesic agent; Z88.8 Allergy status to other drugs, medicaments and biological substances; Z79.82 Long term (current) use of aspirin; Z79.899 Other long term (current) drug therapy; W18.30XA Fall on same level, unspecified, initial encounter; Y93.89 Activity, other specified; Y92.89 Other specified places as the place of occurrence of the external cause; Y99.8 Other external cause status
CPT/HCPCS: 36415; 70450; 72125; 85025; 99285

== ENCOUNTER 2020-10-01 09:22 | Emergency (ER) | payer MEDICARE, BC ==
[~2020-10-01] VITALS: Ht 160 cm; Wt 60.0 kg
[~2020-10-01 09:22] MED LIST changes: -DOCU-264 PO; +DOCU-323 PO
[2020-10-01 13:40] VITALS: BP 166/87
== END 2020-10-01 13:42 | disposition home or self-care (01) ==
LOC: ER 09:22
DX: S80.01XA Contusion of right knee, initial encounter (principal); I12.9 Hypertensive chronic kidney disease with stage 1 through stage 4 chronic kidney disease, or unspecified chronic kidney disease; N18.9 Chronic kidney disease, unspecified; Z87.440 Personal history of urinary (tract) infections; Z87.410 Personal history of cervical dysplasia; Z86.2 Personal history of diseases of the blood and blood-forming organs and certain disorders involving the immune mechanism; Z86.73 Personal history of transient ischemic attack (TIA), and cerebral infarction without residual deficits; Z90.49 Acquired absence of other specified parts of digestive tract; Z90.710 Acquired absence of both cervix and uterus; Z88.0 Allergy status to penicillin; Z88.2 Allergy status to sulfonamides; Z88.8 Allergy status to other drugs, medicaments and biological substances; Z79.82 Long term (current) use of aspirin; Z79.899 Other long term (current) drug therapy; W19.XXXA Unspecified fall, initial encounter; Y93.89 Activity, other specified; Y92.89 Other specified places as the place of occurrence of the external cause; Y99.8 Other external cause status
CPT/HCPCS: 73564; 99284

== ENCOUNTER 2020-10-03 11:21 | Emergency (ER) | payer MEDICARE, BC ==
[~2020-10-03] VITALS: Ht 160 cm; Wt 59.1 kg
--- NOTE | 2020-10-03 11:37 | NUR ---
Krystian VALDEZ updated on pt condition. No unilateral weakness, facial droop, loss of sensation noted. Staff at facility indicated to EMS worsening speech and weakness. Head CT ordered per Krystian VALDEZ.
[2020-10-03] MEDS ORDERED: normal saline 1000ML IV soln IVB ONE (11:55)
[2020-10-03 12:20] LABS: BASOPHILS # (AUTO) 0.1 X10'3 (0-0.2); BASOPHILS % (AUTO) 1.2 % (0-1); EOSINOPHILS # (AUTO) 0.2 X10'3 (0-0.9); EOSINOPHILS % (AUTO) 3.1 % (0-6); HEMATOCRIT 25.3 % (35.0-45.0); HEMOGLOBIN 8.2 g/dl (12.0-16.0); LYMPHOCYTES # (AUTO) 2.3 X10'3 (1.1-4.8); LYMPHOCYTES % (AUTO) 30.9 % (21-51); MEAN CORPUSCULAR HEMOGLOBIN 29.5 PG (27.0-31.0); MEAN CORPUSCULAR HGB CONC 32.2 g/dL (33.0-36.5); MEAN CORPUSCULAR VOLUME 91.4 FL (78-98); MONOCYTES # (AUTO) 0.7 X10'3 (0-0.9); MONOCYTES % (AUTO) 9.2 % (2-12); NEUTROPHILS # (AUTO) 4.1 X10'3 (1.8-7.7); NEUTROPHILS % (AUTO) 55.6 % (42-75); PLATELET COUNT 215 X10'3 (140-440); RED BLOOD COUNT 2.77 X10'6 (4.20-5.60); RED CELL DISTRIBUTION WIDTH 19.4 % (11.5-14.5); WHITE BLOOD COUNT 7.4 X10'3 (4.5-11.0)
[2020-10-03 12:46] LABS: ANISOCYTOSIS 2+; ELLIPTOCYTES 1+; PLATELET ESTIMATE NORMAL
[2020-10-03 12:47] LABS: SCHISTOCYTES FEW
[2020-10-03 13:02] LABS: ALANINE AMINOTRANSFERASE 17 U/L (12-78); ALBUMIN 3.5 G/DL (3.4-5.0); ALKALINE PHOSPHATASE 44 IU/L (46-116); ANION GAP 10 (8-16); ASPARTATE AMINO TRANSFERASE 15 U/L (10-37); BILIRUBIN,TOTAL 0.2 MG/DL (0.1-1.0); BLOOD UREA NITROGEN 50 MG/DL (7-18); BUN/CREATININE RATIO 20.4 (6.6-38.0); CALCIUM 9.7 MG/DL (8.5-10.1); CHLORIDE 107 MMOL/L (99-107); CREATININE 2.45 MG/DL (0.40-0.90); GLUCOSE 90 MG/DL (70-104); POTASSIUM 4.6 MMOL/L (3.5-5.1); SODIUM 137 MMOL/L (135-145); TOTAL CARBON DIOXIDE 20.2 MMOL/L (24-32); TOTAL PROTEIN 7.1 G/DL (6.4-8.2); eGFR 19 ML/MIN
[2020-10-03 13:08] LABS: TROPONIN I < 0.04 NG/ML (0.0-0.05)
[2020-10-03 13:08] LABS: CLARITY,URINE CLOUDY (Clear); COLOR,URINE YELLOW (Yellow); GLUCOSE, URINE NEGATIVE (Neg); KETONES,URINE NEGATIVE (Neg); LEUKOCYTE ESTERASE ,URINE LARGE (Neg); NITRITES, URINE NEGATIVE (Neg); OCCULT BLOOD,URINE NEGATIVE (Neg); PH,URINE 5.5 (4.8-8.0); PROTEIN,URINE TRACE mg/dl (Neg); UROBILINOGEN,URINE 0.2 E.U/dL (0.2-1.0)
[2020-10-03 13:23] LABS: UA COLLECTION TYPE STRAIGHT CATH
[2020-10-03 13:39] LABS: MUCUS STRANDS FEW /LPF (Neg); SQUAMOUS EPITHELIAL CELL,UR MODERATE /LPF (FEW)
[2020-10-03 13:40] LABS: RBC,URINE 0-2 /HPF (0-2); WBC,URINE TNTC /HPF (0-4)
[2020-10-03 13:41] LABS: BACTERIA,URINE 4+ /HPF (Neg)
--- NOTE | 2020-10-03 14:13 | NUR ---
Note aleksandrajeny in ED - 10/03/20 at 1415 by DARREN JOSÉ MIGUEL Staples notified BP 194/73 at discharge. Gisela from facility wanted to know if pt will receive blood transfusion or UTI medication, Jhoan notified and no further intervention. Facility will send transportation around 1500
--- NOTE | 2020-10-03 14:16 | NUR ---
JOSÉ MIGUEL Staples notified BP 194/73 at discharge. Gisela from facility wanted to know if pt will receive blood transfusion or UTI medication, Jhoan notified and no further intervention. Facility will send transportation around 1500
[2020-10-03 15:31] VITALS: BP 195/88
== END 2020-10-03 15:32 | disposition home or self-care (01) ==
LOC: ER 11:22
DX: E86.0 Dehydration (principal); R53.1 Weakness; I12.9 Hypertensive chronic kidney disease with stage 1 through stage 4 chronic kidney disease, or unspecified chronic kidney disease; N18.9 Chronic kidney disease, unspecified; Z86.73 Personal history of transient ischemic attack (TIA), and cerebral infarction without residual deficits; Z86.2 Personal history of diseases of the blood and blood-forming organs and certain disorders involving the immune mechanism; Z85.41 Personal history of malignant neoplasm of cervix uteri; Z90.49 Acquired absence of other specified parts of digestive tract; Z90.710 Acquired absence of both cervix and uterus; Z98.890 Other specified postprocedural states; Z88.0 Allergy status to penicillin; Z88.2 Allergy status to sulfonamides; Z88.8 Allergy status to other drugs, medicaments and biological substances; Z79.82 Long term (current) use of aspirin; Z79.899 Other long term (current) drug therapy
CPT/HCPCS: 36415; 70450; 71045; 72131; 80053; 81001; 84484; 85008; 85025; 87088; 93005; 99285; J7030

== ENCOUNTER 2020-10-09 09:30 | Emergency (ER) | payer MEDICARE, BC ==
[2020-10-09 10:10] LABS: BASOPHILS # (AUTO) 0.1 X10'3 (0-0.2); EOSINOPHILS # (AUTO) 0.2 X10'3 (0-0.9); EOSINOPHILS % (AUTO) 1.6 % (0-6); HEMATOCRIT 29.2 % (35.0-45.0); HEMOGLOBIN 9.7 g/dl (12.0-16.0); LYMPHOCYTES # (AUTO) 2.3 X10'3 (1.1-4.8); MEAN CORPUSCULAR HEMOGLOBIN 29.9 PG (27.0-31.0); MEAN CORPUSCULAR HGB CONC 33.1 g/dL (33.0-36.5); MEAN CORPUSCULAR VOLUME 90.2 FL (78-98); MONOCYTES # (AUTO) 0.7 X10'3 (0-0.9); MONOCYTES % (AUTO) 7.2 % (2-12); NEUTROPHILS # (AUTO) 6.5 X10'3 (1.8-7.7); NEUTROPHILS % (AUTO) 66.2 % (42-75); PLATELET COUNT 239 X10'3 (140-440); RED BLOOD COUNT 3.23 X10'6 (4.20-5.60); RED CELL DISTRIBUTION WIDTH 19.1 % (11.5-14.5); WHITE BLOOD COUNT 9.8 X10'3 (4.5-11.0)
[2020-10-09 10:17] LABS: ALANINE AMINOTRANSFERASE 14 U/L (12-78); ALBUMIN 3.9 G/DL (3.4-5.0); ALBUMIN/GLOBULIN RATIO 0.9 (1.1-1.5); ALKALINE PHOSPHATASE 62 IU/L (46-116); ANION GAP 15 (8-16); ASPARTATE AMINO TRANSFERASE 18 U/L (10-37); BILIRUBIN,TOTAL 0.3 MG/DL (0.1-1.0); BLOOD UREA NITROGEN 34 MG/DL (7-18); BUN/CREATININE RATIO 17.4 (6.6-38.0); CALCIUM 10.3 MG/DL (8.5-10.1); CHLORIDE 107 MMOL/L (99-107); CREATININE 1.95 MG/DL (0.40-0.90); GLUCOSE 82 MG/DL (70-104); POTASSIUM 4.4 MMOL/L (3.5-5.1); SODIUM 140 MMOL/L (135-145); TOTAL CARBON DIOXIDE 18.5 MMOL/L (24-32); TOTAL PROTEIN 8.3 G/DL (6.4-8.2); eGFR 25 ML/MIN
[2020-10-09 11:03] LABS: CLARITY,URINE CLOUDY (Clear); COLOR,URINE YELLOW (Yellow); GLUCOSE, URINE NEGATIVE (Neg); KETONES,URINE TRACE mg/dl (Neg); LEUKOCYTE ESTERASE ,URINE LARGE (Neg); NITRITES, URINE NEGATIVE (Neg); OCCULT BLOOD,URINE NEGATIVE (Neg); PH,URINE 5.5 (4.8-8.0); PROTEIN,URINE 30 mg/dl (Neg); UROBILINOGEN,URINE 0.2 E.U/dL (0.2-1.0)
[2020-10-09 11:05] LABS: UA COLLECTION TYPE STRAIGHT CATH
[2020-10-09] MEDS ORDERED: acetaminophen 325mg tablet PO ONE (11:05)
[2020-10-09 11:15] LABS: WBC,URINE TNTC /HPF (0-4)
[2020-10-09 11:16] LABS: BACTERIA,URINE 4+ /HPF (Neg); RBC,URINE NONE SEEN /HPF (0-2); SQUAMOUS EPITHELIAL CELL,UR FEW /LPF (FEW)
[2020-10-09 11:23] VITALS: BP 240/84
[2020-10-09] MEDS ORDERED: CEPH250T PO (11:30)
--- NOTE | 2020-10-09 12:00 | NUR ---
DISCUSSED PTS ELEVATED BPS WITH PROVIDER Melita SPAIN, ORAL MED TO BE ORDERED PER PROVIDER.
[2020-10-09] MEDS ORDERED: cloNIDine 0.1 mg tablet PO ONE (12:15)
--- NOTE | 2020-10-09 12:20 | NUR ---
REPORT GIVEN TO SHIVANI AT [facility]
[2020-10-09 15:02] LABS: ANISOCYTOSIS 2+; BURR CELLS FEW; ELLIPTOCYTES 1+; GIANT PLATELET FEW; LARGE PLATELETS FEW; PLATELET ESTIMATE NORMAL; SCHISTOCYTES FEW
== END 2020-10-09 14:04 | disposition home or self-care (01) ==
LOC: ER 09:30
DX: N39.0 Urinary tract infection, site not specified (principal); M79.18 Myalgia, other site; I12.0 Hypertensive chronic kidney disease with stage 5 chronic kidney disease or end stage renal disease; N18.9 Chronic kidney disease, unspecified; D63.1 Anemia in chronic kidney disease; Z87.440 Personal history of urinary (tract) infections; Z86.73 Personal history of transient ischemic attack (TIA), and cerebral infarction without residual deficits; Z87.410 Personal history of cervical dysplasia; Z90.49 Acquired absence of other specified parts of digestive tract; Z90.710 Acquired absence of both cervix and uterus; Z88.0 Allergy status to penicillin; Z88.2 Allergy status to sulfonamides; Z88.8 Allergy status to other drugs, medicaments and biological substances; Z79.82 Long term (current) use of aspirin; Z79.899 Other long term (current) drug therapy; W06.XXXA Fall from bed, initial encounter; Y93.89 Activity, other specified; Y92.89 Other specified places as the place of occurrence of the external cause; Y99.8 Other external cause status
CPT/HCPCS: 36415; 70450; 71045; 72125; 80053; 81001; 85008; 85025; 87088; 99285

== ENCOUNTER 2020-12-05 10:03 | Emergency (ER) | payer MEDICARE, BC ==
[~2020-12-05] VITALS: Ht 160 cm; Wt 59.0 kg
[2020-12-05 11:16] LABS: CLARITY,URINE CLOUDY (Clear); COLOR,URINE YELLOW (Yellow); GLUCOSE, URINE NEGATIVE (Neg)
[2020-12-05 11:17] LABS: LEUKOCYTE ESTERASE ,URINE SMALL (Neg); NITRITES, URINE NEGATIVE (Neg); UROBILINOGEN,URINE 0.2 E.U/dL (0.2-1.0)
[2020-12-05 11:22] LABS: HEMOGLOBIN 9.2 g/dl (12.0-16.0); MEAN CORPUSCULAR HGB CONC 32.7 g/dL (33.0-36.5); WHITE BLOOD COUNT 8.1 X10'3 (4.5-11.0)
[2020-12-05 11:23] LABS: BASOPHILS # (AUTO) 0.1 X10'3 (0-0.2); BASOPHILS % (AUTO) 1.3 % (0-1); EOSINOPHILS # (AUTO) 0.2 X10'3 (0-0.9); HEMATOCRIT 28.1 % (35.0-45.0); LYMPHOCYTES # (AUTO) 2.8 X10'3 (1.1-4.8); LYMPHOCYTES % (AUTO) 34.6 % (21-51); MEAN CORPUSCULAR HEMOGLOBIN 31.4 PG (27.0-31.0); MEAN CORPUSCULAR VOLUME 96.1 FL (78-98); MONOCYTES # (AUTO) 0.6 X10'3 (0-0.9); MONOCYTES % (AUTO) 7.3 % (2-12); NEUTROPHILS # (AUTO) 4.3 X10'3 (1.8-7.7); NEUTROPHILS % (AUTO) 53.8 % (42-75); PLATELET COUNT 281 X10'3 (140-440); RED BLOOD COUNT 2.93 X10'6 (4.20-5.60); RED CELL DISTRIBUTION WIDTH 14.9 % (11.5-14.5)
[2020-12-05 11:26] LABS: ALANINE AMINOTRANSFERASE 12 U/L (12-78); ALBUMIN 3.5 G/DL (3.4-5.0); ALBUMIN/GLOBULIN RATIO 0.9 (1.1-1.5); ALKALINE PHOSPHATASE 63 IU/L (46-116); ANION GAP 12 (8-16); ASPARTATE AMINO TRANSFERASE 15 U/L (10-37); BILIRUBIN,TOTAL 0.2 MG/DL (0.1-1.0); BLOOD UREA NITROGEN 49 MG/DL (7-18); BUN/CREATININE RATIO 19.5 (6.6-38.0); CALCIUM 10.8 MG/DL (8.5-10.1); CHLORIDE 109 MMOL/L (99-107); CREATININE 2.51 MG/DL (0.40-0.90); GLUCOSE 98 MG/DL (70-104); POTASSIUM 4.6 MMOL/L (3.5-5.1); SODIUM 144 MMOL/L (135-145); TOTAL CARBON DIOXIDE 23.2 MMOL/L (24-32); TOTAL PROTEIN 7.3 G/DL (6.4-8.2); eGFR 18 ML/MIN
[2020-12-05 11:27] LABS: UA COLLECTION TYPE NON-SPECIFIED
--- NOTE | 2020-12-05 11:27 | NUR ---
ERROR INPUTTING UA FROM LAB PER YANETH. Blood, Protein, Ketones will be corrected
[2020-12-05 11:28] LABS: KETONES,URINE NEGATIVE (Neg); OCCULT BLOOD,URINE NEGATIVE (Neg); PROTEIN,URINE 30 mg/dl (Neg)
[2020-12-05 11:37] LABS: BACTERIA,URINE 3+ /HPF (Neg); HYALINE CASTS 0-3 /LPF (NEGATIVE); RBC,URINE 0-2 /HPF (0-2); SQUAMOUS EPITHELIAL CELL,UR FEW /LPF (FEW); WBC,URINE 50-100 /HPF (0-4)
[2020-12-05 12:08] VITALS: BP 152/74
--- NOTE | 2020-12-05 12:21 | NUR ---
[facility] transport [phone].
[2020-12-05] MEDS ORDERED: CEPH250T PO (12:43)
== END 2020-12-05 13:35 | disposition home or self-care (01) ==
LOC: ER 10:03
DX: N13.8 Other obstructive and reflux uropathy (principal); N39.0 Urinary tract infection, site not specified; I13.10 Hypertensive heart and chronic kidney disease without heart failure, with stage 1 through stage 4 chronic kidney disease, or unspecified chronic kidney disease; N18.9 Chronic kidney disease, unspecified; D64.9 Anemia, unspecified; Z88.0 Allergy status to penicillin; Z88.2 Allergy status to sulfonamides; Z88.8 Allergy status to other drugs, medicaments and biological substances
CPT/HCPCS: 36415; 51702; 80053; 81001; 85025; 87088; 99284

== ENCOUNTER 2020-12-12 19:48 | Emergency (ER) | payer MEDICARE, BC ==
[~2020-12-12] VITALS: Ht 160 cm; Wt 60.5 kg
[~2020-12-12 19:48] MED LIST changes: +CEPH250T PO
[2020-12-12 22:25] VITALS: BP 173/98
== END 2020-12-13 03:45 | disposition home or self-care (01) ==
LOC: ER 19:49
DX: S00.03XA Contusion of scalp, initial encounter (principal); I12.9 Hypertensive chronic kidney disease with stage 1 through stage 4 chronic kidney disease, or unspecified chronic kidney disease; N18.9 Chronic kidney disease, unspecified; Z86.73 Personal history of transient ischemic attack (TIA), and cerebral infarction without residual deficits; Z86.2 Personal history of diseases of the blood and blood-forming organs and certain disorders involving the immune mechanism; Z85.41 Personal history of malignant neoplasm of cervix uteri; Z90.49 Acquired absence of other specified parts of digestive tract; Z90.710 Acquired absence of both cervix and uterus; Z98.890 Other specified postprocedural states; Z88.0 Allergy status to penicillin; Z88.2 Allergy status to sulfonamides; Z88.6 Allergy status to analgesic agent; Z88.8 Allergy status to other drugs, medicaments and biological substances; Z79.82 Long term (current) use of aspirin; Z79.899 Other long term (current) drug therapy; W19.XXXA Unspecified fall, initial encounter; Y93.89 Activity, other specified; Y92.89 Other specified places as the place of occurrence of the external cause; Y99.8 Other external cause status
CPT/HCPCS: 70450; 72125; 99285

== ENCOUNTER 2020-12-25 11:11 | Inpatient (IN) | payer MEDICARE, BC ==
[~2020-12-25] VITALS: Ht 170.2 cm; Wt 54.5 kg
[~2020-12-25 11:11] MED LIST changes: -CEPH250T PO
[2020-12-25 11:51] LABS: BASOPHILS % (AUTO) 0.5 % (0-1); EOSINOPHILS % (AUTO) 0.2 % (0-6); HEMATOCRIT 22.5 % (35.0-45.0); HEMOGLOBIN 7.4 g/dl (12.0-16.0); LYMPHOCYTES # (AUTO) 0.6 X10'3 (1.1-4.8); LYMPHOCYTES % (AUTO) 7.7 % (21-51); MEAN CORPUSCULAR HEMOGLOBIN 31.7 PG (27.0-31.0); MEAN CORPUSCULAR HGB CONC 32.8 g/dL (33.0-36.5); MEAN CORPUSCULAR VOLUME 96.5 FL (78-98); MEAN PLATELET VOLUME 7.5 FL (7.4-10.4); MONOCYTES # (AUTO) 0.3 X10'3 (0-0.9); MONOCYTES % (AUTO) 3.3 % (2-12); NEUTROPHILS # (AUTO) 6.8 X10'3 (1.8-7.7); NEUTROPHILS % (AUTO) 88.3 % (42-75); PLATELET COUNT 236 X10'3 (140-440); RED BLOOD COUNT 2.33 X10'6 (4.20-5.60); RED CELL DISTRIBUTION WIDTH 16.2 % (11.5-14.5); WHITE BLOOD COUNT 7.7 X10'3 (4.5-11.0)
[2020-12-25 12:04] LABS: ALANINE AMINOTRANSFERASE 15 U/L (12-78); ALBUMIN 2.9 G/DL (3.4-5.0); ALBUMIN/GLOBULIN RATIO 0.8 (1.1-1.5); ALKALINE PHOSPHATASE 56 IU/L (46-116); ANION GAP 13 (8-16); ASPARTATE AMINO TRANSFERASE 14 U/L (10-37); BILIRUBIN,TOTAL 0.1 MG/DL (0.1-1.0); BLOOD UREA NITROGEN 48 MG/DL (7-18); BUN/CREATININE RATIO 17.3 (6.6-38.0); CALCIUM 8.6 MG/DL (8.5-10.1); CHLORIDE 108 MMOL/L (99-107); CREATININE 2.77 MG/DL (0.40-0.90); GLUCOSE 152 MG/DL (70-104); POTASSIUM 4.3 MMOL/L (3.5-5.1); SODIUM 141 MMOL/L (135-145); TOTAL CARBON DIOXIDE 20.2 MMOL/L (24-32); TOTAL PROTEIN 6.5 G/DL (6.4-8.2); eGFR 16 ML/MIN
[2020-12-25] MEDS ORDERED: NITR100C11 PO (13:25)
[2020-12-25] MEDS ORDERED: HYDR-4070 PO (13:25)
[2020-12-25] MEDS ORDERED: TEMA15CA PO (13:25)
[2020-12-25] MEDS ORDERED: DILT90TA2 PO (13:25)
[2020-12-25] MEDS ORDERED: FLO0.4C PO (13:25)
[2020-12-25] MEDS ORDERED: CLON0.2T PO (13:27)
[2020-12-25] MEDS ORDERED: ESTR1VAG VG (13:27)
[2020-12-25] MEDS ORDERED: acetaminophen 325mg tablet PO PRN ×2 (14:00)
[2020-12-25] MEDS ORDERED: mag hydrox/Alum hydrox/simeth 30ml oral suspension PO PRN (14:00)
[2020-12-25] MEDS ORDERED: dextrose ORAL solution 15 GM/59 ML bottle PO PRN ×2 (14:00)
[2020-12-25] MEDS ORDERED: insulin Lispro (HumaLOG) vial - multi-dose SQ SCH (14:00)
[2020-12-25] MEDS ORDERED: magnesium hydroxide 30ml (MOM) UD suspension PO PRN (14:00)
[2020-12-25] MEDS ORDERED: ondansetron/PF 4mg/2ml inj IV PRN (14:00)
[2020-12-25] MEDS ORDERED: glucagon, human recombinant 1mg kit SUBCUT PRN (14:00)
[2020-12-25] MEDS ORDERED: morphine 2 MG/ML inj. syringe IV PRN ×2 (14:00)
[2020-12-25] MEDS ORDERED: MESSAGE TO PHARMACY PO ONE (14:00)
[2020-12-25 14:27] LABS: HEMOGLOBIN A1C 4.8 % (4.5-6.2)
--- NOTE | 2020-12-25 15:09 | NUR ---
IN TO SEE PT SHE WAS NOTED TO BE HARD TO ROUSE. BS 23. D 50 GIVEN, IV FLUIDS D51/2 NS STARTED AT 100.
[2020-12-25] MEDS: dextrose 50%-water 50ml dispensing syringe IV PRN ×3 (15:12→20:50)
[2020-12-25] MEDS: dextrose 5%-1/2 normal saline 1,000 ML IV SCH (15:16)
--- NOTE | 2020-12-25 15:29 | NUR ---
PT MENDY CABRERA TO NAME ABLE TO STATE THEN IMEDIATLY RETURNS TO WHAT APPEARS SLEEPING
--- NOTE | 2020-12-25 15:40 | NUR ---
DR ZELAYA NOTIFIED OF LOW BS AND PTS CONTINUED LETHARGY. ORDER FOR ACCUCHECKS Q1HR.
--- NOTE | 2020-12-25 16:14 | NUR ---
DAUGHTER BETTY CALLED FOR UPDATE. [phone]. SHE WILL BE COMING DOWN FROM [facility] TO SEE PT
--- NOTE | 2020-12-25 16:33 | NUR ---
PT CONTINOUS TO BE LETHARGIC
--- NOTE | 2020-12-25 18:02 | NUR ---
PT NOW AWAKE AND ALERT.
[2020-12-25 18:55] LABS: CLARITY,URINE CLOUDY (Clear); COLOR,URINE YELLOW (Yellow); GLUCOSE, URINE NEGATIVE (Neg); KETONES,URINE NEGATIVE (Neg); OCCULT BLOOD,URINE NEGATIVE (Neg); PROTEIN,URINE 30 mg/dl (Neg); UA COLLECTION TYPE OTHER
[2020-12-25 18:56] LABS: LEUKOCYTE ESTERASE ,URINE MODERATE (Neg); NITRITES, URINE POSITIVE (Neg); UROBILINOGEN,URINE 0.2 E.U/dL (0.2-1.0)
[2020-12-25 19:03] LABS: RBC,URINE NONE SEEN /HPF (0-2); WBC,URINE 50-100 /HPF (0-4)
[2020-12-25 19:04] LABS: AMORPHOUS PHOSPHATES 2+; BACTERIA,URINE 3+ /HPF (Neg); SQUAMOUS EPITHELIAL CELL,UR NONE SEEN /LPF (FEW); TRIPLE PHOSPHATE CRYST 4+ /HPF (NEGATIVE)
--- NOTE | 2020-12-25 19:30 | NUR ---
ATTEMPTED TO CALL REPORT. RN TO CALL BACK
--- NOTE | 2020-12-25 19:50 | NUR ---
ATTEMTED TO CALL REPORT FOR SECOND TIME. RN NOT AVAILABLE
--- NOTE | 2020-12-25 20:32 | NUR ---
UPDATED PT DAUGHTER ON PT CONDITION
[2020-12-25] MEDS: insulin glargine (Lantus) pen - multi-dose SQ SCH (21:00)
[2020-12-25] MEDS: hydrALAZINE 25 MG tablet PO SCH (21:00)
[2020-12-25] MEDS: diltiazem 30mg tablet PO SCH (21:34)
[2020-12-25] MEDS: docusate sod 100mg capsule PO SCH (21:34)
[2020-12-25] MEDS: cloNIDine 0.1 mg tablet PO SCH (21:34)
[2020-12-25 21:45] VITALS: BP 120/78
[2020-12-26] VITALS (11 sets, daily range): BP systolic 101–182; BP diastolic 42–82
[2020-12-26] MEDS: dextrose 5%-1/2 normal saline 1,000 ML IV SCH ×2 (00:34→08:03)
--- NOTE | 2020-12-26 06:08 | NUR ---
Nursing Note Pt has weak cough; able to tolerate pureed food such as apple sauce however started coughing with water and solids. Gave milk thickener and was able to swallow. HOB >30 degrees ans suction at bedside.
[2020-12-26 06:51] LABS: BASOPHILS # (AUTO) 0.1 X10'3 (0-0.2); BASOPHILS % (AUTO) 0.8 % (0-1); EOSINOPHILS # (AUTO) 0.1 X10'3 (0-0.9); EOSINOPHILS % (AUTO) 1.6 % (0-6); LYMPHOCYTES # (AUTO) 1.5 X10'3 (1.1-4.8); MEAN CORPUSCULAR HGB CONC 32.1 g/dL (33.0-36.5); MEAN CORPUSCULAR VOLUME 96.8 FL (78-98); MEAN PLATELET VOLUME 7.7 FL (7.4-10.4); MONOCYTES # (AUTO) 0.5 X10'3 (0-0.9); MONOCYTES % (AUTO) 7.3 % (2-12); NEUTROPHILS # (AUTO) 4.5 X10'3 (1.8-7.7); NEUTROPHILS % (AUTO) 67.3 % (42-75); PLATELET COUNT 223 X10'3 (140-440); RED BLOOD COUNT 2.01 X10'6 (4.20-5.60); RED CELL DISTRIBUTION WIDTH 15.7 % (11.5-14.5); WHITE BLOOD COUNT 6.7 X10'3 (4.5-11.0)
--- NOTE | 2020-12-26 06:51 | NUR ---
Problems reprioritized. Patient report given, questions answered & plan of care reviewed with Fior.
[2020-12-26 06:56] LABS: HEMOGLOBIN 6.2 g/dl (12.0-16.0)
[2020-12-26 06:57] LABS: HEMATOCRIT 19.4 % (35.0-45.0)
--- NOTE | 2020-12-26 07:02 | NUR ---
Paged Dr. Calero PAGER ID: [phone] MESSAGE: PCU [id number] Karina Jarquin critical lab H&H 6.2 and 19.4. [id number] Fior BARBOSA
[2020-12-26 07:15] LABS: ALBUMIN 2.6 G/DL (3.4-5.0); ANION GAP 16 (8-16); BLOOD UREA NITROGEN 39 MG/DL (7-18); BUN/CREATININE RATIO 17.6 (6.6-38.0); CALCIUM 8.1 MG/DL (8.5-10.1); CHLORIDE 108 MMOL/L (99-107); CREATININE 2.21 MG/DL (0.40-0.90); GLUCOSE 55 MG/DL (70-104); POTASSIUM 3.9 MMOL/L (3.5-5.1); SODIUM 141 MMOL/L (135-145); eGFR 21 ML/MIN
[2020-12-26] MEDS: dextrose 50%-water 50ml dispensing syringe IV PRN (07:41)
[2020-12-26] MEDS: atorvastatin 20mg tablet PO SCH (08:05)
[2020-12-26] MEDS: docusate sod 100mg capsule PO SCH ×2 (08:05→20:44)
[2020-12-26] MEDS: diltiazem 30mg tablet PO SCH ×2 (08:05→20:50)
[2020-12-26] MEDS: hydrALAZINE 25 MG tablet PO SCH ×3 (08:05→20:51)
[2020-12-26] MEDS: clopidogrel 75mg tablet PO SCH (08:05)
[2020-12-26] MEDS: cloNIDine 0.1 mg tablet PO SCH ×2 (08:05→20:51)
--- NOTE | 2020-12-26 09:05 | NUR ---
Spoke with Dr. Calero regarding low Blood sugar this morning of 42, gave 1 amp D50 which brought up blood sugar to 144. Current Blood sugar is 97 and on D51/2 NS at 100. He gave orders to change IV fluid to D10 water at 100ml an hour. Also discussed low H&H 6.2 and 19.4. He stated to get a blood form consent and he will place orders in for blood transfusion.
[2020-12-26] MEDS: CefTRIAXone/D5W-Rocephin 1gm 50 ML IV SCH (09:48)
[2020-12-26] MEDS: nitrofuran/nitrofuran macrocrysal 100 MG capsule PO SCH (09:48)
[2020-12-26] MEDS: Dextrose 10%-water IV solution 1,000 ML IV SCH ×2 (09:49→20:44)
--- NOTE | 2020-12-26 09:49 | NUR ---
Maurizio Consult: Maurizio lewis/ TRACY to sacrum/perianal areas otherwise skin intact per EMR. Addendum: 12/26/20 at [address] Amended: Links added.
--- NOTE | 2020-12-26 13:29 | NUR ---
Paged Dr. Calero PAGER ID: [phone] MESSAGE: PCU [id number] Karina Jarquin, H&H 6.2 and 19.4. There is not orders for blood just occult stool. Would you like to type and screen, and give a unit of blood? Fior BARBOSA [id number]
--- NOTE | 2020-12-26 14:35 | NUR ---
Orders for 1 unit of blood put in per Dr. Calero.
--- NOTE | 2020-12-26 18:40 | NUR ---
Problems reprioritized. Patient report given, questions answered & plan of care reviewed with Gloria BARBOSA.
[2020-12-26] MEDS: lactobacillus rhamnosus 10,000 MMU CELLS/CAPSULE PO SCH (20:44)
[2020-12-26] MEDS: insulin glargine (Lantus) pen - multi-dose SQ SCH (21:00)
[2020-12-26 22:05] LABS: HEMATOCRIT 22.5 % (35.0-45.0); HEMOGLOBIN 7.4 g/dl (12.0-16.0); MEAN CORPUSCULAR HEMOGLOBIN 31.2 PG (27.0-31.0); MEAN CORPUSCULAR VOLUME 94.4 FL (78-98); MEAN PLATELET VOLUME 7.7 FL (7.4-10.4); PLATELET COUNT 215 X10'3 (140-440); RED BLOOD COUNT 2.39 X10'6 (4.20-5.60); WHITE BLOOD COUNT 7.3 X10'3 (4.5-11.0)
--- NOTE | 2020-12-26 23:00 | NUR ---
Notified Notified Dr. Manning of pt having congestion/wet cough and patient also asking for something to sleep. Addendum: 12/27/20 at 0248 by Gloria Brooke RN Dr. Manning put in orders for melatonin 3 mg nightly and Robitussin.
[2020-12-26] MEDS ORDERED: guaiFENesin 200 MG/10 ML oral syrup UD cup PO PRN (23:10)
[2020-12-26] MEDS ORDERED: Melatonin 3mg tablet PO ONE (23:15)
[2020-12-27] MEDS ORDERED: LORazepam 2 mg/ml vial IV ONE (01:00)
--- NOTE | 2020-12-27 01:00 | NUR ---
MD Weinstein Called Dr. Manning and notified about patient having outburst, combative, hyperventilating and wanting to go home. Tried calming pt but did not work. Addendum: 12/27/20 at 0246 by Gloria Brooke RN Dr. Hargrove says to put in order for Ativan 1 mg IV.
[2020-12-27 02:00] VITALS: BP 155/57
[2020-12-27 02:28] LABS: BASOPHILS # (AUTO) 0.1 X10'3 (0-0.2); BASOPHILS % (AUTO) 1.6 % (0-1); EOSINOPHILS # (AUTO) 0.3 X10'3 (0-0.9); EOSINOPHILS % (AUTO) 4.8 % (0-6); HEMOGLOBIN 7.4 g/dl (12.0-16.0); LYMPHOCYTES # (AUTO) 2.2 X10'3 (1.1-4.8); MEAN CORPUSCULAR HEMOGLOBIN 31.6 PG (27.0-31.0); MEAN CORPUSCULAR HGB CONC 33.9 g/dL (33.0-36.5); MEAN CORPUSCULAR VOLUME 93.1 FL (78-98); MEAN PLATELET VOLUME 7.4 FL (7.4-10.4); MONOCYTES # (AUTO) 0.6 X10'3 (0-0.9); MONOCYTES % (AUTO) 8.9 % (2-12); NEUTROPHILS # (AUTO) 3.6 X10'3 (1.8-7.7); NEUTROPHILS % (AUTO) 52.7 % (42-75); PLATELET COUNT 208 X10'3 (140-440); RED BLOOD COUNT 2.33 X10'6 (4.20-5.60); WHITE BLOOD COUNT 6.8 X10'3 (4.5-11.0)
[2020-12-27 02:36] LABS: HEMATOCRIT 21.7 % (35.0-45.0)
[2020-12-27 02:37] LABS: ALBUMIN 2.2 G/DL (3.4-5.0); ANION GAP 10 (8-16); BLOOD UREA NITROGEN 34 MG/DL (7-18); BUN/CREATININE RATIO 16.1 (6.6-38.0); CALCIUM 7.2 MG/DL (8.5-10.1); CHLORIDE 106 MMOL/L (99-107); CREATININE 2.11 MG/DL (0.40-0.90); GLUCOSE 133 MG/DL (70-104); POTASSIUM 4.2 MMOL/L (3.5-5.1); SODIUM 135 MMOL/L (135-145); TOTAL CARBON DIOXIDE 19.5 MMOL/L (24-32); eGFR 22 ML/MIN
--- NOTE | 2020-12-27 02:41 | NUR ---
Notified Called Dr. Reno and notified of 0200 critical HCT 21.7. MD aware no orders given at this time.
[2020-12-27] MEDS: Dextrose 10%-water IV solution 1,000 ML IV SCH ×2 (06:44→15:40)
[2020-12-27] MEDS: CefTRIAXone/D5W-Rocephin 1gm 50 ML IV SCH (08:07)
[2020-12-27] MEDS: diltiazem 30mg tablet PO SCH ×2 (08:09→20:22)
[2020-12-27] MEDS: cloNIDine 0.1 mg tablet PO SCH ×2 (08:09→20:22)
[2020-12-27] MEDS: nitrofuran/nitrofuran macrocrysal 100 MG capsule PO SCH (08:09)
[2020-12-27] MEDS: atorvastatin 20mg tablet PO SCH (08:09)
[2020-12-27] MEDS: docusate sod 100mg capsule PO SCH ×2 (08:09→20:23)
[2020-12-27] MEDS: hydrALAZINE 25 MG tablet PO SCH ×3 (08:10→20:23)
[2020-12-27] MEDS: clopidogrel 75mg tablet PO SCH (08:10)
[2020-12-27] MEDS: lactobacillus rhamnosus 10,000 MMU CELLS/CAPSULE PO SCH ×2 (08:10→20:23)
[2020-12-27 11:00] VITALS: BP 105/73
[2020-12-27 15:00] VITALS: BP 153/55
[2020-12-27 16:50] LABS: OCCULT BLOOD STOOL NEGATIVE (Neg)
--- NOTE | 2020-12-27 18:32 | NUR ---
Problems reprioritized. Patient report given, questions answered & plan of care reviewed with Kristine BARBOSA.
[2020-12-27 20:00] VITALS: BP 112/52
[2020-12-27] MEDS: Melatonin 3mg tablet PO SCH (20:23)
[2020-12-27] MEDS: insulin glargine (Lantus) pen - multi-dose SQ SCH (21:00)
[2020-12-27 21:33] LABS: HEMATOCRIT 24.8 % (35.0-45.0); HEMOGLOBIN 8.1 g/dl (12.0-16.0); MEAN CORPUSCULAR HEMOGLOBIN 31.1 PG (27.0-31.0); MEAN CORPUSCULAR HGB CONC 32.8 g/dL (33.0-36.5); MEAN CORPUSCULAR VOLUME 94.7 FL (78-98); MEAN PLATELET VOLUME 7.6 FL (7.4-10.4); PLATELET COUNT 221 X10'3 (140-440); RED BLOOD COUNT 2.61 X10'6 (4.20-5.60); RED CELL DISTRIBUTION WIDTH 14.7 % (11.5-14.5); WHITE BLOOD COUNT 7.9 X10'3 (4.5-11.0)
[2020-12-27 22:00] VITALS: BP 118/61
[2020-12-28 02:00] VITALS: BP 87/48
--- NOTE | 2020-12-28 02:04 | NUR ---
During 2100 med pass i accidently miss read the omnicell and pulled out only 1 diltiazem rather than 3. I went back to pull out 2 more diltiazem to have the adequate amount for the patient. Overall, i only pulled 3 diltiazem but the omnicell thinks i pulled 5.
[2020-12-28] MEDS: Dextrose 10%-water IV solution 1,000 ML IV SCH (04:39)
--- NOTE | 2020-12-28 06:25 | NUR ---
Problems reprioritized. Patient report given, questions answered & plan of care reviewed with CHELSEY Salgado.
[2020-12-28 07:00] VITALS: BP 112/52
[2020-12-28 07:24] LABS: BASOPHILS # (AUTO) 0.1 X10'3 (0-0.2); BASOPHILS % (AUTO) 0.7 % (0-1); EOSINOPHILS # (AUTO) 0.5 X10'3 (0-0.9); EOSINOPHILS % (AUTO) 5.8 % (0-6); HEMATOCRIT 25.4 % (35.0-45.0); HEMOGLOBIN 8.4 g/dl (12.0-16.0); LYMPHOCYTES # (AUTO) 1.9 X10'3 (1.1-4.8); LYMPHOCYTES % (AUTO) 23.8 % (21-51); MEAN CORPUSCULAR HEMOGLOBIN 31.5 PG (27.0-31.0); MEAN CORPUSCULAR VOLUME 95.3 FL (78-98); MEAN PLATELET VOLUME 7.8 FL (7.4-10.4); MONOCYTES # (AUTO) 0.6 X10'3 (0-0.9); NEUTROPHILS % (AUTO) 61.7 % (42-75); PLATELET COUNT 208 X10'3 (140-440); RED BLOOD COUNT 2.66 X10'6 (4.20-5.60); RED CELL DISTRIBUTION WIDTH 14.6 % (11.5-14.5); WHITE BLOOD COUNT 8.1 X10'3 (4.5-11.0)
[2020-12-28 07:39] LABS: ALANINE AMINOTRANSFERASE 13 U/L (12-78); ALBUMIN 2.4 G/DL (3.4-5.0); ALBUMIN/GLOBULIN RATIO 0.7 (1.1-1.5); ALKALINE PHOSPHATASE 45 IU/L (46-116); ANION GAP 12 (8-16); ASPARTATE AMINO TRANSFERASE 14 U/L (10-37); BILIRUBIN,TOTAL 0.2 MG/DL (0.1-1.0); BLOOD UREA NITROGEN 26 MG/DL (7-18); BUN/CREATININE RATIO 14.9 (6.6-38.0); CALCIUM 7.2 MG/DL (8.5-10.1); CHLORIDE 105 MMOL/L (99-107); CREATININE 1.75 MG/DL (0.40-0.90); GLUCOSE 106 MG/DL (70-104); POTASSIUM 4.8 MMOL/L (3.5-5.1); SODIUM 135 MMOL/L (135-145); TOTAL CARBON DIOXIDE 17.9 MMOL/L (24-32); TOTAL PROTEIN 5.8 G/DL (6.4-8.2); eGFR 28 ML/MIN
[2020-12-28] MEDS: CefTRIAXone/D5W-Rocephin 1gm 50 ML IV SCH (08:54)
[2020-12-28] MEDS: clopidogrel 75mg tablet PO SCH (08:55)
[2020-12-28] MEDS: atorvastatin 20mg tablet PO SCH (08:55)
[2020-12-28] MEDS: hydrALAZINE 25 MG tablet PO SCH ×3 (08:55→20:59)
[2020-12-28] MEDS: diltiazem 30mg tablet PO SCH ×2 (08:55→20:59)
[2020-12-28] MEDS: lactobacillus rhamnosus 10,000 MMU CELLS/CAPSULE PO SCH ×2 (08:55→20:54)
[2020-12-28] MEDS: nitrofuran/nitrofuran macrocrysal 100 MG capsule PO SCH (08:55)
[2020-12-28] MEDS: docusate sod 100mg capsule PO SCH ×2 (08:55→20:53)
[2020-12-28] MEDS: cloNIDine 0.1 mg tablet PO SCH ×2 (08:55→20:54)
[2020-12-28 11:00] VITALS: BP_SYST 122; BP_SYST 135; BP_SYST 137; BP_DIAS 46; BP_DIAS 50; BP_DIAS 62
[2020-12-28 15:00] VITALS: BP 136/43
[2020-12-28 18:00] VITALS: BP 142/62
[2020-12-28] MEDS: Melatonin 3mg tablet PO SCH (20:54)
[2020-12-28] MEDS: insulin glargine (Lantus) pen - multi-dose SQ SCH (21:00)
[2020-12-28 22:00] VITALS: BP 149/67
[2020-12-29] VITALS (7 sets, daily range): BP systolic 104–175; BP diastolic 51–103
--- NOTE | 2020-12-29 02:00 | NUR ---
pt refused orthostatic vital signs
[2020-12-29] MEDS: temazepam 15mg capsule PO PRN (03:55)
[2020-12-29] MEDS: CefTRIAXone/D5W-Rocephin 1gm 50 ML IV SCH (07:56)
[2020-12-29] MEDS: docusate sod 100mg capsule PO SCH ×2 (07:57→21:34)
[2020-12-29] MEDS: clopidogrel 75mg tablet PO SCH (07:57)
[2020-12-29] MEDS: diltiazem 30mg tablet PO SCH ×2 (07:57→21:35)
[2020-12-29] MEDS: lactobacillus rhamnosus 10,000 MMU CELLS/CAPSULE PO SCH ×2 (07:57→21:34)
[2020-12-29] MEDS: atorvastatin 20mg tablet PO SCH (07:58)
[2020-12-29] MEDS: cloNIDine 0.1 mg tablet PO SCH ×2 (07:58→21:35)
[2020-12-29] MEDS: nitrofuran/nitrofuran macrocrysal 100 MG capsule PO SCH (07:58)
[2020-12-29] MEDS: hydrALAZINE 25 MG tablet PO SCH ×3 (07:59→21:36)
[2020-12-29] MEDS: furosemide 20MG tablet PO SCH (21:34)
[2020-12-29] MEDS: Melatonin 3mg tablet PO SCH (21:35)
[2020-12-29] MEDS: insulin glargine (Lantus) pen - multi-dose SQ SCH (22:00)
--- NOTE | 2020-12-29 22:26 | NUR ---
2000 Orthostatic vitals were positive. SBP sitting 147 and 104 standing
[2020-12-30] VITALS (7 sets, daily range): BP systolic 14–175; BP diastolic 39–88
[2020-12-30] MEDS: temazepam 15mg capsule PO PRN (00:59)
--- NOTE | 2020-12-30 06:50 | NUR ---
Patient in room PCU 3021. I have received report from Isabel BARBOSA and had the opportunity to ask questions and assume patient care.
[2020-12-30] MEDS: CefTRIAXone/D5W-Rocephin 1gm 50 ML IV SCH (08:52)
[2020-12-30] MEDS: clopidogrel 75mg tablet PO SCH (08:52)
[2020-12-30] MEDS: lactobacillus rhamnosus 10,000 MMU CELLS/CAPSULE PO SCH ×2 (08:53→21:49)
[2020-12-30] MEDS: diltiazem 30mg tablet PO SCH ×2 (08:53→21:47)
[2020-12-30] MEDS: nitrofuran/nitrofuran macrocrysal 100 MG capsule PO SCH (08:54)
[2020-12-30] MEDS: atorvastatin 20mg tablet PO SCH (08:55)
[2020-12-30] MEDS: hydrALAZINE 25 MG tablet PO SCH ×3 (08:55→21:49)
[2020-12-30] MEDS: cloNIDine 0.1 mg tablet PO SCH ×2 (08:56→21:48)
[2020-12-30] MEDS: docusate sod 100mg capsule PO SCH ×2 (08:57→21:48)
[2020-12-30] MEDS: furosemide 20MG tablet PO SCH ×2 (08:58→21:49)
--- NOTE | 2020-12-30 10:29 | NUR ---
Initial: Pt admitted w/ increasing confusion per EMR, found to have encephalopathy possibly secondary to UTI. Pt currently on Puree/Heart Healthy diet per ST w/ low PO intake, avg 39% x 9 meals not meeting needs. Communicated w/ RN recommendation to liberalize to Regular diet give pt geriatric age and lipid panel WNL. LBM 12/27 receiving routine colace. Will continue to monitor and make recommendations as appropriate. Recs: 1. Liberalize to Regular diet, Puree texture per ST 2. Monitor need for ONS pending further PO 3. Bowel care per rx 4. Scaled wt this admit, weekly wts thereafter Addendum: 12/30/20 at [address] Amended: Links added.
[2020-12-30 10:59] LABS: BASOPHILS # (AUTO) 0.1 X10'3 (0-0.2); BASOPHILS % (AUTO) 1.1 % (0-1); EOSINOPHILS # (AUTO) 0.2 X10'3 (0-0.9); EOSINOPHILS % (AUTO) 3.2 % (0-6); HEMATOCRIT 25.4 % (35.0-45.0); HEMOGLOBIN 8.2 g/dl (12.0-16.0); LYMPHOCYTES # (AUTO) 1.7 X10'3 (1.1-4.8); LYMPHOCYTES % (AUTO) 23.4 % (21-51); MEAN CORPUSCULAR HEMOGLOBIN 31.1 PG (27.0-31.0); MEAN CORPUSCULAR HGB CONC 32.3 g/dL (33.0-36.5); MEAN CORPUSCULAR VOLUME 96.3 FL (78-98); MEAN PLATELET VOLUME 7.7 FL (7.4-10.4); MONOCYTES # (AUTO) 0.6 X10'3 (0-0.9); MONOCYTES % (AUTO) 7.8 % (2-12); NEUTROPHILS # (AUTO) 4.8 X10'3 (1.8-7.7); NEUTROPHILS % (AUTO) 64.5 % (42-75); PLATELET COUNT 207 X10'3 (140-440); RED BLOOD COUNT 2.64 X10'6 (4.20-5.60); WHITE BLOOD COUNT 7.4 X10'3 (4.5-11.0)
[2020-12-30 11:08] LABS: ALBUMIN 2.4 G/DL (3.4-5.0); ANION GAP 11 (8-16); BLOOD UREA NITROGEN 30 MG/DL (7-18); BUN/CREATININE RATIO 15.6 (6.6-38.0); CHLORIDE 109 MMOL/L (99-107); CREATININE 1.92 MG/DL (0.40-0.90); GLUCOSE 106 MG/DL (70-104); POTASSIUM 4.7 MMOL/L (3.5-5.1); SODIUM 140 MMOL/L (135-145); TOTAL CARBON DIOXIDE 19.6 MMOL/L (24-32); eGFR 25 ML/MIN
--- NOTE | 2020-12-30 18:12 | NUR ---
[place] Medication Administration: For this medication-pass time frame, all medication were reviewed, dispensed, administered and documented per hospital policy by Gena BARBOSA.
--- NOTE | 2020-12-30 18:12 | NUR ---
[place] documentation: I have reviewed and agree with all interventions, assessments performed and documented by Gena BARBOSA.
--- NOTE | 2020-12-30 18:37 | NUR ---
Problems reprioritized. Patient report given, questions answered & plan of care reviewed with Gena BARBOSA. Patient stable at transfer of care.
[2020-12-30] MEDS: Melatonin 3mg tablet PO SCH (21:50)
[2020-12-31] VITALS (7 sets, daily range): BP systolic 113–179; BP diastolic 48–98
--- NOTE | 2020-12-31 06:44 | NUR ---
Problems reprioritized. Patient report given, questions answered & plan of care reviewed with Javier/Soo BARBOSA.
[2020-12-31] MEDS: atorvastatin 20mg tablet PO SCH (08:43)
[2020-12-31] MEDS: diltiazem 30mg tablet PO SCH ×2 (08:43→21:39)
[2020-12-31] MEDS: cloNIDine 0.1 mg tablet PO SCH ×2 (08:44→21:38)
[2020-12-31] MEDS: hydrALAZINE 25 MG tablet PO SCH ×3 (08:44→21:45)
[2020-12-31] MEDS: lactobacillus rhamnosus 10,000 MMU CELLS/CAPSULE PO SCH ×2 (08:44→21:38)
[2020-12-31] MEDS: furosemide 20MG tablet PO SCH ×2 (08:44→21:40)
[2020-12-31] MEDS: docusate sod 100mg capsule PO SCH ×2 (08:44→21:40)
[2020-12-31] MEDS: clopidogrel 75mg tablet PO SCH (08:44)
[2020-12-31] MEDS: CefTRIAXone/D5W-Rocephin 1gm 50 ML IV SCH (08:45)
[2020-12-31] MEDS: nitrofuran/nitrofuran macrocrysal 100 MG capsule PO SCH (09:04)
--- NOTE | 2020-12-31 18:21 | NUR ---
Problems reprioritized. Patient report given, questions answered & plan of care reviewed with BRONSON BARBOSA.
[2020-12-31] MEDS: Melatonin 3mg tablet PO SCH (21:37)
[2021-01-01 02:58] VITALS: BP 171/59
[2021-01-01] MEDS: temazepam 15mg capsule PO PRN (03:09)
[2021-01-01 03:53] VITALS: BP 160/71
[2021-01-01 07:00] VITALS: BP 180/77
[2021-01-01 08:20] LABS: BASOPHILS # (AUTO) 0.1 X10'3 (0-0.2); BASOPHILS % (AUTO) 1.5 % (0-1); EOSINOPHILS # (AUTO) 0.2 X10'3 (0-0.9); EOSINOPHILS % (AUTO) 2.9 % (0-6); HEMATOCRIT 25.8 % (35.0-45.0); HEMOGLOBIN 8.5 g/dl (12.0-16.0); LYMPHOCYTES % (AUTO) 31.4 % (21-51); MEAN CORPUSCULAR HGB CONC 32.9 g/dL (33.0-36.5); MEAN CORPUSCULAR VOLUME 94.3 FL (78-98); MEAN PLATELET VOLUME 7.3 FL (7.4-10.4); MONOCYTES # (AUTO) 0.6 X10'3 (0-0.9); MONOCYTES % (AUTO) 9.3 % (2-12); NEUTROPHILS # (AUTO) 3.5 X10'3 (1.8-7.7); NEUTROPHILS % (AUTO) 54.9 % (42-75); PLATELET COUNT 206 X10'3 (140-440); RED BLOOD COUNT 2.74 X10'6 (4.20-5.60); RED CELL DISTRIBUTION WIDTH 14.8 % (11.5-14.5); WHITE BLOOD COUNT 6.3 X10'3 (4.5-11.0)
[2021-01-01] MEDS: furosemide 20MG tablet PO SCH (08:26)
[2021-01-01] MEDS: lactobacillus rhamnosus 10,000 MMU CELLS/CAPSULE PO SCH (08:26)
[2021-01-01] MEDS: docusate sod 100mg capsule PO SCH (08:26)
[2021-01-01] MEDS: clopidogrel 75mg tablet PO SCH (08:26)
[2021-01-01] MEDS: atorvastatin 20mg tablet PO SCH (08:26)
[2021-01-01] MEDS: diltiazem 30mg tablet PO SCH (08:26)
[2021-01-01] MEDS: CefTRIAXone/D5W-Rocephin 1gm 50 ML IV SCH (08:26)
[2021-01-01] MEDS: hydrALAZINE 25 MG tablet PO SCH (08:27)
[2021-01-01] MEDS: cloNIDine 0.1 mg tablet PO SCH (08:27)
[2021-01-01 08:30] LABS: ALBUMIN 2.5 G/DL (3.4-5.0); ANION GAP 10 (8-16); BLOOD UREA NITROGEN 30 MG/DL (7-18); CALCIUM 6.7 MG/DL (8.5-10.1); CHLORIDE 106 MMOL/L (99-107); CREATININE 1.88 MG/DL (0.40-0.90); GLUCOSE 83 MG/DL (70-104); POTASSIUM 3.9 MMOL/L (3.5-5.1); SODIUM 138 MMOL/L (135-145); TOTAL CARBON DIOXIDE 21.7 MMOL/L (24-32); eGFR 25 ML/MIN
[2021-01-01] MEDS ORDERED: TEMA15CA PO (10:21)
[2021-01-01 11:00] VITALS: BP 167/69
--- NOTE | 2021-01-01 11:38 | NUR ---
Student documentation: I have reviewed and agree with all interventions, assessments performed and documented by [place], nursing technician.
--- NOTE | 2021-01-01 11:38 | NUR ---
Student Medication Administration: For this medication-pass time frame, all medication were reviewed, dispensed, administered and documented per hospital policy by cali Coleman.
--- NOTE | 2021-01-01 15:32 | NUR ---
Patient stable for discharge per MD order, all discharge instructions reviewed with patient and all questions answered. PIV discontinued, cannula intact. Telemetry discontinued, telecom analyst notified. All belongings collected and sent with patient. New prescriptions faxed to pharmacy. Patient picked up by transport van by transport personnel, wheeled to lobby by staff.
[2021-03-11] MEDS ORDERED: ESTRADIOL VG SCH (08:00)
== END 2021-01-01 14:00 | disposition hospice, home (50) | DRG 689 ==
LOC: ER 11:11 → ED HOLD 14:04 → PCU 3S 21:00
PROVIDERS: ADMIT Internal Medicine; ATTEND Internal Medicine
PROC: 30233N1 Transfusion of Nonautologous Red Blood Cells into Peripheral Vein, Percutaneous Approach (ICD-10-PCS; principal; 2020-12-26)
DX: N39.0 Urinary tract infection, site not specified (principal); E43 Unspecified severe protein-calorie malnutrition; G93.41 Metabolic encephalopathy; N17.0 Acute kidney failure with tubular necrosis; Z68.1 Body mass index [BMI] 19.9 or less, adult; N18.30 Chronic kidney disease, stage 3 unspecified; E16.2 Hypoglycemia, unspecified; E78.5 Hyperlipidemia, unspecified; F03.90 Unspecified dementia, unspecified severity, without behavioral disturbance, psychotic disturbance, mood disturbance, and anxiety; I12.9 Hypertensive chronic kidney disease with stage 1 through stage 4 chronic kidney disease, or unspecified chronic kidney disease; F17.210 Nicotine dependence, cigarettes, uncomplicated; F41.9 Anxiety disorder, unspecified; M25.561 Pain in right knee; E86.0 Dehydration; I25.10 Atherosclerotic heart disease of native coronary artery without angina pectoris; B96.4 Proteus (mirabilis) (morganii) as the cause of diseases classified elsewhere; Z20.822 Contact with and (suspected) exposure to COVID-19; J44.9 Chronic obstructive pulmonary disease, unspecified; Z66 Do not resuscitate; D63.8 Anemia in other chronic diseases classified elsewhere; Z85.41 Personal history of malignant neoplasm of cervix uteri; Z86.73 Personal history of transient ischemic attack (TIA), and cerebral infarction without residual deficits; Z90.710 Acquired absence of both cervix and uterus; Z88.0 Allergy status to penicillin; Z88.2 Allergy status to sulfonamides; Z88.8 Allergy status to other drugs, medicaments and biological substances; Z90.49 Acquired absence of other specified parts of digestive tract; Z82.49 Family history of ischemic heart disease and other diseases of the circulatory system; I25.2 Old myocardial infarction; Z79.899 Other long term (current) drug therapy
CPT/HCPCS: 36415; 36430; 70450; 71045; 72170; 73560; 76937; 80048; 80053; 81001; 82272; 82948; 83036; 83880; 85025; 85027; 86885; 86900; 86901; 86920; 87077; 87081; 87088; 87186; 87635; 92508; 92616; 93005; 93306; 97110; 97161; 97530; 97535; 99285; G0378; J0696; J1815; J2060; P9016